=== PATIENT | female | born 1955 | race Caucasian/White ===

== ENCOUNTER 2017-07-07 10:28 | Inpatient (IN) | payer BC, MEDICARE ==
--- NOTE | 2017-07-07 11:04 | ED ---
General Adult HPI - General Chief complaint: Shortness of Breath Stated complaint: Difficulty Breathing Time Seen by Provider: 07/07/17 10:30 Source: patient, RN notes reviewed Mode of arrival: EMS Limitations: physical limitation - History of Present Illness Initial comments: This is a 62-year-old female presents emergency Department with a history of COPD and continues to smoke. Patient states the last 4 days or difficulty breathing is gotten progressively worse. Patient states it got so bad today that she had called EMS. EMS stated that her pulse ox was in the 70s on room air and 91 on BiPAP in the ambulance. Patient states she's had no fever or chills she's had no chest pain or palpitations. Patient states she has been coughing but hasn't been coughing a lot up. Patient denies any abdominal pain patient denies any nausea vomiting diarrhea. Patient denies any lightheadedness or dizziness. - Related Data Home Medications Medication Instructions Recorded Confirmed ALPRAZolam [Xanax] 2 mg PO DAILY PRN 07/07/17 07/07/17 Acyclovir [Zovirax] 800 mg PO BID 07/07/17 07/07/17 Albuterol Sulfate [Proair Hfa] 2 puff INHALATION RT-QID PRN 07/07/17 07/07/17 Atorvastatin [Lipitor] 10 mg PO HS 07/07/17 07/07/17 Breo (Unknown Dose) 1 puff INHALATION RT-DAILY 07/07/17 07/07/17 Cyclobenzaprine [Flexeril] 10 mg PO BID 07/07/17 07/07/17 HYDROcodone/APAP 10-325MG [[place] 1 tab PO BID PRN 07/07/17 07/07/17 10-325] Ibuprofen [Motrin] 800 mg PO TID PRN 07/07/17 07/07/17 Metoprolol Tartrate [Lopressor] 12.5 mg PO BID 07/07/17 07/07/17 Tiotropium [place] [Spiriva] 1 cap INHALATION RT-DAILY 07/07/17 07/07/17 Allergies Allergy/AdvReac Type Severity Reaction Status Date / Time Iodinated Contrast- Oral and Allergy Unknown Verified 07/07/17 10:50 IV Dye iodine Allergy Unknown Verified 07/07/17 10:50 Sulfa (Sulfonamide Allergy Unknown Verified 07/07/17 10:50 Antibiotics) Review of Systems ROS Statement: Those systems with pertinent positive or pertinent negative responses have been documented in the HPI. ROS Other: All systems not noted in ROS Statement are negative. Past Medical History Past Medical History: COPD, Hypertension History of Any Multi-Drug Resistant Organisms: None Reported Past Surgical History: Section Additional Past Surgical History / Comment(s): eye Past Psychological History: Anxiety Smoking Status: Current every day smoker Past Alcohol Use History: None Reported Past Drug Use History: None Reported General Exam - General Exam Comments Initial Comments: GENERAL: Patient is well-developed and well-nourished. Patient is nontoxic and well- hydrated and is in moderate distress. ENT: Neck is soft and supple. No significant lymphadenopathy is noted. Oropharynx is clear. Moist mucous membranes. Neck has full range of motion without eliciting any pain. EYES: The sclera were anicteric and conjunctiva were pink and moist. Extraocular movements were intact and pupils were equal round and reactive to light. Eyelids were unremarkable. PULMONARY: She is diffusely wheezing. CARDIOVASCULAR: There is a regular rate and rhythm without any murmurs gallops or rubs. ABDOMEN: Soft and nontender with normal bowel sounds. No palpable organomegaly was noted. There is no palpable pulsatile mass. SKIN: Skin is clear with no lesions or rashes and otherwise unremarkable. NEUROLOGIC: Patient is alert and oriented x3. Cranial nerves II through XII are grossly intact. Motor and sensory are also intact. Normal speech, volume and content. Symmetrical smile. MUSCULOSKELETAL: Normal extremities with adequate strength and full range of motion. No lower extremity swelling or edema. No calf tenderness. LYMPHATICS: No significant lymphadenopathy is noted PSYCHIATRIC: Normal psychiatric evaluation. Normal interpersonal interactions appears functionally intact in deals appropriately with others. No signs of depression. No signs of anxiety. Limitations: physical limitation Course Vital Signs 07/07/17 07/07/17 07/07/17 10:28 10:35 11:33 Temperature 97.9 F Pulse Rate 109 H 106 H Respiratory 32 H 25 H Rate Blood Pressure 160/104 O2 Sat by Pulse 91 L 95 Oximetry 07/07/17 07/07/17 12:03 12:16 Temperature Pulse Rate 110 H 106 H Respiratory Rate Blood Pressure O2 Sat by Pulse Oximetry Medical Decision Making - Medical Decision Making EKG shows sinus tachycardia at 105 bpm MT interval 136 dresses 78 QT interval 320 QTC is 433. Patient's EKG shows no ST segment elevation. Chest x-ray shows COPD. Patient received a breathing treatments steroids as well as BiPAP and is feeling much improved and is much more comfortable. I spoke with Dr. Esparza he agreed to admit the patient I wrote admitting orders and I continued the breathing treatments steroids on the floor. - Lab Data Result diagrams: 07/07/17 11:09 07/07/17 11:09 Lab Results 07/07/17 07/07/17 07/07/17 Range/Units 11:09 11: 11:09 WBC 9.5 (3.8-10.6) k/uL RBC 4.16 (3.80-5.40) m/uL Hgb 13.8 (11.4-16.0) gm/dL Hct 42.7 (34.0-46.0) % MCV 102.7 H (80.0-100.0) fL MCH 33.2 (25.0-35.0) pg MCHC 32.3 (31.0-37.0) g/dL RDW 13.4 (11.5-15.5) % Plt Count 422 (150-450) k/uL Neutrophils % 81 % Lymphocytes % 6 % Monocytes % 11 % Eosinophils % 0 % Basophils % 0 % Neutrophils # 7.7 (1.3-7.7) k/uL Lymphocytes # 0.6 L (1.0-4.8) k/uL Monocytes # 1.0 (0-1.0) k/uL Eosinophils # 0.0 (0-0.7) k/uL Basophils # 0.0 (0-0.2) k/uL Manual Slide Review Performed Macrocytosis Slight PT (9.0-12.0) sec INR (<1.2) APTT (22.0-30.0) sec Sodium 140 (137-145) mmol/L Potassium 4.4 (3.5-5.1) mmol/L Chloride 100 (98-107) mmol/L Carbon Dioxide 26 (22-30) mmol/L Anion Gap 14 mmol/L BUN 14 (7-17) mg/dL Creatinine 0.46 L (0.52-1.04) mg/dL Est GFR (MDRD) Af Amer >60 (>60 ml/min/1.73 sqM) Est GFR (MDRD) Non-Af >60 (>60 ml/min/1.73 sqM) Glucose 136 H (74-99) mg/dL Calcium 9.3 (8.4-10.2) mg/dL Magnesium 1.7 (1.6-2.3) mg/dL Total Bilirubin 0.5 (0.2-1.3) mg/dL AST 39 H (14-36) U/L ALT 35 (9-52) U/L Alkaline Phosphatase 100 (38-126) U/L Total Creatine Kinase 234 H (30-135) U/L CK-MB (CK-2) 4.1 H* (0.0-2.4) ng/mL CK-MB (CK-2) Rel Index 1.8 Troponin I 0.092 H* (0.000-0.034) ng/mL Total Protein 7.2 (6.3-8.2) g/dL Albumin 3.9 (3.5-5.0) g/dL 07/07/17 Range/Units 11:09 WBC (3.8-10.6) k/uL RBC (3.80-5.40) m/uL Hgb (11.4-16.0) gm/dL Hct (34.0-46.0) % MCV (80.0-100.0) fL MCH (25.0-35.0) pg MCHC (31.0-37.0) g/dL RDW (11.5-15.5) % Plt Count (150-450) k/uL Neutrophils % % Lymphocytes % % Monocytes % % Eosinophils % % Basophils % % Neutrophils # (1.3-7.7) k/uL Lymphocytes # (1.0-4.8) k/uL Monocytes # (0-1.0) k/uL Eosinophils # (0-0.7) k/uL Basophils # (0-0.2) k/uL Manual Slide Review Macrocytosis PT 11.1 (9.0-12.0) sec INR 1.1 (<1.2) APTT 23.7 (22.0-30.0) sec Sodium (137-145) mmol/L Potassium (3.5-5.1) mmol/L Chloride (98-107) mmol/L Carbon Dioxide (22-30) mmol/L Anion Gap mmol/L BUN (7-17) mg/dL Creatinine (0.52-1.04) mg/dL Est GFR (MDRD) Af Amer (>60 ml/min/1.73 sqM) Est GFR (MDRD) Non-Af (>60 ml/min/1.73 sqM) Glucose (74-99) mg/dL Calcium (8.4-10.2) mg/dL Magnesium (1.6-2.3) mg/dL Total Bilirubin (0.2-1.3) mg/dL AST (14-36) U/L ALT (9-52) U/L Alkaline Phosphatase (38-126) U/L Total Creatine Kinase (30-135) U/L CK-MB (CK-2) (0.0-2.4) ng/mL CK-MB (CK-2) Rel Index Troponin I (0.000-0.034) ng/mL Total Protein (6.3-8.2) g/dL Albumin (3.5-5.0) g/dL Critical Care Time Critical Care Time: Yes Total Critical Care Time: 35 Disposition Clinical Impression: COPD with acute exacerbation Disposition: ADMITTED IP TO THIS HOSP Referrals: Hany Salmeron MD [Primary Care Provider] - 1-2 days Time of Disposition: 12:45
[2017-07-07] MEDS ORDERED: IPRATROPIUM 0.5 MG/2.5 ML NEBU INHALATION STA (11:26)
[2017-07-07] MEDS ORDERED: ALBUTEROL NEBULIZED 2.5 MG/3 ML INHALATION STA (11:26)
[2017-07-07 11:54] LABS: ALT 35 U/L (9-52); AST 39 U/L (14-36); Alkaline Phosphatase 100 U/L (38-126); Anion Gap 14 mmol/L; Blood Urea Nitrogen 14 mg/dL (7-17); Calcium 9.3 mg/dL (8.4-10.2); Carbon Dioxide 26 mmol/L (22-30); Chloride 100 mmol/L (98-107); Glucose 136 mg/dL (74-99); Magnesium 1.7 mg/dL (1.6-2.3); Non-African American GFR(MDRD) >60 (>60 ml/min/1.73 sqM); Potassium 4.4 mmol/L (3.5-5.1); Sodium 140 mmol/L (137-145); Total Bilirubin 0.5 mg/dL (0.2-1.3); Total Protein 7.2 g/dL (6.3-8.2)
[2017-07-07 12:00] LABS: Basophils % (A) 0 %; CH 32.9; CHCM 32.2; Eosinophils % (A) 0 %; HCT 42.7 % (34.0-46.0); HDW 2.41; HGB 13.8 gm/dL (11.4-16.0); Immature Gran Flag Slight; Luc # (Auto) 0.17; Luc % (Auto) 2; Lymphocytes # (A) 0.6 k/uL (1.0-4.8); Lymphocytes % (A) 6 %; MCH 33.2 pg (25.0-35.0); MCHC 32.3 g/dL (31.0-37.0); MCV 102.7 fL (80.0-100.0); Macrocytosis Slight; Mean Platelet Volume 7.1; Monocytes % (A) 11 %; Neutrophils # (A) 7.7 k/uL (1.3-7.7); Neutrophils % (A) 81 %; RBC 4.16 m/uL (3.80-5.40); RDW 13.4 % (11.5-15.5); WBC 9.5 k/uL (3.8-10.6); WBC (Perox) 9.86
[2017-07-07 12:02] LABS: INR 1.1 (<1.2); Partial Thromboplastin Time 23.7 sec (22.0-30.0); Prothrombin Time 11.1 sec (9.0-12.0)
--- NOTE | 2017-07-07 12:05 | XR ---
EXAMINATION TYPE: XR chest 1V portable DATE OF EXAM: 07/07/2017 COMPARISON: NONE HISTORY: Difficulty breathing TECHNIQUE: Single frontal view of the chest is obtained. FINDINGS: There are prominent lung volumes. Patient is rotated. Patchy density present at the lung b ases. Chondroid lesion present in the proximal right humerus. Heart size is normal. IMPRESSION: Findings compatible emphysema, correlate to exclude pneumonia. Follow-up recommended as indicated. Chondroid lesion may represent hepatoma or bone infarct, as indicated.
[2017-07-07 12:24] LABS: Manual Review Performed
[2017-07-07 12:29] LABS: Creatine Kinase MB 4.1 ng/mL (0.0-2.4); Troponin I 0.092 ng/mL (0.000-0.034)
[2017-07-07] MEDS: IPRATROPIUM-ALBUTEROL 3 ML NEB INHALATION PRN (17:28)
[2017-07-07] MEDS: methylPREDNISolone SOD SUCCI 125 MG/2 ML VIAL IV SCH (17:44)
[2017-07-07 19:40] LABS: Creatine Kinase MB 4.4 ng/mL (0.0-2.4); Troponin I 0.072 ng/mL (0.000-0.034)
[2017-07-07] MEDS: CYCLOBENZAPRINE 10 MG TAB PO SCH (20:41)
[2017-07-07] MEDS: ATORVASTATIN 10 MG TAB PO SCH (20:41)
[2017-07-07] MEDS: METOPROLOL TARTRATE 12.5 MG TAB PO SCH (20:51)
--- NOTE | 2017-07-07 23:24 | P.HPIM ---
History of Present Illness H&P Date: 07/07/17 Chief Complaint: Shortness of breath Patient is a 60-year-old female with known history of COPD and hypertension and actually good ejection came to the hospital with complaints of shortness of breath which is getting worse for the past 4 days. Patient states it got so bad today that she had called EMS. EMS stated that her pulse ox was in the 70s on room air and 91 on BiPAP in the ambulance. Patient states she's had no fever or chills she's had no chest pain or palpitations. Patient states she has been coughing but hasn't been coughing a lot up. Patient denies any abdominal pain patient denies any nausea vomiting diarrhea. Patient denies any lightheadedness or dizziness. Denied any recent illnesses. Patient denied any prior pulmonary follow-up. No history of intubation. Review of Systems Constitutional: Patient denies any fever or chills . No generalized weakness or weight loss. Abdomen: Patient denied nausea vomiting and diarrhea and abdominal pain. Cardiovascular: Patient denies any chest pain or short of breath no palpitations. No leg swelling Respiratory: Cough with minimal sputum production. Positive shortness of breath Neurologic: Patient denied any numbness or tingling headache. Musculoskeletal: Patient denies any complaints of joint swelling or deformity. Skin: Negative Psychiatric: Negative Endocrine: No heat or cold intolerance. No recent weight gain. Genitourinary: No dysuria or hematuria. All other 14 point ROS negative except the above Past Medical History Past Medical History: COPD, CVA/TIA, Hypertension Additional Past Medical History / Comment(s): Pt had either a TIA in past or had L arm weakness from cervical problems, double vision with surgical correction, pt denies high cholesterol. History of Any Multi-Drug Resistant Organisms: None Reported Past Surgical History: Section Additional Past Surgical History / Comment(s): Pt states she has had 3 eye surgeries to correct double vision, colonoscopy. Past Anesthesia/Blood Transfusion Reactions: No Reported Reaction Smoking Status: Current every day smoker - Past Family History Father Family Medical History: Myocardial Infarction (TN) Additional Family Medical History / Comment(s): Father of a massive [place] at the age of 6yrs Mother Family Medical History: Cancer Additional Family Medical History / Comment(s): Mother of lung cancer at the age of 64yrs. She was a smoker. Medications and Allergies Home Medications Medication Instructions Recorded Confirmed Type ALPRAZolam [Xanax] 2 mg PO DAILY PRN 07/07/17 07/07/17 History Albuterol Sulfate [Proair Hfa] 2 puff INHALATION RT-QID PRN 07/07/17 07/07/17 History Breo (Unknown Dose) 1 puff INHALATION RT-DAILY 07/07/17 07/07/17 History HYDROcodone/APAP 10-325MG [[place] 1 tab PO BID PRN 07/07/17 07/07/17 History 10-325] Ibuprofen [Motrin] 800 mg PO TID PRN 07/07/17 07/07/17 History Metoprolol Tartrate [Lopressor] 12.5 mg PO BID 07/07/17 07/07/17 History Tiotropium [place] [Spiriva] 1 cap INHALATION RT-DAILY 07/07/17 07/07/17 History Allergies Allergy/AdvReac Type Severity Reaction Status Date / Time Iodinated Contrast- Oral and Allergy Unknown Verified 07/07/17 10:50 IV Dye iodine Allergy Unknown Verified 07/07/17 10:50 Sulfa (Sulfonamide Allergy Unknown Verified 07/07/17 10:50 Antibiotics) Physical Exam Vitals: Vital Signs Temp Pulse Pulse Resp BP BP Pulse Ox 07/07/17 15:51 96.2 F L 89 18 116/80 93 L 07/07/17 13:42 98.3 F 103 H 22 189/98 07/07/17 13:22 97.9 F 98 26 H 159/101 98 07/07/17 12:43 107 H 20 157/100 98 07/07/17 12:16 106 H 07/07/17 12:03 110 H 07/07/17 11:33 106 H 07/07/17 10:35 25 H 95 07/07/17 10:28 97.9 F 109 H 32 H 160/104 91 L Intake and Output 07/07/17 07/07/17 07/07/17 06:59 14:59 22:59 Other: # Voids 0 # Bowel Movements 0 Weight 43.273 kg Patient Weight 07/08/17 06:59 Weight 43.273 kg PHYSICAL EXAMINATION: Patient is lying in the bed comfortably, no acute distress, awake alert and oriented.. HEENT: Normocephalic. Neck is supple. Pupils reactive. Nostrils clear. Oral cavity is moist. Ears reveal no drainage. Neck reveals no JVD, carotid bruits, or thyromegaly. CHEST EXAMINATION: Trachea is central. Symmetrical expansion. Bilateral decreased air entry and diffuse wheezing. CARDIAC: Normal S1, S2 with no gallops. No murmurs ABDOMEN: Soft. Bowel sounds normal. No organomegaly. No abdominal bruits. Extremities: reveal no edema. No clubbing or cyanosis Neurologically awake, alert, oriented x3 with well-coordinated movements. No focal deficits noted Skin: No rash or skin lesions. Psychiatric: Operative. Nonsuicidal Musculoskeletal: No joint swelling or deformity. Normal range of motion. Results CBC & Chem 7: 07/07/17 11:09 07/07/17 11:09 Labs: Abnormal Lab Results - Last 24 Hours (Table) 07/07/17 07/07/17 07/07/17 Range/Units 11:09 11:09 11:09 MCV 102.7 H (80.0-100.0) fL Lymphocytes # 0.6 L (1.0-4.8) k/uL Creatinine 0.46 L (0.52-1.04) mg/dL Glucose 136 H (74-99) mg/dL AST 39 H (14-36) U/L Total Creatine Kinase 234 H (30-135) U/L CK-MB (CK-2) 4.1 H* (0.0-2.4) ng/mL Troponin I 0.092 H* (0.000-0.034) ng/mL Thrombosis Risk Factor Assmnt - DVT/VTE Prophylaxis DVT/VTE Prophylaxis: Pharmacologic Prophylaxis ordered - Choose All That Apply Any of the Below Risk Factors Present?: Yes Each Factor Represents 1 point: Abnormal pulmonary function (COPD) Other Risk Factors: Yes Each Risk Factor Represents 2 Points: Age 61-74 years Other congenital or acquired thrombophilia - If yes, enter type in comment: No Thrombosis Risk Factor Assessment Total Risk Factor Score: 3 Thrombosis Risk Factor Assessment Level: Moderate Risk Assessment and Plan Plan: #1 acute hypoxic respiratory failure secondary to COPD exacerbation #2 acute COPD examination #3 elevated troponin level. Likely due to demand mismatch. Possible Non STEMI #4 nicotine addiction #5 history of TIA/CVA #6 DVT prophylaxis Plan: Patient will be continued on BiPAP machine and O2 therapy as needed. Continue with IV steroids and duonebs. Continue telemetry monitoring and serial troponin level. Will consult pulmonary and cardiology. Patient was counseled for smoking cessation. continue the current management and further recommendations based on the clinical course. Time with Patient: Greater than 30
[2017-07-08] MEDS: HEPARIN SODIUM,PORCINE 5,000 UNIT/ML 1 ML VIAL SQ SCH ×3 (00:14→17:10)
[2017-07-08] MEDS: methylPREDNISolone SOD SUCCI 125 MG/2 ML VIAL IV SCH ×4 (00:14→17:11)
[2017-07-08 06:37] LABS: Anion Gap 9 mmol/L; Blood Urea Nitrogen 16 mg/dL (7-17); Calcium 9.8 mg/dL (8.4-10.2); Carbon Dioxide 33 mmol/L (22-30); Chloride 97 mmol/L (98-107); Glucose 165 mg/dL (74-99); Non-African American GFR(MDRD) >60 (>60 ml/min/1.73 sqM); Potassium 4.8 mmol/L (3.5-5.1); Sodium 139 mmol/L (137-145)
[2017-07-08] MEDS: METOPROLOL TARTRATE 12.5 MG TAB PO SCH ×2 (08:36→21:19)
[2017-07-08] MEDS: ASPIRIN 81 MG PO SCH (08:36)
[2017-07-08] MEDS: CYCLOBENZAPRINE 10 MG TAB PO SCH ×2 (08:36→21:19)
--- NOTE | 2017-07-08 08:36 | CONS ---
CONSULTATION Mrs. Urbina is a 62-year-old female with a known history of severe chronic obstructive lung disease, history of chronic tobacco use, hypertension, who presented with progressive dyspnea. It has been going on for the last few days, much worse yesterday. She has been having a cough, productive of dark sputum. Patient has a known history of chronic tobacco use and is limited in her physical activity because of the dyspnea on exertion. The cardiology consultation was requested because of mild elevation of the troponin. She denies any symptoms of chest pain. She has no dizziness. No palpitation. No syncope. No PND, orthopnea, or peripheral edema. She has no prior history of cardiac disease. Her risk factors are remarkable for hypertension, chronic tobacco use. She is nondiabetic. Her lipid profile is not available. MEDICATION: At home include Spiriva, Lopressor 12.5 mg twice a day, Motrin, [place], Breo, albuterol, and alprazolam. REVIEW OF SYSTEMS: RESPIRATORY SYSTEM: She has severe dyspnea on exertion and a cough. GI SYSTEM: No recent GI bleed. No peptic ulcer disease. SYSTEM: No dysuria or hematuria. NERVOUS SYSTEM: No stroke or seizure. PHYSICAL EXAMINATION: She is 62-year-old female, alert, moderately dyspneic. Blood pressure running in the 130 to 160 with a heart rate in the 60s to 80s. HEAD: Normocephalic. EYES: Sclerae nonicteric. NECK: Good upstroke, no bruit, no distension. LUNGS: With severe decrease in the air exchange bilaterally with scattered wheezes. HEART: Regular rate and rhythm, S1, S2. No S3. No rub. ABDOMEN: Soft, nontender. Positive bowel sounds. No organomegaly. EXTREMITIES: No edema. Intact distal pulses. LAB DATA: Revealed BUN and creatinine of 16 and 0.6, potassium 4.8. Troponin 0.092, 0.072 and 0.088. Her white blood cells 9.5, hemoglobin of 13.8. EKG reveals sinus mechanism at a rate of 105 with poor R-wave progression, nonspecific ST-T wave changes. Chest x-ray is consistent with emphysema. IMPRESSION: 1. Severe chronic obstructive lung disease with exacerbation of chronic obstructive pulmonary disease and probable tracheobronchitis. 2. Mild elevation of troponin reflecting a type 2 event, related to the demand-supply mismatch. 3. Chronic tobacco use. 4. History of hypertension. RECOMMENDATION: From the cardiac standpoint, I do not believe that we are dealing with a primary ischemic event. I will obtain echocardiogram to evaluate the left ventricular systolic function and right-sided pressure. Patient will benefit from pulmonary evaluation in view of her severe obstructive lung disease. I discussed with the patient the importance of smoking cessation. Thank you for this consult. Will follow with you. [facility] / IVORYN: [id number] /
[2017-07-08] MEDS: IPRATROPIUM-ALBUTEROL 3 ML NEB INHALATION PRN ×4 (08:44→20:50)
--- NOTE | 2017-07-08 11:19 | ECHOF ---
Referral Reason:sob MEASUREMENTS -------- HEIGHT: 162.6 cm WEIGHT: 40.8 kg BP: RVIDd: 3.2 cm (< 3.3) IVSd: 0.7 cm (0.6 - 1.1) LVIDd: 3.4 cm (3.9 - 5.3) LVPWd: 0.9 cm (0.6 - 1.1) IVSs: 1.0 cm LVIDs: 1.6 cm LVPWs: 1.0 cm Ao Diam: 2.5 cm (2.0 - 3.7) AV Cusp: 1.2 cm (1.5 - 2.6) LA Diam: 2.5 cm (2.7 - 3.8) MV EXCURSION: 18.742 mm (> 18.000) MV EF SLOPE: 169 mm/s (70 - 150) EPSS: 0.6 cm MV E Manan: 0.87 m/s MV DecT: 191 ms MV A Manan: 0.68 m/s MV E/A Ratio: 1.30 AV maxP.44 mmHg AV meanP.07 mmHg RAP: 20.00 mmHg RVSP: 80.28 mmHg FINDINGS -------- Resting tachycardia (HR>100bpm). This was a technically difficult study with suboptimal views. Pt has severe COPD. Images taken from subcoastals. The left ventricular size is normal. Left ventricular wall thickness is normal. Overall left ventricular systolic function is normal with, an EF between 55 - 60 %. The right ventricle is mildly enlarged. The left atrium is normal in size. RA appears enlarged. Aortic valve is trileaflet and is mildly thickened. The mitral valve leaflets are mildly thickened. Moderate mitral regurgitation is present. Moderate tricuspid regurgitation present. There is moderate pulmonary hypertension.RVSP is 55 mm Pulmonic valve appears structurally normal. The aortic root size is normal. The inferior vena cava is severely dilated. The pericardium is normal. CONCLUSIONS -------- 1. Resting tachycardia (HR>100bpm). 2. Aortic valve is trileaflet and is mildly thickened. 3. The mitral valve leaflets are mildly thickened. 4. Moderate mitral regurgitation is present. 5. Moderate tricuspid regurgitation present. 6. Pulmonic valve appears structurally normal. 7. The aortic root size is normal. 8. The inferior vena cava is severely dilated. 9. Moderate pulmonary HTN 10. This was a technically difficult study with suboptimal views. 11. Pt has severe COPD. Images taken from subcoastals. 12. The left ventricular size is normal. 13. Left ventricular wall thickness is normal. 14. Overall left ventricular systolic function is normal with, an EF between 55 - 60 %. 15. The right ventricle is mildly enlarged. 16. The left atrium is normal in size. 17. RA appears enlarged. TRANSPLANT NURSE PRACTITIONER: Aury Ortega RDCS
--- NOTE | 2017-07-08 11:32 | P.CNPUL ---
History of Present Illness Consult date: 07/08/17 Reason for consult: dyspnea, COPD History of present illness: A very pleasant 62-year-old female patient was Hospital as for worsening shortness of breath. The patient is known to have COPD and she is a chronic smoker witnessed to smoke around 1 pack of cigarettes on a daily basis. Her breathing has been progressively getting worse and she had seen Dr. Salmeron on outpatient basis with treated this patient without any improvement. Subsequently the patient came into the emergency department yesterday because of significant respiratory distress and impending respiratory failure. At that point the patient was placed on a BiPAP and currently still on a BiPAP for respiratory support at a pressure of 10/5 cm of water and she is tolerating it well. She remains actively bronchospastic and wheezy. Her chest x-ray shows hyperinflation and enlarged lung volumes without any acute pulmonary infiltration or pneumonias. No signs of any failure. No change in mental status. No pleurisy. No hemoptysis. No angina. No swelling lower extremities. This is the patient's first hospitalization for an acute COPD exacerbation. The patient has not been utilizing oxygen or any form of regular inhalers at home. She has a nebulizer at home. No aspiration. No travel history. No recurrent pneumonias. Review of Systems Constitutional: Reports chronic pain, Reports fatigue, Reports poor appetite, Reports weakness Eyes: denies blurred vision, denies bulging eye, denies decreased vision Ears: deny: decreased hearing, ear discharge, earache Ears, nose, mouth and throat: Denies headache, Denies sore throat Cardiovascular: Reports decreased exercise tolerance, Reports dyspnea on exertion, Reports shortness of breath Respiratory: Reports cough, Reports cough with sputum, Reports dyspnea, Reports wheezing Gastrointestinal: Reports change in bowel habits, Reports loss of appetite Musculoskeletal: Denies myalgias Musculoskeletal: absent: ankle pain, ankle stiffness, ankle swelling Integumentary: Denies pruritus, Denies rash Neurological: Reports weakness Psychiatric: Reports anxiety, Reports sleep disturbances Endocrine: Denies fatigue, Denies weight change Past Medical History Past Medical History: COPD, CVA/TIA, Hypertension Additional Past Medical History / Comment(s): COPD, history of TIA, chronic neck pain secondary to degenerative arthritis, cachexia History of Any Multi-Drug Resistant Organisms: None Reported Past Surgical History: Section Additional Past Surgical History / Comment(s): Pt states she has had 3 eye surgeries to correct double vision, colonoscopy. Past Anesthesia/Blood Transfusion Reactions: No Reported Reaction Smoking Status: Current every day smoker (The patient smokes one pack of cigarettes a day in the past used to smoke more than that. She carries more than [id number] smoking history.) - Past Family History Father Family Medical History: Myocardial Infarction (MS) Additional Family Medical History / Comment(s): Father of a massive MS at the age of 6yrs Mother Family Medical History: Cancer Additional Family Medical History / Comment(s): Mother of lung cancer at the age of 64yrs. She was a smoker. Medications and Allergies Home Medications Medication Instructions Recorded Confirmed Type ALPRAZolam [Xanax] 2 mg PO DAILY PRN 07/07/17 07/07/17 History Albuterol Sulfate [Proair Hfa] 2 puff INHALATION RT-QID PRN 07/07/17 07/07/17 History Breo (Unknown Dose) 1 puff INHALATION RT-DAILY 07/07/17 07/07/17 History HYDROcodone/APAP 10-325MG [[place] 1 tab PO BID PRN 07/07/17 07/07/17 History 10-325] Ibuprofen [Motrin] 800 mg PO TID PRN 07/07/17 07/07/17 History Metoprolol Tartrate [Lopressor] 12.5 mg PO BID 07/07/17 07/07/17 History Tiotropium [place] [Spiriva] 1 cap INHALATION RT-DAILY 07/07/17 07/07/17 History Allergies Allergy/AdvReac Type Severity Reaction Status Date / Time Iodinated Contrast- Oral and Allergy Unknown Verified 07/07/17 10:50 IV Dye iodine Allergy Unknown Verified 07/07/17 10:50 Sulfa (Sulfonamide Allergy Unknown Verified 07/07/17 10:50 Antibiotics) Physical Exam Vitals: Vital Signs Temp Pulse Pulse Resp BP BP BP 07/08/17 09:03 100 07/08/17 08:48 100 07/08/17 08:47 16 07/08/17 08:36 97.8 F 76 22 180/85 07/08/17 04:30 98.2 F 57 L 18 161/94 07/08/17 00:00 97.2 F L 83 18 134/76 07/07/17 20:00 97.5 F L 95 20 175/84 07/07/17 17:37 102 H 07/07/17 17:28 100 07/07/17 15:51 96.2 F L 89 18 116/80 07/07/17 13:42 98.3 F 103 H 22 189/98 07/07/17 13:22 97.9 F 98 26 H 159/101 07/07/17 12:43 107 H 20 157/100 07/07/17 12:16 106 H 07/07/17 12:03 110 H 07/07/17 11:33 106 H Pulse Ox 07/08/17 09:03 07/08/17 08:48 07/08/17 08:47 96 07/08/17 08:36 86 L 07/08/17 04:30 98 07/08/17 00:00 96 07/07/17 20:00 96 07/07/17 17:37 07/07/17 17:28 07/07/17 15:51 93 L 07/07/17 13:42 07/07/17 13:22 98 07/07/17 12:43 98 07/07/17 12:16 07/07/17 12:03 07/07/17 11:33 Intake and Output 07/07/17 07/08/17 07/08/17 22:59 06:59 14:59 Intake Total 180 60 75 Output Total 200 Balance -20 60 75 Intake: Oral 180 60 75 Output: Urine 200 Other: Voiding Method Toilet Toilet Toilet # Voids 1 Weight 41.1 kg 41.1 kg Patient Weight 07/09/17 06:59 Weight 41.1 kg The patient is in [id number] degree of respiratory distress however she is able to tolerate the full face BiPAP mask without any major difficulties and she is synchronous with the BiPAP. She is thin and frail.Head exam was generally normal. There was no scleral icterus or corneal arcus. Mucous membranes were moist.Neck was supple and without jugular venous distension, thyromegaly, or carotid bruits. Carotids were easily palpable bilaterally. There was no adenopathy. Lung sounds are markedly diminished bilaterally along with prolongation of expiratory phase of breathing and diffuse expiratory wheezes throughout the lung dorman bilaterally.Cardiac exam revealed the PMI to be normally situated and sized. The rhythm was regular and no extrasystoles were noted during several minutes of auscultation. The first and second heart sounds were normal and physiologic splitting of the second heart sound was noted. There were no murmurs, rubs, clicks, or gallops.Abdominal exam revealed normal bowel sounds. The abdomen was soft, non-tender, and without masses, organomegaly, or appreciable enlargement of the abdominal aorta.Examination of the extremities revealed easily palpable radial, femoral and pedal pulses. There was no cyanosis, clubbing or edema.Examination of the skin revealed no evidence of significant rashes, suspicious appearing nevi or other concerning lesions. Neurologically the patient is oa3 and there is no focal neurological deficit. Skin is negative for cellulitis ulcers or wounds. Results - Laboratory Findings CBC and BMP: 07/07/17 11:09 07/08/17 05:57 PT/INR, D-dimer PT 11.1 sec (9.0-12.0) 07/07/17 11:09 INR 1.1 (<1.2) 07/07/17 11:09 Abnormal lab findings: Abnormal Labs 07/07/17 07/07/17 07/07/17 11:09 11:09 11:09 MCV 102.7 H Lymphocytes # 0.6 L Chloride Carbon Dioxide Creatinine 0.46 L Glucose 136 H AST 39 H Total Creatine Kinase 234 H CK-MB (CK-2) 4.1 H* Troponin I 0.092 H* 07/07/17 07/07/17 07/08/17 18:36 23:21 05:57 MCV Lymphocytes # Chloride 97 L Carbon Dioxide 33 H Creatinine Glucose 165 H AST Total Creatine Kinase 189 H CK-MB (CK-2) 4.4 H* Troponin I 0.072 H* 0.088 H* - Diagnostic Findings Chest x-ray: image reviewed Assessment and Plan Plan: Impression 1 acute COPD exacerbation with secondary shortness of breath. The patient was in significant respiratory distress at time of admission currently is on BiPAP for respiratory support 2 acute BiPAP dependent respiratory failure secondary to COPD exacerbation 3 chronic smoker 4 chronic neck pain 5 hypertension 6 remote history of TIA Plan We'll put this patient on DuoNeb nebulized treatments around the clock. We'll start the patient on a combination of IV Solu-Medrol 60 mg every 6 hours, Pulmicort Respules 0.5 mg twice a day and Perforomist neb last treatment twice a day. Cover this patient with Levaquin as an empiric antibiotic coverage 500 mg by mouth on a daily basis. Smoking cessation counseling. Nicotine patch. Heparin subcu for DVT prophylaxis. Continue BiPAP for today and will continue to follow up this patient make further adjustments in her treatment based on her overall picture response.
[2017-07-08 11:40] LABS: Glucose,Whole Blood 130 mg/dL (75-99)
[2017-07-08] MEDS: INSULIN LISPRO (humaLOG) 300 UNIT/3 ML VIAL SQ SCH ×3 (11:42→21:16)
[2017-07-08 12:17] LABS: Hemoglobin A1C 5.5 % (4.2-6.1)
[2017-07-08 16:24] LABS: Glucose,Whole Blood 137 mg/dL (75-99)
[2017-07-08] MEDS: LEVOFLOXACIN 500 MG TAB PO SCH (17:10)
[2017-07-08] MEDS ORDERED: IPRATROPIUM-ALBUTEROL 3 ML NEB INHALATION PRN (17:32)
[2017-07-08] MEDS: LORazepam 2 MG/ML INJ IV PRN (17:44)
[2017-07-08] MEDS ORDERED: SYMBICORT 160-4.5 MCG INHALER INHALATION SCH (20:00)
[2017-07-08 20:47] LABS: Glucose,Whole Blood 117 mg/dL (75-99)
[2017-07-08] MEDS: FORMOTEROL FUMARATE 20 MCG/2 ML NEBU INHALATION SCH (20:50)
[2017-07-08] MEDS: BUDESONIDE 0.5 MG/2 ML NEBU INHALATION SCH (20:50)
[2017-07-08] MEDS: ATORVASTATIN 10 MG TAB PO SCH (21:19)
[2017-07-09] MEDS: HEPARIN SODIUM,PORCINE 5,000 UNIT/ML 1 ML VIAL SQ SCH ×4 (00:48→23:08)
[2017-07-09] MEDS: methylPREDNISolone SOD SUCCI 125 MG/2 ML VIAL IV SCH ×5 (00:48→23:08)
--- NOTE | 2017-07-09 01:19 | P.PN ---
Subjective Progress Note Date: 07/08/17 Principal diagnosis: Acute COPD exacerbation Patient is a 60-year-old female with known history of COPD and hypertension and actually good ejection came to the hospital with complaints of shortness of breath which is getting worse for the past 4 days. Patient states it got so bad today that she had called EMS. EMS stated that her pulse ox was in the 70s on room air and 91 on BiPAP in the ambulance. Patient states she's had no fever or chills she's had no chest pain or palpitations. Patient states she has been coughing but hasn't been coughing a lot up. Patient denies any abdominal pain patient denies any nausea vomiting diarrhea. Patient denies any lightheadedness or dizziness. Denied any recent illnesses. Patient denied any prior pulmonary follow-up. No history of intubation. On 07/08/2017 Patient is still having symptoms and short of breath and currently on BiPAP. Patient is still wheezing and diminished basilar bilateral air entry. No fever no chills. Patient was seen by pulmonary. No complaints of chest pain. No nausea vomiting or abdominal pain. All other review of systems negative except the above Current medications reviewed. Objective - Vital Signs Vital signs: Vital Signs Temp 96.4 F L 07/08/17 15:00 Pulse 94 07/08/17 21:15 Resp 17 07/08/17 15:00 BP 128/82 07/08/17 15:00 Pulse Ox 97 07/08/17 15:00 Intake & Output 07/08/17 07/08/17 07/09/17 06:59 18:59 06:59 Intake Total 60 195 Balance 60 195 Weight 41.1 kg 41.1 kg Intake: Oral 60 195 Other: Voiding Method Toilet Toilet # Voids 1 - Exam PHYSICAL EXAMINATION: Patient is lying in the bed comfortably, no acute distress, awake alert and oriented.. HEENT: Normocephalic. Neck is supple. Pupils reactive. Nostrils clear. Oral cavity is moist. Ears reveal no drainage. Neck reveals no JVD, carotid bruits, or thyromegaly. CHEST EXAMINATION: Trachea is central. Symmetrical expansion. Bilateral diminished air entry and wheezing diffusely. Rhonchi as well CARDIAC: Normal S1, S2 with no gallops. No murmurs ABDOMEN: Soft. Bowel sounds normal. No organomegaly. No abdominal bruits. Extremities: reveal no edema. No clubbing or cyanosis Neurologically awake, alert, oriented x3 with well-coordinated movements. No focal deficits noted Skin: No rash or skin lesions. Psychiatric: Operative. Nonsuicidal Musculoskeletal: No joint swelling or deformity. Normal range of motion. - Labs CBC & Chem 7: 07/07/17 11:09 07/08/17 05:57 Labs: Abnormal Lab Results - Last 24 Hours (Table) 07/07/17 07/08/17 07/08/17 Range/Units 23:21 05:57 11:37 Chloride 97 L (98-107) mmol/L Carbon Dioxide 33 H (22-30) mmol/L Glucose 165 H (74-99) mg/dL POC Glucose (mg/dL) 130 H (75-99) mg/dL Troponin I 0.088 H* (0.000-0.034) ng/mL 07/08/17 07/08/17 Range/Units 16:14 20:45 Chloride (98-107) mmol/L Carbon Dioxide (22-30) mmol/L Glucose (74-99) mg/dL POC Glucose (mg/dL) 137 H 117 H (75-99) mg/dL Troponin I (0.000-0.034) ng/mL Microbiology - Last 24 Hours (Table) 07/07/17 11:09 Blood Culture - Preliminary Blood No Growth after 24 hours Assessment and Plan Plan: #1 acute hypoxic respiratory failure secondary to COPD exacerbation #2 acute COPD examination #3 elevated troponin level. Likely due to demand mismatch. Possible Non STEMI #4 nicotine addiction #5 history of TIA/CVA #6 DVT prophylaxis Plan: Patient will be continued on BiPAP machine and O2 therapy as needed. Continue with IV steroids and duonebs. Pulmicort and perforamist was added. Added levofloxacin for empiric antibiotic coverage. Continue telemetry monitoring and serial troponin level. Being followed by pulmonary and cardiology. Patient was counseled for smoking cessation. continue the current management and further recommendations based on the clinical course. Time with Patient: Greater than 30
[2017-07-09 06:22] LABS: Glucose,Whole Blood 133 mg/dL (75-99)
[2017-07-09] MEDS: INSULIN LISPRO (humaLOG) 300 UNIT/3 ML VIAL SQ SCH ×4 (06:52→21:08)
[2017-07-09 07:12] LABS: CHCM 32.1; HCT 41.8 % (34.0-46.0); HGB 13.1 gm/dL (11.4-16.0); Immature Gran Flag Slight; MCH 32.4 pg (25.0-35.0); MCHC 31.2 g/dL (31.0-37.0); MCV 103.6 fL (80.0-100.0); Macrocytosis Slight; Mean Platelet Volume 7.7; RBC 4.04 m/uL (3.80-5.40); RDW 14.1 % (11.5-15.5); WBC 9.3 k/uL (3.8-10.6); WBC (Perox) 9.31
[2017-07-09 07:15] LABS: Anion Gap 11 mmol/L; Blood Urea Nitrogen 26 mg/dL (7-17); Calcium 9.3 mg/dL (8.4-10.2); Carbon Dioxide 33 mmol/L (22-30); Chloride 98 mmol/L (98-107); Glucose 114 mg/dL (74-99); Non-African American GFR(MDRD) >60 (>60 ml/min/1.73 sqM); Potassium 5.1 mmol/L (3.5-5.1); Sodium 142 mmol/L (137-145)
[2017-07-09 07:54] LABS: Add Differential Manual Differential
[2017-07-09 07:58] LABS: Band Neutrophils % 6 %; Nucleated Red Blood Cells 0 /100 WBC (0-0); Total Cells Counted 100
[2017-07-09 07:59] LABS: Manual Review Performed
[2017-07-09] MEDS: FORMOTEROL FUMARATE 20 MCG/2 ML NEBU INHALATION SCH ×2 (08:34→19:46)
[2017-07-09] MEDS: BUDESONIDE 0.5 MG/2 ML NEBU INHALATION SCH ×2 (08:34→19:46)
[2017-07-09] MEDS: IPRATROPIUM-ALBUTEROL 3 ML NEB INHALATION PRN ×4 (08:34→19:46)
[2017-07-09] MEDS: LORazepam 2 MG/ML INJ IV PRN ×2 (08:42→20:31)
[2017-07-09] MEDS: METOPROLOL TARTRATE 12.5 MG TAB PO SCH ×2 (09:35→21:08)
[2017-07-09] MEDS: CYCLOBENZAPRINE 10 MG TAB PO SCH ×2 (09:35→21:08)
[2017-07-09] MEDS: ASPIRIN 81 MG PO SCH (09:35)
[2017-07-09] MEDS: ALPRAZolam 0.5 MG TAB PO PRN (11:15)
[2017-07-09 11:43] LABS: Glucose,Whole Blood 155 mg/dL (75-99)
--- NOTE | 2017-07-09 11:48 | CDI ---
In responding to this query, please exercise your independent professional judgment. The [facility] Coding Staff and Clinical Documentation Specialists appreciate your assistance in clarifying documentation, maintaining compliance with coding guidelines, accurately documenting patients condition and capturing severity of illness. The fact that a question is asked does not imply that any particular answer is desired or expected. Communication forms are a method of clarifying documentation and are not made part of the Legal Health Record. Thank you in advance for your clarification. Last Revision, July 2015 Nadia Ellis [address] [place] [address] Documentation Clarification Form Date: 07/09/2017 11:33:00 AM From: Amanda Vargas RN, CCDS Admit Date: 07/07/2017 12:45:00 PM Patient Name: Silva Urbina Visit Number: [id number] Dr. Cielo Waters History/Risk Factors: COPD, CVA Clinical Indicators: Labs: Albumin/ Total Protein: 3.9/7.2 Current BMI: 15.7 Insufficient energy intake: SOB, Dyspnea, BIPAP dependant Respiratory Failure Weight Loss: steady weight loss over last 5 years Loss of subcutaneous fat & Loss of muscle mass: Dietary Consult: visible muscle and fat wasting, temporal scooping, loose skin and hallow orbital region surrounding eye, protruding clerical bone, deressed area between thumb and forefinger. Treatment: Dietary Consult: Completed 07/08 Supplements: Enlive TID Lab monitoring: am daily In your professional opinion, can you please clarify if these findings signify one of the following conditions? Mild Protein-Calorie Malnutrition Moderate Protein-Calorie Malnutrition Severe Protein-Calorie Malnutrition Other condition, please specify Unable to determine Please document in your progress notes and discharge summary in order to capture severity of illness and risk of mortality. Include clinical findings that support your diagnosis. FYI: Press F11 to launch patient chart. MTDD
--- NOTE | 2017-07-09 12:30 | P.PN ---
Subjective Progress Note Date: 07/09/17 A very pleasant 62-year-old female patient was Hospital as for worsening shortness of breath. The patient is known to have COPD and she is a chronic smoker witnessed to smoke around 1 pack of cigarettes on a daily basis. Her breathing has been progressively getting worse and she had seen Dr. Salmeron on outpatient basis with treated this patient without any improvement. Subsequently the patient came into the emergency department yesterday because of significant respiratory distress and impending respiratory failure. At that point the patient was placed on a BiPAP and currently still on a BiPAP for respiratory support at a pressure of 10/5 cm of water and she is tolerating it well. She remains actively bronchospastic and wheezy. Her chest x-ray shows hyperinflation and enlarged lung volumes without any acute pulmonary infiltration or pneumonias. No signs of any failure. No change in mental status. No pleurisy. No hemoptysis. No angina. No swelling lower extremities. This is the patient's first hospitalization for an acute COPD exacerbation. The patient has not been utilizing oxygen or any form of regular inhalers at home. She has a nebulizer at home. No aspiration. No travel history. No recurrent pneumonias. On 07/09/2017 the patient is feeling less short of breath compared to yesterday. The patient was taken off the BiPAP this morning. She is able to speak of. This is. Last bronchus spastic and wheezy compared to yesterday. No angina. No nausea or vomiting. No abdominal pain. No swelling lower extremities. She has some degree of anxiety for which she is on Xanax. She seems to be, that not to smoke anymore. I still have this patient a combination of DuoNeb nebulized treatments around the clock, Pulmicort Respules , Perforomist ablation missed twice a day, empiric antibiotic coverage with Levaquin and IV Solu-Medrol. Objective - Vital Signs Vital signs: Vital Signs Temp 97.4 F L 07/09/17 11:15 Pulse 103 H 07/09/17 11:15 Resp 22 07/09/17 11:15 BP 167/98 07/09/17 11:15 Pulse Ox 97 07/09/17 11:15 Intake & Output 07/08/17 07/09/17 07/09/17 18:59 06:59 18:59 Intake Total 195 120 Balance 195 120 Weight 41.1 kg 41.5 kg Intake: Oral 195 120 Other: Voiding Method Toilet Toilet Toilet - Exam The patient appeared well nourished and normally developed. Vital signs as documented. Head exam is unremarkable. No scleral icterus or corneal arcus noted. Neck is without jugular venous distension, thyromegaly, or carotid bruits. Carotid upstrokes are brisk bilaterally. Lungs are diminished breath sounds bilaterally along with prolongation of expiratory phase of breathing and scattered expiratory wheezes heard throughout the lung dorman. Overall lung sounds are improved compared to yesterday. There is improved air entry bilaterally.. Cardiac exam reveals the PMI to be normally sized and situated. Rhythm is regular. First and second heart sounds normal. No murmurs, rubs or gallops. Abdominal exam reveals normal bowel sounds, no masses, no organomegaly and no aortic enlargement. Extremities are nonedematous and both femoral and pedal pulses are normal.Examination of the skin revealed no evidence of significant rashes, suspicious appearing nevi or other concerning lesions. Neurologically the patient is awake and alert and following commands and answering questions appropriately. Psychiatry shows some increased level of anxiety. - Labs CBC & Chem 7: 07/09/17 05:39 07/09/17 05:39 Labs: Abnormal Lab Results - Last 24 Hours (Table) 07/08/17 07/08/17 07/09/17 Range/Units 16:14 20:45 05:39 MCV 103.6 H (80.0-100.0) fL Neutrophils # (Manual) 8.30 H (1.3-7.7) k/uL Lymphocytes # (Manual) 0.65 L (1.0-4.8) k/uL Carbon Dioxide (22-30) mmol/L BUN (7-17) mg/dL Glucose (74-99) mg/dL POC Glucose (mg/dL) 137 H 117 H (75-99) mg/dL 07/09/17 07/09/17 07/09/17 Range/Units 05:39 06:20 11:42 MCV (80.0-100.0) fL Neutrophils # (Manual) (1.3-7.7) k/uL Lymphocytes # (Manual) (1.0-4.8) k/uL Carbon Dioxide 33 H (22-30) mmol/L BUN 26 H (7-17) mg/dL Glucose 114 H (74-99) mg/dL POC Glucose (mg/dL) 133 H 155 H (75-99) mg/dL Microbiology - Last 24 Hours (Table) 07/07/17 11:09 Blood Culture - Preliminary Blood No Growth after 24 hours Assessment and Plan Plan: Impression 1 acute COPD exacerbation with secondary shortness of breath. The patient was in significant respiratory distress at time of admission currently is on BiPAP for respiratory support 2 acute BiPAP dependent respiratory failure secondary to COPD exacerbation 3 chronic smoker 4 chronic neck pain 5 hypertension 6 remote history of TIA Plan The patient is improving. She is less short of breath. Use the BiPAP on and off during the day. Continue the high-dose on a Medrol. Continue the rest of the bronchodilators. Smoking cessation counseling was done. Anticipate further improvement over the next 24 hours.
--- NOTE | 2017-07-09 16:39 | P.PN ---
Subjective Progress Note Date: 07/09/17 Principal diagnosis: Shortness of breath This is a 62-year-old female with known history of severe COPD, chronic nicotine dependence, hypertension, who presented to the hospital with progressive dyspnea. Currently receiving treatment for exacerbation of COPD. She did have abnormal troponins not suggestive of acute coronary syndrome. A cardiogram with Doppler study reveals an ejection fraction of 55-60%. Moderate pulmonary hypertension. Objective - Vital Signs Vital signs: Vital Signs Temp 97.6 F 07/09/17 15:23 Pulse 105 H 07/09/17 16:05 Resp 22 07/09/17 15:23 BP 159/88 07/09/17 15:23 Pulse Ox 96 07/09/17 15:23 Intake & Output 07/08/17 07/09/17 07/09/17 18:59 06:59 18:59 Intake Total 195 120 260 Balance 195 120 260 Weight 41.1 kg 41.5 kg Intake: Oral 195 120 260 Other: Voiding Method Toilet Toilet Toilet - Exam PHYSICAL EXAMINATION: HEENT: Head is atraumatic, normocephalic. Pupils equal, round. Neck is supple. There is no elevated jugular venous pressure. HEART EXAMINATION: Heart S1, S2 normal. No murmur or gallop heard. CHEST EXAMINATION: Decreased air exchange bilaterally with scattered wheezes throughout. ABDOMEN: Soft, nontender. Bowel sounds are heard. No organomegaly noted. EXTREMITIES: 2+ peripheral pulses with no evidence of peripheral edema and no calf tenderness noted. NEUROLOGIC [patient is awake, alert and oriented -3.] . - Labs CBC & Chem 7: 07/09/17 05:39 07/09/17 05:39 Labs: Abnormal Lab Results - Last 24 Hours (Table) 07/08/17 07/09/17 07/09/17 Range/Units 20:45 05:39 05:39 MCV 103.6 H (80.0-100.0) fL Neutrophils # (Manual) 8.30 H (1.3-7.7) k/uL Lymphocytes # (Manual) 0.65 L (1.0-4.8) k/uL Carbon Dioxide 33 H (22-30) mmol/L BUN 26 H (7-17) mg/dL Glucose 114 H (74-99) mg/dL POC Glucose (mg/dL) 117 H (75-99) mg/dL 07/09/17 07/09/17 Range/Units 06:20 11:42 MCV (80.0-100.0) fL Neutrophils # (Manual) (1.3-7.7) k/uL Lymphocytes # (Manual) (1.0-4.8) k/uL Carbon Dioxide (22-30) mmol/L BUN (7-17) mg/dL Glucose (74-99) mg/dL POC Glucose (mg/dL) 133 H 155 H (75-99) mg/dL Microbiology - Last 24 Hours (Table) 07/07/17 11:09 Blood Culture - Preliminary Blood No Growth after 48 hours Assessment and Plan (1) Elevated troponin Status: Acute (2) Nicotine dependence Status: Acute (3) COPD with acute exacerbation Status: Acute Plan: Cardiology's perspective, we'll follow this patient with you now on an as- needed basis only, please don't hesitate to call with any questions. DNP note has been reviewed, I agree with a documented findings and plan of care. Patient was seen and examined.
[2017-07-09 16:42] LABS: Glucose,Whole Blood 164 mg/dL (75-99)
[2017-07-09] MEDS: LEVOFLOXACIN 500 MG TAB PO SCH (17:40)
[2017-07-09 17:47] LABS: Potassium 4.3 mmol/L (3.5-5.1)
[2017-07-09 20:40] LABS: Glucose,Whole Blood 177 mg/dL (75-99)
[2017-07-09] MEDS: ATORVASTATIN 10 MG TAB PO SCH (21:08)
--- NOTE | 2017-07-10 00:22 | P.PN ---
Subjective Progress Note Date: 07/09/17 Principal diagnosis: Acute COPD exacerbation Patient is a 60-year-old female with known history of COPD and hypertension and actually good ejection came to the hospital with complaints of shortness of breath which is getting worse for the past 4 days. Patient states it got so bad today that she had called EMS. EMS stated that her pulse ox was in the 70s on room air and 91 on BiPAP in the ambulance. Patient states she's had no fever or chills she's had no chest pain or palpitations. Patient states she has been coughing but hasn't been coughing a lot up. Patient denies any abdominal pain patient denies any nausea vomiting diarrhea. Patient denies any lightheadedness or dizziness. Denied any recent illnesses. Patient denied any prior pulmonary follow-up. No history of intubation. On 07/08/2017 Patient is still having symptoms and short of breath and currently on BiPAP. Patient is still wheezing and diminished basilar bilateral air entry. No fever no chills. Patient was seen by pulmonary. No complaints of chest pain. No nausea vomiting or abdominal pain. All other review of systems negative except the above 07/09/2017 Patient did improve symptomatically. Currently saturating well another cannula. BiPAP daily at bedtime as needed. Clinically improving. Now, as her chest pain no worsening short of breath. No nausea vomiting or abdominal pain. All other review of systems negative except the above. Current medications reviewed. Objective - Vital Signs Vital signs: Vital Signs Temp 97.6 F 07/09/17 20:00 Pulse 110 H 07/09/17 20:10 Resp 22 07/09/17 20:00 BP 147/96 07/09/17 20:00 Pulse Ox 98 07/09/17 20:00 Intake & Output 07/09/17 07/09/17 07/10/17 06:59 18:59 06:59 Intake Total 120 260 Output Total 800 Balance 120 260 -800 Weight 41.5 kg Intake: Oral 120 260 Output: Urine 800 Other: Voiding Method Toilet Toilet Bedside Commode - Exam PHYSICAL EXAMINATION: Patient is lying in the bed comfortably, no acute distress, awake alert and oriented.. HEENT: Normocephalic. Neck is supple. Pupils reactive. Nostrils clear. Oral cavity is moist. Ears reveal no drainage. Neck reveals no JVD, carotid bruits, or thyromegaly. CHEST EXAMINATION: Trachea is central. Symmetrical expansion. Bilateral air entry improved. Expiratory wheezing positive CARDIAC: Normal S1, S2 with no gallops. No murmurs ABDOMEN: Soft. Bowel sounds normal. No organomegaly. No abdominal bruits. Extremities: reveal no edema. No clubbing or cyanosis Neurologically awake, alert, oriented x3 with well-coordinated movements. No focal deficits noted Skin: No rash or skin lesions. Psychiatric: Operative. Nonsuicidal Musculoskeletal: No joint swelling or deformity. Normal range of motion. - Labs CBC & Chem 7: 07/09/17 05:39 07/09/17 17:13 Labs: Abnormal Lab Results - Last 24 Hours (Table) 07/09/17 07/09/17 07/09/17 Range/Units 05:39 05:39 06:20 MCV 103.6 H (80.0-100.0) fL Neutrophils # (Manual) 8.30 H (1.3-7.7) k/uL Lymphocytes # (Manual) 0.65 L (1.0-4.8) k/uL Carbon Dioxide 33 H (22-30) mmol/L BUN 26 H (7-17) mg/dL Glucose 114 H (74-99) mg/dL POC Glucose (mg/dL) 133 H (75-99) mg/dL 07/09/17 07/09/17 07/09/17 Range/Units 11:42 16:40 20:39 MCV (80.0-100.0) fL Neutrophils # (Manual) (1.3-7.7) k/uL Lymphocytes # (Manual) (1.0-4.8) k/uL Carbon Dioxide (22-30) mmol/L BUN (7-17) mg/dL Glucose (74-99) mg/dL POC Glucose (mg/dL) 155 H 164 H 177 H (75-99) mg/dL Microbiology - Last 24 Hours (Table) 07/07/17 11:09 Blood Culture - Preliminary Blood No Growth after 48 hours Assessment and Plan Plan: #1 acute hypoxic respiratory failure secondary to COPD exacerbation #2 acute COPD exacerbation #3 elevated troponin level. Likely due to demand mismatch. Possible Non STEMI #4 nicotine addiction #5 history of TIA/CVA #6 DVT prophylaxis Plan: Patient will be continued on BiPAP machine daily at bedtime and O2 therapy as needed. Continue with IV steroids and duonebs. Pulmicort and perforamist was added. Added levofloxacin for empiric antibiotic coverage. Continue telemetry monitoring and serial troponin level. Being followed by pulmonary and cardiology. Patient was counseled for smoking cessation. continue the current management and further recommendations based on the clinical course.
[2017-07-10 06:06] LABS: Glucose,Whole Blood 145 mg/dL (75-99)
[2017-07-10] MEDS: INSULIN LISPRO (humaLOG) 300 UNIT/3 ML VIAL SQ SCH ×4 (06:39→21:58)
[2017-07-10] MEDS: methylPREDNISolone SOD SUCCI 125 MG/2 ML VIAL IV SCH ×2 (06:39→12:29)
[2017-07-10] MEDS: CYCLOBENZAPRINE 10 MG TAB PO SCH ×2 (07:45→20:21)
[2017-07-10] MEDS: LORazepam 2 MG/ML INJ IV PRN ×5 (07:46→22:36)
[2017-07-10] MEDS: METOPROLOL TARTRATE 12.5 MG TAB PO SCH ×2 (07:46→20:21)
[2017-07-10] MEDS: HEPARIN SODIUM,PORCINE 5,000 UNIT/ML 1 ML VIAL SQ SCH ×2 (07:46→16:18)
[2017-07-10] MEDS: ASPIRIN 81 MG PO SCH (07:46)
[2017-07-10] MEDS: FORMOTEROL FUMARATE 20 MCG/2 ML NEBU INHALATION SCH ×2 (08:37→18:52)
[2017-07-10] MEDS: IPRATROPIUM-ALBUTEROL 3 ML NEB INHALATION PRN ×4 (08:37→18:52)
[2017-07-10] MEDS: BUDESONIDE 0.5 MG/2 ML NEBU INHALATION SCH ×2 (08:38→18:52)
--- NOTE | 2017-07-10 10:54 | P.PN ---
Subjective Progress Note Date: 07/10/17 A very pleasant 62-year-old female patient was Hospital as for worsening shortness of breath. The patient is known to have COPD and she is a chronic smoker witnessed to smoke around 1 pack of cigarettes on a daily basis. Her breathing has been progressively getting worse and she had seen Dr. Salmeron on outpatient basis with treated this patient without any improvement. Subsequently the patient came into the emergency department yesterday because of significant respiratory distress and impending respiratory failure. At that point the patient was placed on a BiPAP and currently still on a BiPAP for respiratory support at a pressure of 10/5 cm of water and she is tolerating it well. She remains actively bronchospastic and wheezy. Her chest x-ray shows hyperinflation and enlarged lung volumes without any acute pulmonary infiltration or pneumonias. No signs of any failure. No change in mental status. No pleurisy. No hemoptysis. No angina. No swelling lower extremities. This is the patient's first hospitalization for an acute COPD exacerbation. The patient has not been utilizing oxygen or any form of regular inhalers at home. She has a nebulizer at home. No aspiration. No travel history. No recurrent pneumonias. On 07/09/2017 the patient is feeling less short of breath compared to yesterday. The patient was taken off the BiPAP this morning. She is able to speak full sentences and she is less bronchospastic and wheezy compared to yesterday. No angina. No nausea or vomiting. No abdominal pain. No swelling lower extremities. She has some degree of anxiety for which she is on Xanax. She seems to be, that not to smoke anymore. I still have this patient a combination of DuoNeb nebulized treatments around the clock, Pulmicort Respules , Perforomist twice a day, empiric antibiotic coverage with Levaquin and IV Solu -Medrol. On 07/10/2017 the patient is slowly improving. She is still off the BiPAP. No cough or sputum production. Still bronchospastic and wheezy although less compared to yesterday. She is supplementing her diet with ensure. She is tolerating her diet. No nausea or vomiting. No chest pain. No other new complaints and she is a bit weak yet she is in good spirits and she wants to improve and recover from her acute COPD exacerbation. Objective - Vital Signs Vital signs: Vital Signs Temp 97.6 F 07/10/17 00:00 Pulse 100 07/10/17 08:54 Resp 20 07/10/17 08:00 BP 155/93 07/10/17 08:00 Pulse Ox 98 07/10/17 08:40 Intake & Output 07/09/17 07/10/17 07/10/17 18:59 06:59 18:59 Intake Total 260 240 Output Total 800 300 Balance 260 -560 -300 Weight 41.5 kg Intake: Oral 260 240 Output: Urine 800 300 Other: Voiding Method Toilet Bedside Commode Bedside Commode - Exam The patient appeared well nourished and normally developed. Vital signs as documented. Head exam is unremarkable. No scleral icterus or corneal arcus noted. Neck is without jugular venous distension, thyromegaly, or carotid bruits. Carotid upstrokes are brisk bilaterally. Lungs are diminished breath sounds bilaterally along with prolongation of expiratory phase of breathing and scattered expiratory wheezes heard throughout the lung dorm[place]. Overall lung sounds are improved compared to yesterday. There is improved air entry bilaterally.. Cardiac exam reveals the PMI to be normally sized and situated. Rhythm is regular. First and second heart sounds normal. No murmurs, rubs or gallops. Abdominal exam reveals normal bowel sounds, no masses, no organomegaly and no aortic enlargement. Extremities are nonedematous and both femoral and pedal pulses are normal.Examination of the skin revealed no evidence of significant rashes, suspicious appearing nevi or other concerning lesions. Neurologically the patient is awake and alert and following commands and answering questions appropriately. Psychiatry shows some increased level of anxiety. - Labs CBC & Chem 7: 07/09/17 05:39 07/09/17 17:13 Labs: Abnormal Lab Results - Last 24 Hours (Table) 07/09/17 07/09/17 07/09/17 Range/Units 11:42 16:40 20:39 POC Glucose (mg/dL) 155 H 164 H 177 H (75-99) mg/dL 07/10/17 Range/Units 06:05 POC Glucose (mg/dL) 145 H (75-99) mg/dL Microbiology - Last 24 Hours (Table) 07/07/17 11:09 Blood Culture - Preliminary Blood No Growth after 48 hours Assessment and Plan Plan: Impression 1 acute COPD exacerbation with secondary shortness of breath. The patient was in significant respiratory distress at time of admission currently is on BiPAP for respiratory support 2 acute BiPAP dependent respiratory failure secondary to COPD exacerbation 3 chronic smoker 4 chronic neck pain 5 hypertension 6 remote history of TIA Plan Continue same treatment. Arrange home O2. Arrange home nebulizer. We'll may start tapering steroids as of tomorrow. Dietary supplements. We'll follow.
[2017-07-10 12:03] LABS: Glucose,Whole Blood 186 mg/dL (75-99)
--- NOTE | 2017-07-10 13:50 | P.PN ---
Subjective Patient is a 60-year-old female with known history of COPD and hypertension and actually good ejection came to the hospital with complaints of shortness of breath which is getting worse for the past 4 days. Patient states it got so bad today that she had called EMS. EMS stated that her pulse ox was in the 70s on room air and 91 on BiPAP in the ambulance. Patient states she's had no fever or chills she's had no chest pain or palpitations. Patient states she has been coughing but hasn't been coughing a lot up. Patient denies any abdominal pain patient denies any nausea vomiting diarrhea. Patient denies any lightheadedness or dizziness. Denied any recent illnesses. Patient denied any prior pulmonary follow-up. No history of intubation. On 07/08/2017 Patient is still having symptoms and short of breath and currently on BiPAP. Patient is still wheezing and diminished basilar bilateral air entry. No fever no chills. Patient was seen by pulmonary. No complaints of chest pain. No nausea vomiting or abdominal pain. All other review of systems negative except the above 07/09/2017 Patient did improve symptomatically. Currently saturating well another cannula. BiPAP daily at bedtime as needed. Clinically improving. Now, as her chest pain no worsening short of breath. No nausea vomiting or abdominal pain. All other review of systems negative except the above. 07/10/2017 when I evaluated the patient patient is in respiratory distress without oxygen. Patient may end up needing onset at home. Constitutional: Denied any fatigue denied any fever. Cardio vascular: denied any chest pain, palpitations Gastrointestinal denied any nausea vomiting Pulmonary: patient discharged of breath without oxygen Neurologic denied any new focal deficits Objective - Vital Signs Vital signs: Vital Signs Temp 97.9 F 07/10/17 11:28 Pulse 100 07/10/17 11:56 Resp 20 07/10/17 11:28 BP 148/90 07/10/17 11:28 Pulse Ox 96 07/10/17 11:28 Intake & Output 07/09/17 07/10/17 07/10/17 18:59 06:59 18:59 Intake Total 260 240 720 Output Total 800 300 Balance 260 -560 420 Weight 41.5 kg Intake: Oral 260 240 720 Output: Urine 800 300 Other: Voiding Method Toilet Bedside Commode Bedside Commode - Exam PHYSICAL EXAMINATION: Patient is lying in the bed comfortably, no acute distress, awake alert and oriented.. HEENT: Normocephalic. Neck is supple. Pupils reactive. Nostrils clear. Oral cavity is moist. Ears reveal no drainage. Neck reveals no JVD, carotid bruits, or thyromegaly. CHEST EXAMINATION: Trachea is central. Symmetrical expansion. Bilateral air entry improved. Expiratory wheezing present CARDIAC: Normal S1, S2 with no gallops. No murmurs ABDOMEN: Soft. Bowel sounds normal. No organomegaly. No abdominal bruits. Extremities: reveal no edema. No clubbing or cyanosis Neurologically awake, alert, oriented x3 with well-coordinated movements. No focal deficits noted Skin: No rash or skin lesions. Psychiatric: Operative. Nonsuicidal Musculoskeletal: No joint swelling or deformity. Normal range of motion. - Labs CBC & Chem 7: 07/09/17 05:39 07/09/17 17:13 Labs: Abnormal Lab Results - Last 24 Hours (Table) 07/09/17 07/09/17 07/10/17 Range/Units 16:40 20:39 06:05 POC Glucose (mg/dL) 164 H 177 H 145 H (75-99) mg/dL 07/10/17 Range/Units 11:47 POC Glucose (mg/dL) 186 H (75-99) mg/dL Microbiology - Last 24 Hours (Table) 07/07/17 11:09 Blood Culture - Preliminary Blood No Growth after 72 hours Assessment and Plan Plan: #1 acute hypercapnic respiratory failure secondary to COPD exacerbation #2 acute COPD exacerbation #3 elevated troponin level. Likely due to demand mismatch. Possible Non STEMI #4 nicotine addiction #5 history of TIA/CVA #6 DVT prophylaxis Plan: Patient will be continued on BiPAP machine daily at bedtime and O2 therapy as needed. Continue with IV steroids and duonebs. Pulmicort and perforamist was added. Added levofloxacin for empiric antibiotic coverage. Continue telemetry monitoring and serial troponin level. Being followed by pulmonary and cardiology. Patient was counseled for smoking cessation. continue the current management and further recommendations based on the clinical course.
[2017-07-10] MEDS: LEVOFLOXACIN 500 MG TAB PO SCH (16:18)
[2017-07-10 16:54] LABS: Glucose,Whole Blood 127 mg/dL (75-99)
[2017-07-10] MEDS: methylPREDNISolone SOD SUCCI 40 MG/ML 1 ML VIAL IV SCH (18:43)
[2017-07-10] MEDS: ALPRAZolam 0.5 MG TAB PO PRN (20:21)
[2017-07-10] MEDS: ATORVASTATIN 10 MG TAB PO SCH (20:21)
[2017-07-10 21:33] LABS: Glucose,Whole Blood 183 mg/dL (75-99)
[2017-07-11] MEDS: HEPARIN SODIUM,PORCINE 5,000 UNIT/ML 1 ML VIAL SQ SCH ×4 (00:22→23:28)
[2017-07-11] MEDS: methylPREDNISolone SOD SUCCI 40 MG/ML 1 ML VIAL IV SCH ×2 (00:22→08:51)
[2017-07-11] MEDS ORDERED: RX INFO: IV CONTRAST WAS GIVEN 1 EACH MISC MISCELLANE PRN (01:03)
[2017-07-11 05:56] LABS: Glucose,Whole Blood 149 mg/dL (75-99)
[2017-07-11] MEDS ORDERED: diphenhydrAMINE 50 MG/ML 1 ML VIAL IVP ONE (06:00)
[2017-07-11] MEDS ORDERED: FAMOTIDINE 20 MG/2 ML VIAL IV ONE (06:00)
[2017-07-11] MEDS ORDERED: methylPREDNISolone SOD SUCCI 125 MG/2 ML VIAL IV ONE (06:00)
[2017-07-11] MEDS: INSULIN LISPRO (humaLOG) 300 UNIT/3 ML VIAL SQ SCH ×3 (06:09→17:36)
[2017-07-11 08:28] LABS: CH 33.1; CHCM 31.9; HCT 41.9 % (34.0-46.0); HDW 2.29; MCH 32.3 pg (25.0-35.0); MCV 104.3 fL (80.0-100.0); Macrocytosis Slight; Mean Platelet Volume 7.2; RBC 4.02 m/uL (3.80-5.40); WBC 11.8 k/uL (3.8-10.6)
[2017-07-11 08:38] LABS: Anion Gap 10 mmol/L; Blood Urea Nitrogen 28 mg/dL (7-17); Calcium 9.5 mg/dL (8.4-10.2); Carbon Dioxide 31 mmol/L (22-30); Chloride 101 mmol/L (98-107); Glucose 176 mg/dL (74-99); Non-African American GFR(MDRD) >60 (>60 ml/min/1.73 sqM); Potassium 3.9 mmol/L (3.5-5.1); Sodium 142 mmol/L (137-145)
[2017-07-11] MEDS: ASPIRIN 81 MG PO SCH (08:51)
[2017-07-11] MEDS: METOPROLOL TARTRATE 12.5 MG TAB PO SCH ×2 (08:51→23:28)
[2017-07-11] MEDS: CYCLOBENZAPRINE 10 MG TAB PO SCH ×2 (08:52→23:28)
--- NOTE | 2017-07-11 09:05 | CT ---
EXAMINATION TYPE: CT angio head neck DATE OF EXAM: 07/11/2017 HISTORY: Fall, shortness of breath COMPARISON: NONE CT DLP: 234.5 mGycm. Automated Exposure Control for Dose Reduction was Utilized. TECHNIQUE: CTA scan of the neck is performed with IV Contrast, patient injected with 65 mL of Omnipa que 350, axial images are obtained, coronal and sagittal reformatted images are reviewed. Three-D rec onstructed images are created on an independent workstation and reviewed. FINDINGS: Central structures are midline. There is no evidence of hydrocephalus. No acute focal lesio n, mass effect or midline shift is seen. I do not see evidence of intracranial blood. There is an air-fluid level in the right maxillary sinus. The remainder the paranasal sinuses and mas toids are clear. There are diffuse emphysematous changes throughout the lungs. There are bullous changes in the upper lobes. Major salivary glands are normal. The parapharyngeal, oropharyngeal and laryngeal soft tissues are normal. There is normal enhancement of the thyroid. There is no significant adenopathy. Vertebral body height and alignment are maintained. Atlantoaxial relationships are normal. There is d isc space loss and mild hypertrophic spondylosis at C6-7. No definite discal protrusion is seen. There is a normal origin of the great vessels. There is no significant stenosis involving the left in ternal carotid artery. There is no significant stenosis involving the right carotid artery. The verte bral arteries are codominant. The posterior communicating artery is noted on the right. Is not clearl y visualized on the left. There is normal arborization of the middle cerebral artery. Both anterior cerebral arteries are paten t. No sizable aneurysm is seen. IMPRESSION: 1. No significant stenosis of the internal carotid arteries. 2. Normal CTA of the [place]. 3. Extensive emphysematous change involving the lungs. 4. Mild degenerative change involving the cervical spine. 5. Evidence of acute right maxillary sinus mucosal disease.
[2017-07-11] MEDS: FORMOTEROL FUMARATE 20 MCG/2 ML NEBU INHALATION SCH ×2 (09:51→19:23)
[2017-07-11] MEDS: BUDESONIDE 0.5 MG/2 ML NEBU INHALATION SCH ×2 (09:51→19:23)
[2017-07-11] MEDS: IPRATROPIUM-ALBUTEROL 3 ML NEB INHALATION PRN ×3 (10:24→19:23)
[2017-07-11] MEDS: HYDROcodone/APAP 5-325MG 1 EACH TAB PO PRN ×2 (10:31→15:19)
[2017-07-11] MEDS ORDERED: QUEtiapine 25 MG TAB PO PRN (11:27)
[2017-07-11 11:42] LABS: Glucose,Whole Blood 150 mg/dL (75-99)
--- NOTE | 2017-07-11 12:11 | XR ---
EXAMINATION TYPE: XR chest 1V portable DATE OF EXAM: 07/11/2017 HISTORY: shortness of breath. REFERENCE: Previous study dated 07/07/2017. FINDINGS: The lungs are markedly overinflated but clear. Pleural space are clear. The heart is not en larged. IMPRESSION: COPD.
[2017-07-11] MEDS: SODIUM CHLORIDE 0.9% 1,000 ML IV SCH (12:12)
[2017-07-11 12:16] LABS: ABG HCO3 33 mmol/L (21-25); ABG PCO2 40 mmHg (35-45); ABG PH 7.53 (7.35-7.45); ABG PO2 67 mmHg (83-108); ABG TCO2 34 mmol/L (19-24)
[2017-07-11 12:46] LABS: Glucose,Whole Blood 159 mg/dL (75-99)
[2017-07-11] MEDS: HALOPERIDOL LACTATE 5 MG/ML 1 ML VIAL IVP PRN ×3 (13:46→17:39)
--- NOTE | 2017-07-11 14:49 | P.PN ---
Subjective Patient is a 60-year-old female with known history of COPD and hypertension and actually good ejection came to the hospital with complaints of shortness of breath which is getting worse for the past 4 days. Patient states it got so bad today that she had called EMS. EMS stated that her pulse ox was in the 70s on room air and 91 on BiPAP in the ambulance. Patient states she's had no fever or chills she's had no chest pain or palpitations. Patient states she has been coughing but hasn't been coughing a lot up. Patient denies any abdominal pain patient denies any nausea vomiting diarrhea. Patient denies any lightheadedness or dizziness. Denied any recent illnesses. Patient denied any prior pulmonary follow-up. No history of intubation. On 07/08/2017 Patient is still having symptoms and short of breath and currently on BiPAP. Patient is still wheezing and diminished basilar bilateral air entry. No fever no chills. Patient was seen by pulmonary. No complaints of chest pain. No nausea vomiting or abdominal pain. All other review of systems negative except the above 07/09/2017 Patient did improve symptomatically. Currently saturating well another cannula. BiPAP daily at bedtime as needed. Clinically improving. Now, as her chest pain no worsening short of breath. No nausea vomiting or abdominal pain. All other review of systems negative except the above. 07/10/2017 when I evaluated the patient patient is in respiratory distress without oxygen. Patient may end up needing onset at home. 07/11 2017 Patient is more confused yesterday did have a fall patient is still retaining CO2 rest for discharge did not improve patient is being transferred to ICU for BiPAP unable to often review of systems although patient is arousable but they wake able to protect the airway and is answering questions still short of breath Objective - Vital Signs Vital signs: Vital Signs Temp 97.9 F 07/11/17 11:42 Pulse 95 07/11/17 11:42 Resp 20 07/11/17 12:00 BP 168/119 07/11/17 11:42 Pulse Ox 95 07/11/17 11:42 Intake & Output 07/10/17 07/11/17 07/11/17 18:59 06:59 18:59 Intake Total 960 Output Total 450 350 400 Balance 510 -350 -400 Weight 41.3 kg Intake: Oral 960 Output: Urine 450 350 400 Other: Voiding Method Bedside Commode Bedside Commode Bedside Commode # Bowel Movements 0 - Exam PHYSICAL EXAMINATION: Patient is drowsy HEENT: Normocephalic. Neck is supple. Pupils reactive. Nostrils clear. Oral cavity is moist. Ears reveal no drainage. Neck reveals no JVD, carotid bruits, or thyromegaly. CHEST EXAMINATION: Trachea is central. Symmetrical expansion. Bilateral air entry improved. Expiratory wheezing present CARDIAC: Normal S1, S2 with no gallops. No murmurs ABDOMEN: Soft. Bowel sounds normal. No organomegaly. No abdominal bruits. Extremities: reveal no edema. No clubbing or cyanosis Neurologically awake, alert, oriented x3 with well-coordinated movements. No focal deficits noted Skin: No rash or skin lesions. Psychiatric: Operative. Nonsuicidal Musculoskeletal: No joint swelling or deformity. Normal range of motion. - Labs CBC & Chem 7: 07/11/17 07:54 07/11/17 07:54 Labs: Abnormal Lab Results - Last 24 Hours (Table) 07/10/17 07/10/17 07/11/17 Range/Units 16:49 21:32 05:54 WBC (3.8-10.6) k/uL MCV (80.0-100.0) fL ABG pH (7.35-7.45) ABG pO2 (83-108) mmHg ABG HCO3 (21-25) mmol/L ABG Total CO2 (19-24) mmol/L Carbon Dioxide (22-30) mmol/L BUN (7-17) mg/dL Glucose (74-99) mg/dL POC Glucose (mg/dL) 127 H 183 H 149 H (75-99) mg/dL 07/11/17 07/11/17 07/11/17 Range/Units 07:54 07:54 11:33 WBC 11.8 H (3.8-10.6) k/uL MCV 104.3 H (80.0-100.0) fL ABG pH (7.35-7.45) ABG pO2 (83-108) mmHg ABG HCO3 (21-25) mmol/L ABG Total CO2 (19-24) mmol/L Carbon Dioxide 31 H (22-30) mmol/L BUN 28 H (7-17) mg/dL Glucose 176 H (74-99) mg/dL POC Glucose (mg/dL) 150 H (75-99) mg/dL 07/11/17 07/11/17 Range/Units 12:00 12:44 WBC (3.8-10.6) k/uL MCV (80.0-100.0) fL ABG pH 7.53 H (7.35-7.45) ABG pO2 67 L (83-108) mmHg ABG HCO3 33 H (21-25) mmol/L ABG Total CO2 34 H (19-24) mmol/L Carbon Dioxide (22-30) mmol/L BUN (7-17) mg/dL Glucose (74-99) mg/dL POC Glucose (mg/dL) 159 H (75-99) mg/dL Microbiology - Last 24 Hours (Table) 07/07/17 11:09 Blood Culture - Preliminary Blood No Growth after 96 hours Assessment and Plan Plan: #1 acute hypercapnic respiratory failure secondary to COPD exacerbation, COPD 2 retention leading to metabolic and toxic encephalopathy because of which patient is being transferred to ICU for BiPAP therapy #2 acute COPD exacerbation #3 elevated troponin level. Likely due to demand mismatch. Possible Non STEMI #4 nicotine addiction #5 history of TIA/CVA #6 DVT prophylaxis Plan: Patient will be transferred to ICU for BiPAP therapy continue systemic strides inhalational treatments. Patient was started on IV normal saline patient is hypotensive tachycardic secondary to severe hypoxemia. CAT scan of the chest was reviewed
--- NOTE | 2017-07-11 15:42 | P.PN ---
Subjective Progress Note Date: 07/11/17 A very pleasant 62-year-old female patient was Hospital as for worsening shortness of breath. The patient is known to have COPD and she is a chronic smoker witnessed to smoke around 1 pack of cigarettes on a daily basis. Her breathing has been progressively getting worse and she had seen Dr. Salmeron on outpatient basis with treated this patient without any improvement. Subsequently the patient came into the emergency department yesterday because of significant respiratory distress and impending respiratory failure. At that point the patient was placed on a BiPAP and currently still on a BiPAP for respiratory support at a pressure of 10/5 cm of water and she is tolerating it well. She remains actively bronchospastic and wheezy. Her chest x-ray shows hyperinflation and enlarged lung volumes without any acute pulmonary infiltration or pneumonias. No signs of any failure. No change in mental status. No pleurisy. No hemoptysis. No angina. No swelling lower extremities. This is the patient's first hospitalization for an acute COPD exacerbation. The patient has not been utilizing oxygen or any form of regular inhalers at home. She has a nebulizer at home. No aspiration. No travel history. No recurrent pneumonias. On 07/09/2017 the patient is feeling less short of breath compared to yesterday. The patient was taken off the BiPAP this morning. She is able to speak full sentences and she is less bronchospastic and wheezy compared to yesterday. No angina. No nausea or vomiting. No abdominal pain. No swelling lower extremities. She has some degree of anxiety for which she is on Xanax. She seems to be, that not to smoke anymore. I still have this patient a combination of DuoNeb nebulized treatments around the clock, Pulmicort Respules , Perforomist twice a day, empiric antibiotic coverage with Levaquin and IV Solu -Medrol. On 07/10/2017 the patient is slowly improving. She is still off the BiPAP. No cough or sputum production. Still bronchospastic and wheezy although less compared to yesterday. She is supplementing her diet with ensure. She is tolerating her diet. No nausea or vomiting. No chest pain. No other new complaints and she is a bit weak yet she is in good spirits and she wants to improve and recover from her acute COPD exacerbation. On 07/11/2017, the patient is significantly worse. After my evaluation yesterday this morning the patient started getting progressively more weak and lethargic and on and off was having episodes of confusion. This morning her condition is even worse. She is very lethargic still. She short of breath. Tachypneic even at rest. Having difficulty breathing and using some accessory muscles of breathing. Suspected CO2 narcosis. Her blood gases obtained that showed an acute alkalosis with a pH of 7.53 and a pCO2 of 40 and pO2 of 67 and this was done and FiO2 of 36%. She had a congested cough that she was unable to become much sputum. Still bronchospastic and wheezy. Very weak. Arousable yet her sensorium is quite cloudy at this point. She is moving all 4 extremities. No focal neurological deficits. She is afebrile. She is slightly tachycardic. A repeat stat chest x-ray was obtained and the patient was moved to the intensive care unit for further monitoring and BiPAP treatment. The patient had a CAT scan of the head that showed no acute abnormalities. She is quite weak and cachectic. She has a very limited reserve. Atelectatic discussion with the family and explained to them the ongoing issues with COPD exacerbation and impending respiratory failure. Objective - Vital Signs Vital signs: Vital Signs Temp 98.2 F 07/11/17 13:00 Pulse 103 H 07/11/17 15:24 Resp 26 H 07/11/17 14:00 BP 132/89 07/11/17 14:00 Pulse Ox 100 07/11/17 14:00 Intake & Output 07/10/17 07/11/17 07/11/17 18:59 06:59 18:59 Intake Total 960 Output Total 450 350 400 Balance 510 -350 -400 Weight 41.3 kg Intake: Oral 960 Output: Urine 450 350 400 Other: Voiding Method Bedside Commode Bedside Commode Bedside Commode # Bowel Movements 0 - Exam The patient appeared cachectic and weak and very lethargic with diminished level of consciousness yet arousable with stimulation. She is more short of breath than usual and she is using some excessive muscle breathing. She is quite cachectic with a BMI of 15.6. Vital signs as documented. Head exam is unremarkable. No scleral icterus or corneal arcus noted. Neck is without jugular venous distension, thyromegaly, or carotid bruits. Carotid upstrokes are brisk bilaterally. Lungs are diminished breath sounds bilaterally along with prolongation of expiratory phase of breathing and scattered expiratory wheezes heard throughout the lung dorman. Overall lung sounds are improved compared to yesterday. There is improved air entry bilaterally.. Cardiac exam reveals the PMI to be normally sized and situated. Rhythm is regular. First and second heart sounds normal. No murmurs, rubs or gallops. Abdominal exam reveals normal bowel sounds, no masses, no organomegaly and no aortic enlargement. Extremities are nonedematous and both femoral and pedal pulses are normal.Examination of the skin revealed no evidence of significant rashes, suspicious appearing nevi or other concerning lesions. Neurologically the patient is awake and she would occasionally initiate a spontaneous conversation. If left unstimulated she would go back to sleep. Neurologic exam is nonfocal. No cranial nerve deficits.. Psychiatry shows increased level of anxiety. - Labs CBC & Chem 7: 07/11/17 07:54 07/11/17 07:54 Labs: Abnormal Lab Results - Last 24 Hours (Table) 07/10/17 07/10/17 07/11/17 Range/Units 16:49 21:32 05:54 WBC (3.8-10.6) k/uL MCV (80.0-100.0) fL ABG pH (7.35-7.45) ABG pO2 (83-108) mmHg ABG HCO3 (21-25) mmol/L ABG Total CO2 (19-24) mmol/L Carbon Dioxide (22-30) mmol/L BUN (7-17) mg/dL Glucose (74-99) mg/dL POC Glucose (mg/dL) 127 H 183 H 149 H (75-99) mg/dL 07/11/17 07/11/17 07/11/17 Range/Units 07:54 07:54 11:33 WBC 11.8 H (3.8-10.6) k/uL MCV 104.3 H (80.0-100.0) fL ABG pH (7.35-7.45) ABG pO2 (83-108) mmHg ABG HCO3 (21-25) mmol/L ABG Total CO2 (19-24) mmol/L Carbon Dioxide 31 H (22-30) mmol/L BUN 28 H (7-17) mg/dL Glucose 176 H (74-99) mg/dL POC Glucose (mg/dL) 150 H (75-99) mg/dL 07/11/17 07/11/17 Range/Units 12:00 12:44 WBC (3.8-10.6) k/uL MCV (80.0-100.0) fL ABG pH 7.53 H (7.35-7.45) ABG pO2 67 L (83-108) mmHg ABG HCO3 33 H (21-25) mmol/L ABG Total CO2 34 H (19-24) mmol/L Carbon Dioxide (22-30) mmol/L BUN (7-17) mg/dL Glucose (74-99) mg/dL POC Glucose (mg/dL) 159 H (75-99) mg/dL Microbiology - Last 24 Hours (Table) 07/07/17 11:09 Blood Culture - Preliminary Blood No Growth after 96 hours Assessment and Plan Plan: Impression 1 acute COPD exacerbation with secondary shortness of breath. After initial improvement. The patient showed worsening in shortness of breath, worsening tachypnea, and she is showing impending signs of respiratory failure. The blood gases was done on emergent basis and there is no signs of any CO2 narcosis. The patient will benefit from BiPAP therapy. She is very lethargic. Weak cough. Unable to bring up much sputum. Suspect an underlying mucous plugging. A repeat chest x-ray will be also obtained. Patient is very cachectic with a BMI 15.6. She has very poor reserve. Unfortunately her condition decompensated and she'll be moved to the intensive care unit for further monitoring. 2 acute BiPAP dependent respiratory failure secondary to COPD exacerbation 3 chronic smoker 4 chronic neck pain 5 hypertension 6 remote history of TIA 7 cachexia with a BMI of 15.6 Plan Monitor the patient to the intensive care unit. Monitor mental status. Provide this patient with Haldol for some anxiety and agitation and delirium. Avoid benzodiazepine. Continue bronchodilators. Continue with the oral steroids. Patient is currently on 60 mg of prednisone. Blood gases was noted. BiPAP will be initiated back at a pressure of 12/5 cm of water with an FiO2 will be titrated to maintain a saturation above 90%. Keep her nothing by mouth for now. Repeat chest x-ray. Continue the supportive care. Increase chance of this patient failing and requiring intubation mechanical ventilation this will be closely monitored in the ICU. Poor baseline performance and functional status. Prognosis remains poor.
[2017-07-11] MEDS ORDERED: NALOXONE 0.4 MG/ML 1 ML VIAL IV PRN (16:27)
[2017-07-11] MEDS: LEVOFLOXACIN 500 MG TAB PO SCH (17:08)
[2017-07-11 17:24] LABS: Glucose,Whole Blood 134 mg/dL (75-99)
[2017-07-11] MEDS: NICOTINE 21MG/24HR PATCH TRANSDERM SCH (18:08)
[2017-07-11] MEDS: LORazepam 2 MG/ML INJ IV PRN (19:10)
[2017-07-11 22:41] LABS: Glucose,Whole Blood 113 mg/dL (75-99)
[2017-07-11] MEDS: ATORVASTATIN 10 MG TAB PO SCH (23:28)
[2017-07-11] MEDS: ALPRAZolam 0.5 MG TAB PO PRN (23:32)
[2017-07-12] MEDS: SODIUM CHLORIDE 0.9% 1,000 ML IV SCH ×4 (00:50→19:30)
[2017-07-12] MEDS: INSULIN LISPRO (humaLOG) 300 UNIT/3 ML VIAL SQ SCH ×5 (01:47→21:07)
[2017-07-12] MEDS: HALOPERIDOL LACTATE 5 MG/ML 1 ML VIAL IVP PRN (03:45)
[2017-07-12] MEDS: LORazepam 2 MG/ML INJ IV PRN (04:14)
[2017-07-12 04:46] LABS: Basophils % (A) 0 %; Eosinophils % (A) 0 %; HCT 36.9 % (34.0-46.0); HDW 2.34; HGB 11.8 gm/dL (11.4-16.0); Luc # (Auto) 0.22; Luc % (Auto) 2; Lymphocytes # (A) 0.9 k/uL (1.0-4.8); Lymphocytes % (A) 8 %; MCHC 31.8 g/dL (31.0-37.0); MCV 100.4 fL (80.0-100.0); Mean Platelet Volume 6.8; Monocytes # (A) 0.7 k/uL (0-1.0); Monocytes % (A) 7 %; Neutrophils # (A) 8.9 k/uL (1.3-7.7); Neutrophils % (A) 83 %; RBC 3.68 m/uL (3.80-5.40); WBC 10.8 k/uL (3.8-10.6); WBC (Perox) 10.76
[2017-07-12 04:55] LABS: Anion Gap 7 mmol/L; Blood Urea Nitrogen 21 mg/dL (7-17); Calcium 9.1 mg/dL (8.4-10.2); Carbon Dioxide 30 mmol/L (22-30); Chloride 103 mmol/L (98-107); Glucose 101 mg/dL (74-99); Magnesium 1.7 mg/dL (1.6-2.3); Non-African American GFR(MDRD) >60 (>60 ml/min/1.73 sqM); Phosphorus 3.3 mg/dL (2.5-4.5); Sodium 140 mmol/L (137-145)
[2017-07-12] MEDS: IPRATROPIUM-ALBUTEROL 3 ML NEB INHALATION PRN ×2 (07:10→11:13)
[2017-07-12] MEDS: BUDESONIDE 0.5 MG/2 ML NEBU INHALATION SCH ×2 (07:10→19:01)
[2017-07-12] MEDS: FORMOTEROL FUMARATE 20 MCG/2 ML NEBU INHALATION SCH (07:10)
[2017-07-12] MEDS ORDERED: Magnesium Replacement Protocol 1 EACH MISC MISCELLANE PRN (07:18)
[2017-07-12 07:26] LABS: Glucose,Whole Blood 100 mg/dL (75-99)
--- NOTE | 2017-07-12 07:36 | XR ---
EXAMINATION TYPE: XR chest 1V DATE OF EXAM: 07/12/2017 COMPARISON: 07/11/2017 HISTORY: 62-year-old female COPD, follow-up TECHNIQUE: Single frontal view of the chest is obtained. FINDINGS: Heart is normal size. Aorta and pulmonary vasculature are within normal limits. Hyperinflation with f lattening of the hemidiaphragms. No consolidation or pleural effusion seen. There are flocculent calc ifications within the proximal right humerus. IMPRESSION: Stable COPD. No acute process seen. Note probable chondroid lesion in the proximal right humerus. Thi s probably represents an enchondroma. In the future, if the patient ever develops focal pain here, th e area should be further evaluated.
[2017-07-12] MEDS: MAGNESIUM SULFATE-D5W PMX 1 GM in DEXTROSE/WATER 1 100ML.BAG IVPB SCH ×2 (08:07→09:50)
[2017-07-12] MEDS: HEPARIN SODIUM,PORCINE 5,000 UNIT/ML 1 ML VIAL SQ SCH ×2 (08:07→16:17)
[2017-07-12] MEDS ORDERED: QUEtiapine 25 MG TAB PO SCH (09:00)
[2017-07-12] MEDS ORDERED: predniSONE 20 MG TAB PO SCH (09:00)
[2017-07-12] MEDS: ASPIRIN 81 MG PO SCH (09:50)
[2017-07-12] MEDS: ALPRAZolam 0.5 MG TAB PO PRN (09:51)
[2017-07-12] MEDS: NICOTINE 21MG/24HR PATCH TRANSDERM SCH (09:53)
[2017-07-12] MEDS: predniSONE 20 MG TAB PO SCH (09:53)
[2017-07-12] MEDS: METOPROLOL TARTRATE 12.5 MG TAB PO SCH (09:54)
[2017-07-12] MEDS: CYCLOBENZAPRINE 10 MG TAB PO SCH ×2 (09:54→21:06)
[2017-07-12 10:12] VITALS: BMI 15.0
[2017-07-12] MEDS: PANTOPRAZOLE 40 MG/10 ML VIAL IV SCH (10:20)
[2017-07-12] MEDS: CEFUROXIME 250 MG TAB PO SCH ×2 (10:20→21:06)
[2017-07-12 12:21] LABS: Glucose,Whole Blood 176 mg/dL (75-99)
--- NOTE | 2017-07-12 13:10 | P.PN ---
Subjective Progress Note Date: 07/12/17 Principal diagnosis: Acute hypoxic respiratory failure secondary to COPD exacerbation A very pleasant 62-year-old female patient was Hospital as for worsening shortness of breath. The patient is known to have COPD and she is a chronic smoker witnessed to smoke around 1 pack of cigarettes on a daily basis. Her breathing has been progressively getting worse and she had seen Dr. Salmeron on outpatient basis with treated this patient without any improvement. Subsequently the patient came into the emergency department yesterday because of significant respiratory distress and impending respiratory failure. At that point the patient was placed on a BiPAP and currently still on a BiPAP for respiratory support at a pressure of 10/5 cm of water and she is tolerating it well. She remains actively bronchospastic and wheezy. Her chest x-ray shows hyperinflation and enlarged lung volumes without any acute pulmonary infiltration or pneumonias. No signs of any failure. No change in mental status. No pleurisy. No hemoptysis. No angina. No swelling lower extremities. This is the patient's first hospitalization for an acute COPD exacerbation. The patient has not been utilizing oxygen or any form of regular inhalers at home. She has a nebulizer at home. No aspiration. No travel history. No recurrent pneumonias. On 07/09/2017 the patient is feeling less short of breath compared to yesterday. The patient was taken off the BiPAP this morning. She is able to speak full sentences and she is less bronchospastic and wheezy compared to yesterday. No angina. No nausea or vomiting. No abdominal pain. No swelling lower extremities. She has some degree of anxiety for which she is on Xanax. She seems to be, that not to smoke anymore. I still have this patient a combination of DuoNeb nebulized treatments around the clock, Pulmicort Respules , Perforomist twice a day, empiric antibiotic coverage with Levaquin and IV Solu -Medrol. On 07/10/2017 the patient is slowly improving. She is still off the BiPAP. No cough or sputum production. Still bronchospastic and wheezy although less compared to yesterday. She is supplementing her diet with ensure. She is tolerating her diet. No nausea or vomiting. No chest pain. No other new complaints and she is a bit weak yet she is in good spirits and she wants to improve and recover from her acute COPD exacerbation. On 07/11/2017, the patient is significantly worse. After my evaluation yesterday this morning the patient started getting progressively more weak and lethargic and on and off was having episodes of confusion. This morning her condition is even worse. She is very lethargic still. She short of breath. Tachypneic even at rest. Having difficulty breathing and using some accessory muscles of breathing. Suspected CO2 narcosis. Her blood gases obtained that showed an acute alkalosis with a pH of 7.53 and a pCO2 of 40 and pO2 of 67 and this was done and FiO2 of 36%. She had a congested cough that she was unable to become much sputum. Still bronchospastic and wheezy. Very weak. Arousable yet her sensorium is quite cloudy at this point. She is moving all 4 extremities. No focal neurological deficits. She is afebrile. She is slightly tachycardic. A repeat stat chest x-ray was obtained and the patient was moved to the intensive care unit for further monitoring and BiPAP treatment. The patient had a CAT scan of the head that showed no acute abnormalities. She is quite weak and cachectic. She has a very limited reserve. Atelectatic discussion with the family and explained to them the ongoing issues with COPD exacerbation and impending respiratory failure. Reevaluated on 07/12/2017, patient seems to be alert oriented, but slightly anxious. She remains on nasal cannula, but she is tachycardic, and hypertensive. Urine output is marginal, her IV fluid was increased, ABG from admission was reviewed. Patient remains on multiple medications for anxiety, today I added Seroquel. This will be 25 mg twice a day. I discontinued her Haldol, kept her on Xanax, chest x-ray was reviewed and it showed mostly evidence of COPD. No evidence of infiltrate. Family is at bedside, and I discussed her condition with her and her son, and I plan to keep her in the ICU because of her anxiety and intermittent episodes of confusion. Objective - Vital Signs Vital signs: Vital Signs Temp 98.8 F 07/12/17 12:00 Pulse 111 H 07/12/17 12:00 Resp 64 H 07/12/17 12:00 BP 168/109 07/12/17 12:00 Pulse Ox 94 L 07/12/17 12:00 Intake & Output 07/11/17 07/12/17 07/12/17 18:59 06:59 18:59 Intake Total 375 1150 800 Output Total 955 357 285 Balance -580 793 515 Weight 39.6 kg 39.6 kg Intake: IV 375 900 600 Sodium Chloride 0.9% 1, 375 900 600 000 ml @ 125 mls/hr IV . Q8H MORGAN Rx#:[id number] Intake, IV Titration 200 Amount Magnesium Sulfate-D5w Pmx 200 1 gm In Dextrose/Water 1 100ml.bag @ 100 mls/hr IVPB Q1H MORGAN Rx#: [id number] Oral 250 Output: Urine 955 357 285 Other: Voiding Method Indwelling Catheter Indwelling Catheter Indwelling Catheter # Bowel Movements 0 0 - Exam Physical Exam: Revealed a cachectic and frail looking female, in no form of respiratory distress. BMI is 15.6. HEENT: PERRLA, EOMI, head is atraumatic and normocephalic. [Neck is supple.] [ No neck masses.] [No thyromegaly.] [No JVD.] Chest: [Diminished breath sound bilaterally, no crackles, no rhonchi, no wheezes.] Cardiac Exam: [Normal S1 and S2, no S3 gallop, no murmur.] Abdomen: [Soft, nontender, no megaly, no rebound, no guarding, normal bowel sounds.] Extremities: [No clubbing, no edema, no cyanosis.] Neurological Exam: [No focal neurologic deficit.] Psychiatric: Increased level of anxiety, looks anxious, but appropriate mental status examination. Skin: No rashes. No ulceration. Lymphatics: No lymphadenopathy was appreciated. - Labs CBC & Chem 7: 07/12/17 04:07 07/12/17 04:07 Labs: Abnormal Lab Results - Last 24 Hours (Table) 07/11/17 07/11/17 07/12/17 Range/Units 17:23 22:39 04:07 WBC 10.8 H (3.8-10.6) k/uL RBC 3.68 L (3.80-5.40) m/uL MCV 100.4 H (80.0-100.0) fL Neutrophils # 8.9 H (1.3-7.7) k/uL Lymphocytes # 0.9 L (1.0-4.8) k/uL BUN (7-17) mg/dL Glucose (74-99) mg/dL POC Glucose (mg/dL) 134 H 113 H (75-99) mg/dL 07/12/17 07/12/17 07/12/17 Range/Units 04:07 07:24 12:19 WBC (3.8-10.6) k/uL RBC (3.80-5.40) m/uL MCV (80.0-100.0) fL Neutrophils # (1.3-7.7) k/uL Lymphocytes # (1.0-4.8) k/uL BUN 21 H (7-17) mg/dL Glucose 101 H (74-99) mg/dL POC Glucose (mg/dL) 100 H 176 H (75-99) mg/dL Microbiology - Last 24 Hours (Table) 07/07/17 11:09 Blood Culture - Preliminary Blood No Growth after 96 hours Assessment and Plan Plan: 1 acute exacerbation of COPD and acute hypoxic respiratory failure 2 acute BiPAP dependent respiratory failure secondary to COPD exacerbation 3 chronic smoker 4 hypertension, Lopressor dose will be increased to 25 twice a day, and Norvasc 5 mg daily was added. 5 remote history of TIA 6 cachexia with a BMI of 15.6 7 chronic anxiety, requiring multiple meds, Seroquel was added. Recommendation: Discussed her condition with family at bedside, patient will remain in the ICU, required significant amount of medications to calm her down last night, and I'm afraid the same thing will happen and she could not be managed on the floor. Time with Patient: Less than 30
[2017-07-12] MEDS: amLODIPine 5 MG TAB PO SCH (13:53)
--- NOTE | 2017-07-12 14:23 | CDI ---
In responding to this query, please exercise your independent professional judgment. The [facility] Coding Staff and Clinical Documentation Specialists appreciate your assistance in clarifying documentation, maintaining compliance with coding guidelines, accurately documenting patients condition and capturing severity of illness. The fact that a question is asked does not imply that any particular answer is desired or expected. Communication forms are a method of clarifying documentation and are not made part of the Legal Health Record. Thank you in advance for your clarification. Last Revision, July 2015 Nadia Ellis [address] [place] [address] Documentation Clarification Form 2nd Request Date: 07/09/2017 11:33:00 AM From: Amanda Vargas RN, CCDS Admit Date: 07/07/2017 12:45:00 PM Patient Name: Silva Urbina Visit Number: [id number] Dr. Martinez History/Risk Factors: COPD, CVA Clinical Indicators: Labs: Albumin/ Total Protein: 3.9/7.2 Current BMI: 15.7 Insufficient energy intake: SOB, Dyspnea, BIPAP dependant Respiratory Failure Weight Loss: steady weight loss over last 5 years Loss of subcutaneous fat & Loss of muscle mass: Dietary Consult: visible muscle and fat wasting, temporal scooping, loose skin and hallow orbital region surrounding eye, protruding clavicle bone, deressed area between thumb and forefinger. 07/12 Pulmonary Progress Note: Cachexia w BMI 15.6 Treatment: Dietary Consult: Completed 07/08 Supplements: Enlive TID Lab monitoring: am daily In your professional opinion, can you please clarify if these findings signify one of the following conditions? Mild Protein-Calorie Malnutrition Moderate Protein-Calorie Malnutrition Severe Protein-Calorie Malnutrition Other condition, please specify Unable to determine Please document in your progress notes and discharge summary in order to capture severity of illness and risk of mortality. Include clinical findings that support your diagnosis. FYI: Press F11 to launch patient chart. MTDD
[2017-07-12] MEDS ORDERED: METOPROLOL TARTRATE 12.5 MG TAB PO STA (14:53)
--- NOTE | 2017-07-12 15:00 | P.PN ---
Subjective Patient is a 60-year-old female with known history of COPD and hypertension and actually good ejection came to the hospital with complaints of shortness of breath which is getting worse for the past 4 days. Patient states it got so bad today that she had called EMS. EMS stated that her pulse ox was in the 70s on room air and 91 on BiPAP in the ambulance. Patient states she's had no fever or chills she's had no chest pain or palpitations. Patient states she has been coughing but hasn't been coughing a lot up. Patient denies any abdominal pain patient denies any nausea vomiting diarrhea. Patient denies any lightheadedness or dizziness. Denied any recent illnesses. Patient denied any prior pulmonary follow-up. No history of intubation. On 07/08/2017 Patient is still having symptoms and short of breath and currently on BiPAP. Patient is still wheezing and diminished basilar bilateral air entry. No fever no chills. Patient was seen by pulmonary. No complaints of chest pain. No nausea vomiting or abdominal pain. All other review of systems negative except the above 07/09/2017 Patient did improve symptomatically. Currently saturating well another cannula. BiPAP daily at bedtime as needed. Clinically improving. Now, as her chest pain no worsening short of breath. No nausea vomiting or abdominal pain. All other review of systems negative except the above. 07/10/2017 when I evaluated the patient patient is in respiratory distress without oxygen. Patient may end up needing onset at home. 07/11 2017 Patient is more confused yesterday did have a fall patient is still retaining CO2 rest for discharge did not improve patient is being transferred to ICU for BiPAP unable to often review of systems although patient is arousable but they wake able to protect the airway and is answering questions still short of breath 07/12/2017 Patient is quite delirious apparently although patient is appropriate when I talked to the patient, patient a delirium is multifactorial including CO2 narcosis, Gautam denies opinions, barbiturates opiates, systemic steroids. Patient systemic steroids were switched to oral steroids., Xanax we are cutting it down from 2 mg 2.5 mg, discontinue [place] and patient is on seroquil agitation along with as needed Haldol. Constitutional: Denied any fatigue denied any fever. Cardio vascular: denied any chest pain, palpitations Gastrointestinal denied any nausea vomiting Pulmonary: Denied any shortness of breath cough Neurologic denied any new focal deficits Objective - Vital Signs Vital signs: Vital Signs Temp 98.8 F 07/12/17 12:00 Pulse 102 H 07/12/17 14:00 Resp 34 H 07/12/17 14:00 BP 152/93 07/12/17 14:00 Pulse Ox 96 07/12/17 14:00 Intake & Output 07/11/17 07/12/17 07/12/17 18:59 06:59 18:59 Intake Total 375 1150 1050 Output Total 955 357 585 Balance -580 793 465 Weight 39.6 kg 39.6 kg Intake: IV 375 900 850 Sodium Chloride 0.9% 1, 375 900 850 000 ml @ 125 mls/hr IV . Q8H MORGAN Rx#:[id number] Intake, IV Titration 200 Amount Magnesium Sulfate-D5w Pmx 200 1 gm In Dextrose/Water 1 100ml.bag @ 100 mls/hr IVPB Q1H MORGAN Rx#: [id number] Oral 250 Output: Urine 955 357 585 Other: Voiding Method Indwelling Catheter Indwelling Catheter Indwelling Catheter # Bowel Movements 0 0 - Exam PHYSICAL EXAMINATION: Patient is drowsy HEENT: Normocephalic. Neck is supple. Pupils reactive. Nostrils clear. Oral cavity is moist. Ears reveal no drainage. Neck reveals no JVD, carotid bruits, or thyromegaly. CHEST EXAMINATION: Trachea is central. Symmetrical expansion. Bilateral air entry improved. no significant expiratory wheezing was appreciated CARDIAC: Normal S1, S2 with no gallops. No murmurs ABDOMEN: Soft. Bowel sounds normal. No organomegaly. No abdominal bruits. Extremities: reveal no edema. No clubbing or cyanosis Neurologically awake, alert, oriented x3 with well-coordinated movements. No focal deficits noted Skin: No rash or skin lesions. Psychiatric: Operative. Nonsuicidal Musculoskeletal: No joint swelling or deformity. Normal range of motion. - Labs CBC & Chem 7: 07/12/17 04:07 07/12/17 04:07 Labs: Abnormal Lab Results - Last 24 Hours (Table) 07/11/17 07/11/17 07/12/17 Range/Units 17:23 22:39 04:07 WBC 10.8 H (3.8-10.6) k/uL RBC 3.68 L (3.80-5.40) m/uL MCV 100.4 H (80.0-100.0) fL Neutrophils # 8.9 H (1.3-7.7) k/uL Lymphocytes # 0.9 L (1.0-4.8) k/uL BUN (7-17) mg/dL Glucose (74-99) mg/dL POC Glucose (mg/dL) 134 H 113 H (75-99) mg/dL 07/12/17 07/12/17 07/12/17 Range/Units 04:07 07:24 12:19 WBC (3.8-10.6) k/uL RBC (3.80-5.40) m/uL MCV (80.0-100.0) fL Neutrophils # (1.3-7.7) k/uL Lymphocytes # (1.0-4.8) k/uL BUN 21 H (7-17) mg/dL Glucose 101 H (74-99) mg/dL POC Glucose (mg/dL) 100 H 176 H (75-99) mg/dL Microbiology - Last 24 Hours (Table) 07/07/17 11:09 Blood Culture - Preliminary Blood No Growth after 120 hours Assessment and Plan Plan: #1 acute hypercapnic respiratory failure secondary to COPD exacerbation, COPD 2 retention leading to metabolic and toxic encephalopathy because of which patient is being transferred to ICU for BiPAP therapy #2 acute COPD exacerbation #3 elevated troponin level. Likely due to demand mismatch. Possible Non STEMI #4 nicotine addiction #5 history of TIA/CVA #6 DVT prophylaxis #7 acute delirium: Multifactorial as mentioned in the interval history Plan: as mentioned above, continue with systemic strides and inhalational treatments
[2017-07-12 18:09] LABS: Glucose,Whole Blood 125 mg/dL (75-99)
[2017-07-12 20:51] LABS: Glucose,Whole Blood 137 mg/dL (75-99)
[2017-07-12] MEDS: ATORVASTATIN 10 MG TAB PO SCH (21:06)
[2017-07-12] MEDS: METOPROLOL TARTRATE 25 MG TAB PO SCH (21:07)
[2017-07-12] MEDS: QUEtiapine 50 MG TAB PO SCH (21:08)
[2017-07-13] MEDS: HEPARIN SODIUM,PORCINE 5,000 UNIT/ML 1 ML VIAL SQ SCH ×4 (01:31→23:10)
[2017-07-13] MEDS: SODIUM CHLORIDE 0.9% 1,000 ML IV SCH ×2 (04:00→23:11)
[2017-07-13 04:37] LABS: Basophils % (A) 0 %; CH 33.3; CHCM 32.7; Eosinophils # (A) 0.1 k/uL (0-0.7); Eosinophils % (A) 1 %; HCT 40.9 % (34.0-46.0); HDW 2.35; HGB 13.2 gm/dL (11.4-16.0); Luc % (Auto) 2; Lymphocytes # (A) 1.6 k/uL (1.0-4.8); Lymphocytes % (A) 16 %; MCH 33.1 pg (25.0-35.0); MCHC 32.4 g/dL (31.0-37.0); MCV 102.2 fL (80.0-100.0); Macrocytosis Slight; Mean Platelet Volume 7.2; Monocytes # (A) 0.7 k/uL (0-1.0); Monocytes % (A) 7 %; Neutrophils # (A) 7.5 k/uL (1.3-7.7); Neutrophils % (A) 75 %; WBC (Perox) 10.98
[2017-07-13 04:51] LABS: Anion Gap 8 mmol/L; Blood Urea Nitrogen 13 mg/dL (7-17); Calcium 8.5 mg/dL (8.4-10.2); Carbon Dioxide 26 mmol/L (22-30); Chloride 104 mmol/L (98-107); Glucose 92 mg/dL (74-99); Magnesium 1.7 mg/dL (1.6-2.3); Non-African American GFR(MDRD) >60 (>60 ml/min/1.73 sqM); Phosphorus 2.2 mg/dL (2.5-4.5); Potassium 3.3 mmol/L (3.5-5.1); Sodium 138 mmol/L (137-145)
[2017-07-13] MEDS ORDERED: Phosphorus Replacement Protoco 1 EACH MISC MISCELLANE PRN (04:58)
[2017-07-13] MEDS ORDERED: Potassium Replacement Protocol 1 EACH MISC MISCELLANE PRN (04:58)
[2017-07-13] MEDS: MAGNESIUM SULFATE-D5W PMX 1 GM in DEXTROSE/WATER 1 100ML.BAG IVPB SCH ×2 (05:41→07:01)
[2017-07-13] MEDS: POTASSIUM CHLORIDE ORAL LIQUID 40 MEQ/30 ML CUP NG-TUBE SCH ×2 (05:41→07:11)
[2017-07-13] MEDS ORDERED: SODIUM PHOSPH/0.9 NACL 10 MMOL in SALINE 100 100ML.BAG IVPB ONE (06:00)
[2017-07-13] MEDS ORDERED: SODIUM PHOSPHATE 10 MMOL in SODIUM CHLORIDE 0.9% 250 ML IVPB ONE (06:00)
--- NOTE | 2017-07-13 07:13 | XR ---
EXAMINATION TYPE: XR chest 1V DATE OF EXAM: 07/13/2017 COMPARISON: 07/12/2017 HISTORY: COPD exacerbation TECHNIQUE: Single frontal view of the chest is obtained. FINDINGS: There is pulmonary hyperinflation and flattening of the diaphragms with biapical lucency r elating to the known underlying COPD. Mediastinum is shifted to the left due to patient rotation. No evidence of focal consolidation, pleural effusion or pneumothorax. Blunting of the costophrenic angle s relates to degree of inspiration. Chronic rib deformities are seen of the lateral margins of the ri ght inferior ribs. Chondroid matrix right proximal humeral lesion is unchanged and may represent babs gn chondroma or prior bone infarct. IMPRESSION: 1. Unchanged sequela of COPD. No new focal consolidation. 2. Redemonstration of a chondroid matrix right humeral lesion that may represent an enchondroma or max ne infarct.
[2017-07-13 07:38] LABS: Glucose,Whole Blood 103 mg/dL (75-99)
[2017-07-13] MEDS: INSULIN LISPRO (humaLOG) 300 UNIT/3 ML VIAL SQ SCH ×4 (09:00→21:30)
[2017-07-13] MEDS: NICOTINE 21MG/24HR PATCH TRANSDERM SCH (09:01)
[2017-07-13] MEDS: CEFUROXIME 250 MG TAB PO SCH ×2 (09:02→21:30)
[2017-07-13] MEDS: PANTOPRAZOLE 40 MG/10 ML VIAL IV SCH (09:02)
[2017-07-13] MEDS: predniSONE 20 MG TAB PO SCH (09:03)
[2017-07-13] MEDS: CYCLOBENZAPRINE 10 MG TAB PO SCH ×2 (09:04→21:29)
[2017-07-13] MEDS: amLODIPine 5 MG TAB PO SCH (09:04)
[2017-07-13] MEDS: ASPIRIN 81 MG PO SCH (09:04)
[2017-07-13] MEDS: METOPROLOL TARTRATE 25 MG TAB PO SCH ×2 (09:05→21:29)
[2017-07-13] MEDS: ALPRAZolam 0.5 MG TAB PO PRN (09:09)
[2017-07-13] MEDS: BUDESONIDE 0.5 MG/2 ML NEBU INHALATION SCH ×2 (09:13→20:18)
[2017-07-13 12:55] LABS: Glucose,Whole Blood 134 mg/dL (75-99)
--- NOTE | 2017-07-13 12:56 | P.PN ---
Subjective Progress Note Date: 07/13/17 Principal diagnosis: Acute hypoxic respiratory failure secondary to COPD exacerbation A very pleasant 62-year-old female patient was Hospital as for worsening shortness of breath. The patient is known to have COPD and she is a chronic smoker witnessed to smoke around 1 pack of cigarettes on a daily basis. Her breathing has been progressively getting worse and she had seen Dr. Salmeron on outpatient basis with treated this patient without any improvement. Subsequently the patient came into the emergency department yesterday because of significant respiratory distress and impending respiratory failure. At that point the patient was placed on a BiPAP and currently still on a BiPAP for respiratory support at a pressure of 10/5 cm of water and she is tolerating it well. She remains actively bronchospastic and wheezy. Her chest x-ray shows hyperinflation and enlarged lung volumes without any acute pulmonary infiltration or pneumonias. No signs of any failure. No change in mental status. No pleurisy. No hemoptysis. No angina. No swelling lower extremities. This is the patient's first hospitalization for an acute COPD exacerbation. The patient has not been utilizing oxygen or any form of regular inhalers at home. She has a nebulizer at home. No aspiration. No travel history. No recurrent pneumonias. On 07/09/2017 the patient is feeling less short of breath compared to yesterday. The patient was taken off the BiPAP this morning. She is able to speak full sentences and she is less bronchospastic and wheezy compared to yesterday. No angina. No nausea or vomiting. No abdominal pain. No swelling lower extremities. She has some degree of anxiety for which she is on Xanax. She seems to be, that not to smoke anymore. I still have this patient a combination of DuoNeb nebulized treatments around the clock, Pulmicort Respules , Perforomist twice a day, empiric antibiotic coverage with Levaquin and IV Solu -Medrol. On 07/10/2017 the patient is slowly improving. She is still off the BiPAP. No cough or sputum production. Still bronchospastic and wheezy although less compared to yesterday. She is supplementing her diet with ensure. She is tolerating her diet. No nausea or vomiting. No chest pain. No other new complaints and she is a bit weak yet she is in good spirits and she wants to improve and recover from her acute COPD exacerbation. On 07/11/2017, the patient is significantly worse. After my evaluation yesterday this morning the patient started getting progressively more weak and lethargic and on and off was having episodes of confusion. This morning her condition is even worse. She is very lethargic still. She short of breath. Tachypneic even at rest. Having difficulty breathing and using some accessory muscles of breathing. Suspected CO2 narcosis. Her blood gases obtained that showed an acute alkalosis with a pH of 7.53 and a pCO2 of 40 and pO2 of 67 and this was done and FiO2 of 36%. She had a congested cough that she was unable to become much sputum. Still bronchospastic and wheezy. Very weak. Arousable yet her sensorium is quite cloudy at this point. She is moving all 4 extremities. No focal neurological deficits. She is afebrile. She is slightly tachycardic. A repeat stat chest x-ray was obtained and the patient was moved to the intensive care unit for further monitoring and BiPAP treatment. The patient had a CAT scan of the head that showed no acute abnormalities. She is quite weak and cachectic. She has a very limited reserve. Atelectatic discussion with the family and explained to them the ongoing issues with COPD exacerbation and impending respiratory failure. Reevaluated on 07/12/2017, patient seems to be alert oriented, but slightly anxious. She remains on nasal cannula, but she is tachycardic, and hypertensive. Urine output is marginal, her IV fluid was increased, ABG from admission was reviewed. Patient remains on multiple medications for anxiety, today I added Seroquel. This will be 25 mg twice a day. I discontinued her Haldol, kept her on Xanax, chest x-ray was reviewed and it showed mostly evidence of COPD. No evidence of infiltrate. Family is at bedside, and I discussed her condition with her and her son, and I plan to keep her in the ICU because of her anxiety and intermittent episodes of confusion. Reevaluated today on 07/13/2017, patient seems to be doing much better, breathing a lot easier, she was in the ICU during my evaluation, and she was very appropriate, not anxious, heart rate is controlled, and blood pressure is also well controlled. All her meds were reviewed, patient is on Xanax, she is also on Seroquel. That seems to be helping her anxiety and agitation quite significantly. Labs were reviewed, potassium is a bit low at 3.3 being corrected, chest x-ray was also reviewed showing mostly COPD. Objective - Vital Signs Vital signs: Vital Signs Temp 98.4 F 07/13/17 08:00 Pulse 91 07/13/17 10:00 Resp 22 07/13/17 10:00 BP 146/98 07/13/17 10:00 Pulse Ox 100 07/13/17 10:00 Intake & Output 07/12/17 07/13/17 07/13/17 18:59 06:59 18:59 Intake Total 1550 1525 400 Output Total 1210 1500 500 Balance 340 25 -100 Weight 39.6 kg 38.7 kg Intake: IV 1350 1375 250 Sodium Chloride 0.9% 1, 1350 1375 250 000 ml @ 125 mls/hr IV . Q8H [facility] Rx#:[id number] Intake, IV Titration 200 150 150 Amount Magnesium Sulfate-D5w Pmx 200 1 gm In Dextrose/Water 1 100ml.bag @ 100 mls/hr IVPB Q1H [facility] Rx#: [id number] Magnesium Sulfate-D5w Pmx 100 100 1 gm In Dextrose/Water 1 100ml.bag @ 100 mls/hr IVPB Q1H [facility] Rx#: [id number] Sodium Phosph/0.9 NaCl 10 50 50 mmol In Saline 100 100ml .bag @ 100 mls/hr IVPB ONCE ONE Rx#:[id number] Output: Urine 1210 1500 500 Other: Voiding Method Indwelling Catheter Bedpan Bedpan # Voids 1 # Bowel Movements 0 - Exam Physical Exam: Revealed a cachectic and frail looking female, in no form of respiratory distress. BMI is 15.6. HEENT: PERRLA, EOMI, head is atraumatic and normocephalic. [Neck is supple.] [ No neck masses.] [No thyromegaly.] [No JVD.] Chest: [Diminished breath sound bilaterally, no crackles, no rhonchi, no wheezes.] Cardiac Exam: [Normal S1 and S2, no S3 gallop, no murmur.] Abdomen: [Soft, nontender, no megaly, no rebound, no guarding, normal bowel sounds.] Extremities: [No clubbing, no edema, no cyanosis.] Neurological Exam: [No focal neurologic deficit.] Psychiatric: Increased level of anxiety, looks anxious, but appropriate mental status examination. Skin: No rashes. No ulceration. Lymphatics: No lymphadenopathy was appreciated. - Labs CBC & Chem 7: 07/13/17 04:24 07/13/17 04:24 Labs: Abnormal Lab Results - Last 24 Hours (Table) 07/12/17 07/12/17 07/13/17 Range/Units 18:06 20:49 04:24 MCV 102.2 H (80.0-100.0) fL Potassium (3.5-5.1) mmol/L Creatinine (0.52-1.04) mg/dL POC Glucose (mg/dL) 125 H 137 H (75-99) mg/dL Phosphorus (2.5-4.5) mg/dL 07/13/17 07/13/17 Range/Units 04:24 07:16 MCV (80.0-100.0) fL Potassium 3.3 L (3.5-5.1) mmol/L Creatinine 0.50 L (0.52-1.04) mg/dL POC Glucose (mg/dL) 103 H (75-99) mg/dL Phosphorus 2.2 L (2.5-4.5) mg/dL Microbiology - Last 24 Hours (Table) 07/07/17 11:09 Blood Culture - Preliminary Blood No Growth after 120 hours Assessment and Plan Plan: 1 acute exacerbation of COPD and acute hypoxic respiratory failure 2 acute BiPAP dependent respiratory failure secondary to COPD exacerbation 3 chronic smoker 4 hypertension, Lopressor dose will be increased to 25 twice a day, and Norvasc 5 mg daily was added. 5 remote history of TIA 6 cachexia with a BMI of 15.6 7 chronic anxiety, requiring multiple meds, Seroquel was added. Recommendation: Patient made a significant improvement over the last 24 hours, hence I plan to continue the same medications including Xanax and Seroquel, I plan to continue bronchodilators including steroids, we will arrange for the patient be transferred out of the ICU to a regular medical floor today. We'll continue to follow, possible discharge planning in the next 24 hours. Time with Patient: Less than 30
[2017-07-13] MEDS: IPRATROPIUM-ALBUTEROL 3 ML NEB INHALATION PRN ×2 (16:15→20:18)
[2017-07-13 16:50] LABS: Glucose,Whole Blood 144 mg/dL (75-99)
[2017-07-13 20:52] LABS: Glucose,Whole Blood 126 mg/dL (75-99)
[2017-07-13] MEDS: ATORVASTATIN 10 MG TAB PO SCH (21:30)
[2017-07-13] MEDS: QUEtiapine 50 MG TAB PO SCH (21:31)
--- NOTE | 2017-07-13 23:47 | P.PN ---
Subjective Progress Note Date: 07/13/17 Principal diagnosis: Acute COPD exacerbation Patient is a 60-year-old female with known history of COPD and hypertension and actually good ejection came to the hospital with complaints of shortness of breath which is getting worse for the past 4 days. Patient states it got so bad today that she had called EMS. EMS stated that her pulse ox was in the 70s on room air and 91 on BiPAP in the ambulance. Patient states she's had no fever or chills she's had no chest pain or palpitations. Patient states she has been coughing but hasn't been coughing a lot up. Patient denies any abdominal pain patient denies any nausea vomiting diarrhea. Patient denies any lightheadedness or dizziness. Denied any recent illnesses. Patient denied any prior pulmonary follow-up. No history of intubation. On 07/08/2017 Patient is still having symptoms and short of breath and currently on BiPAP. Patient is still wheezing and diminished basilar bilateral air entry. No fever no chills. Patient was seen by pulmonary. No complaints of chest pain. No nausea vomiting or abdominal pain. All other review of systems negative except the above 07/09/2017 Patient did improve symptomatically. Currently saturating well another cannula. BiPAP daily at bedtime as needed. Clinically improving. Now, as her chest pain no worsening short of breath. No nausea vomiting or abdominal pain. All other review of systems negative except the above. 07/10/2017 when I evaluated the patient patient is in respiratory distress without oxygen. Patient may end up needing onset at home. 07/11 2017 Patient is more confused yesterday did have a fall patient is still retaining CO2 rest for discharge did not improve patient is being transferred to ICU for BiPAP unable to often review of systems although patient is arousable but they wake able to protect the airway and is answering questions still short of breath 07/12/2017 Patient is quite delirious apparently although patient is appropriate when I talked to the patient, patient a delirium is multifactorial including CO2 narcosis, Gautam denies opinions, barbiturates opiates, systemic steroids. Patient systemic steroids were switched to oral steroids., Xanax we are cutting it down from 2 mg 2.5 mg, discontinue [place] and patient is on seroquil agitation along with as needed Haldol. 07/13/2017 Patient is more awake and oriented today. Delirium improved. Patient is saturating well another cannula. No chest pain. No worsening short of breath. Patient is being transferred to medical floor today Constitutional: Denied any fatigue denied any fever. Cardio vascular: denied any chest pain, palpitations Gastrointestinal denied any nausea vomiting Pulmonary: Denied any shortness of breath cough Neurologic denied any new focal deficits Current medications reviewed. Objective - Vital Signs Vital signs: Vital Signs Temp 98.1 F 07/13/17 14:19 Pulse 104 H 07/13/17 20:29 Resp 20 07/13/17 15:20 BP 148/89 07/13/17 14:19 Pulse Ox 95 07/13/17 14:19 Intake & Output 07/13/17 07/13/17 07/14/17 06:59 18:59 06:59 Intake Total 1525 1275 Output Total 1500 500 Balance 25 775 Weight 38.7 kg Intake: IV 1375 250 Sodium Chloride 0.9% 1, 1375 250 000 ml @ 125 mls/hr IV . Q8H [facility] Rx#:[id number] Intake, IV Titration 150 1025 Amount Magnesium Sulfate-D5w Pmx 100 100 1 gm In Dextrose/Water 1 100ml.bag @ 100 mls/hr IVPB Q1H [facility] Rx#: [id number] Sodium Phosph/0.9 NaCl 10 50 50 mmol In Saline 100 100ml .bag @ 100 mls/hr IVPB ONCE ONE Rx#:[id number] Sodium Phosphate 10 mmol 875 In Sodium Chloride 0.9% 250 ml @ 125 mls/hr IVPB ONCE ONE Rx#:[id number] Output: Urine 1500 500 Other: Voiding Method Bedpan Toilet # Voids 1 - Exam PHYSICAL EXAMINATION: Patient is lying in the bed comfortably, no acute distress, awake alert and oriented.. HEENT: Normocephalic. Neck is supple. Pupils reactive. Nostrils clear. Oral cavity is moist. Ears reveal no drainage. Neck reveals no JVD, carotid bruits, or thyromegaly. CHEST EXAMINATION: Trachea is central. Symmetrical expansion. Bilateral air entry diminished and very slow. No wheezing noted CARDIAC: Normal S1, S2 with no gallops. No murmurs ABDOMEN: Soft. Bowel sounds normal. No organomegaly. No abdominal bruits. Extremities: reveal no edema. No clubbing or cyanosis Neurologically awake, alert, oriented x3 with well-coordinated movements. No focal deficits noted Skin: No rash or skin lesions. Psychiatric: Operative. Nonsuicidal Musculoskeletal: No joint swelling or deformity. Normal range of motion. - Labs CBC & Chem 7: 07/13/17 04:24 07/13/17 04:24 Labs: Abnormal Lab Results - Last 24 Hours (Table) 07/13/17 07/13/17 07/13/17 Range/Units 04:24 04:24 07:16 MCV 102.2 H (80.0-100.0) fL Potassium 3.3 L (3.5-5.1) mmol/L Creatinine 0.50 L (0.52-1.04) mg/dL POC Glucose (mg/dL) 103 H (75-99) mg/dL Phosphorus 2.2 L (2.5-4.5) mg/dL 07/13/17 07/13/17 07/13/17 Range/Units 12:53 16:48 20:49 MCV (80.0-100.0) fL Potassium (3.5-5.1) mmol/L Creatinine (0.52-1.04) mg/dL POC Glucose (mg/dL) 134 H 144 H 126 H (75-99) mg/dL Phosphorus (2.5-4.5) mg/dL Microbiology - Last 24 Hours (Table) 07/07/17 11:09 Blood Culture - Final Blood No Growth after 144 hours Assessment and Plan Plan: #1 acute hypoxic respiratory failure secondary to COPD exacerbation #2 acute COPD exacerbation #3 elevated troponin level. Likely due to demand mismatch. Possible Non STEMI #4 nicotine addiction #5 history of TIA/CVA #6 DVT prophylaxis #7 acute delirium which is multifactorial due to acute medical condition. Much improved #8 anxiety Plan: Patient will be continued O2 therapy as needed. Patient is not requiring BiPAP. Continue with po steroids and duonebs. Pulmicort and perforamist was added. Continue with cefuroxime. Continue telemetry monitoring and serial troponin level. Being followed by pulmonary and cardiology. Patient was counseled for smoking cessation. Patient is being transferred to medical floor today. continue the current management and further recommendations based on the clinical course. Time with Patient: Greater than 30
[2017-07-14 07:09] LABS: Glucose,Whole Blood 89 mg/dL (75-99)
--- NOTE | 2017-07-14 07:44 | XR ---
EXAMINATION TYPE: XR chest 1V DATE OF EXAM: 07/14/2017 COMPARISON: 07/13/2017 HISTORY: COPD exacerbation TECHNIQUE: Single frontal view of the chest is obtained. FINDINGS: No new focal consolidation is seen. Again there is pulmonary hyperinflation and flattening of the diaphragms with biapical lucency relating to the known underlying COPD. Mediastinum is shifte d to the left due to patient rotation. No pneumothorax or pleural effusion. Blunting of the costophre keesha angles relates to degree of inspiration. Chronic rib deformities are seen of the lateral margins of the right inferior ribs. Chondroid matrix right proximal humeral lesion is unchanged and may repre sent benign chondroma or prior bone infarct. IMPRESSION: 1. No new focal consolidation. 2. Radiographic sequela of COPD. 3. Redemonstration of a chondroid matrix right humeral lesion that again may represent an enchondroma or bone infarct.
[2017-07-14] MEDS: INSULIN LISPRO (humaLOG) 300 UNIT/3 ML VIAL SQ SCH ×4 (07:50→22:09)
[2017-07-14] MEDS: PANTOPRAZOLE 40 MG TABLET PO SCH (07:51)
[2017-07-14] MEDS: HEPARIN SODIUM,PORCINE 5,000 UNIT/ML 1 ML VIAL SQ SCH ×3 (07:51→22:09)
[2017-07-14] MEDS: NICOTINE 21MG/24HR PATCH TRANSDERM SCH (07:51)
[2017-07-14] MEDS: CEFUROXIME 250 MG TAB PO SCH ×2 (07:52→22:08)
[2017-07-14] MEDS: ASPIRIN 81 MG PO SCH (07:52)
[2017-07-14] MEDS: amLODIPine 5 MG TAB PO SCH (07:52)
[2017-07-14] MEDS: METOPROLOL TARTRATE 25 MG TAB PO SCH ×2 (07:53→22:08)
[2017-07-14] MEDS: CYCLOBENZAPRINE 10 MG TAB PO SCH ×2 (07:53→22:08)
[2017-07-14] MEDS: predniSONE 20 MG TAB PO SCH (07:53)
[2017-07-14 07:55] LABS: Basophils % (A) 0 %; CH 32.3; CHCM 31.5; Eosinophils # (A) 0.1 k/uL (0-0.7); Eosinophils % (A) 1 %; HCT 41.1 % (34.0-46.0); HGB 12.8 gm/dL (11.4-16.0); Luc # (Auto) 0.17; Luc % (Auto) 2; Lymphocytes # (A) 1.6 k/uL (1.0-4.8); Lymphocytes % (A) 20 %; MCHC 31.1 g/dL (31.0-37.0); MCV 103.1 fL (80.0-100.0); Macrocytosis Slight; Mean Platelet Volume 6.5; Monocytes # (A) 0.4 k/uL (0-1.0); Monocytes % (A) 5 %; Neutrophils # (A) 5.6 k/uL (1.3-7.7); Neutrophils % (A) 71 %; RBC 3.98 m/uL (3.80-5.40); RDW 13.1 % (11.5-15.5); WBC 7.9 k/uL (3.8-10.6); WBC (Perox) 8.19
[2017-07-14] MEDS: IPRATROPIUM-ALBUTEROL 3 ML NEB INHALATION PRN ×4 (07:57→20:19)
[2017-07-14] MEDS: BUDESONIDE 0.5 MG/2 ML NEBU INHALATION SCH ×2 (07:57→20:19)
[2017-07-14 08:08] LABS: Anion Gap 5 mmol/L; Blood Urea Nitrogen 9 mg/dL (7-17); Calcium 8.3 mg/dL (8.4-10.2); Carbon Dioxide 29 mmol/L (22-30); Chloride 105 mmol/L (98-107); Glucose 74 mg/dL (74-99); Magnesium 1.7 mg/dL (1.6-2.3); Non-African American GFR(MDRD) >60 (>60 ml/min/1.73 sqM); Phosphorus 2.6 mg/dL (2.5-4.5); Potassium 3.4 mmol/L (3.5-5.1); Sodium 139 mmol/L (137-145)
[2017-07-14] MEDS: ALPRAZolam 0.5 MG TAB PO PRN ×2 (08:33→22:12)
[2017-07-14 12:00] LABS: Glucose,Whole Blood 143 mg/dL (75-99)
[2017-07-14] MEDS: MAGNESIUM SULFATE-D5W PMX 1 GM in DEXTROSE/WATER 1 100ML.BAG IVPB SCH ×2 (12:42→15:22)
[2017-07-14] MEDS ORDERED: POTASSIUM CHLORIDE ER 20 MEQ TAB.ER PO SCH (13:00)
--- NOTE | 2017-07-14 13:38 | P.PN ---
Subjective Progress Note Date: 07/14/17 Principal diagnosis: Acute hypoxic respiratory failure due to COPD exacerbation A very pleasant 62-year-old female patient was Hospital as for worsening shortness of breath. The patient is known to have COPD and she is a chronic smoker witnessed to smoke around 1 pack of cigarettes on a daily basis. Her breathing has been progressively getting worse and she had seen Dr. Salmeron on outpatient basis with treated this patient without any improvement. Subsequently the patient came into the emergency department yesterday because of significant respiratory distress and impending respiratory failure. At that point the patient was placed on a BiPAP and currently still on a BiPAP for respiratory support at a pressure of 10/5 cm of water and she is tolerating it well. She remains actively bronchospastic and wheezy. Her chest x-ray shows hyperinflation and enlarged lung volumes without any acute pulmonary infiltration or pneumonias. No signs of any failure. No change in mental status. No pleurisy. No hemoptysis. No angina. No swelling lower extremities. This is the patient's first hospitalization for an acute COPD exacerbation. The patient has not been utilizing oxygen or any form of regular inhalers at home. She has a nebulizer at home. No aspiration. No travel history. No recurrent pneumonias. On 07/09/2017 the patient is feeling less short of breath compared to yesterday. The patient was taken off the BiPAP this morning. She is able to speak full sentences and she is less bronchospastic and wheezy compared to yesterday. No angina. No nausea or vomiting. No abdominal pain. No swelling lower extremities. She has some degree of anxiety for which she is on Xanax. She seems to be, that not to smoke anymore. I still have this patient a combination of DuoNeb nebulized treatments around the clock, Pulmicort Respules , Perforomist twice a day, empiric antibiotic coverage with Levaquin and IV Solu -Medrol. On 07/10/2017 the patient is slowly improving. She is still off the BiPAP. No cough or sputum production. Still bronchospastic and wheezy although less compared to yesterday. She is supplementing her diet with ensure. She is tolerating her diet. No nausea or vomiting. No chest pain. No other new complaints and she is a bit weak yet she is in good spirits and she wants to improve and recover from her acute COPD exacerbation. On 07/11/2017, the patient is significantly worse. After my evaluation yesterday this morning the patient started getting progressively more weak and lethargic and on and off was having episodes of confusion. This morning her condition is even worse. She is very lethargic still. She short of breath. Tachypneic even at rest. Having difficulty breathing and using some accessory muscles of breathing. Suspected CO2 narcosis. Her blood gases obtained that showed an acute alkalosis with a pH of 7.53 and a pCO2 of 40 and pO2 of 67 and this was done and FiO2 of 36%. She had a congested cough that she was unable to become much sputum. Still bronchospastic and wheezy. Very weak. Arousable yet her sensorium is quite cloudy at this point. She is moving all 4 extremities. No focal neurological deficits. She is afebrile. She is slightly tachycardic. A repeat stat chest x-ray was obtained and the patient was moved to the intensive care unit for further monitoring and BiPAP treatment. The patient had a CAT scan of the head that showed no acute abnormalities. She is quite weak and cachectic. She has a very limited reserve. Atelectatic discussion with the family and explained to them the ongoing issues with COPD exacerbation and impending respiratory failure. Reevaluated on 07/12/2017, patient seems to be alert oriented, but slightly anxious. She remains on nasal cannula, but she is tachycardic, and hypertensive. Urine output is marginal, her IV fluid was increased, ABG from admission was reviewed. Patient remains on multiple medications for anxiety, today I added Seroquel. This will be 25 mg twice a day. I discontinued her Haldol, kept her on Xanax, chest x-ray was reviewed and it showed mostly evidence of COPD. No evidence of infiltrate. Family is at bedside, and I discussed her condition with her and her son, and I plan to keep her in the ICU because of her anxiety and intermittent episodes of confusion. Reevaluated today on 07/13/2017, patient seems to be doing much better, breathing a lot easier, she was in the ICU during my evaluation, and she was very appropriate, not anxious, heart rate is controlled, and blood pressure is also well controlled. All her meds were reviewed, patient is on Xanax, she is also on Seroquel. That seems to be helping her anxiety and agitation quite significantly. Labs were reviewed, potassium is a bit low at 3.3 being corrected, chest x-ray was also reviewed showing mostly COPD. On 07/14/2017 patient continues to make significant improvement in her pulmonary status. Chest x-ray from 07/14/2017 has been reviewed and showed no evidence of new focal consolidation. Patient continues on Ceftin for empiric antibiotic coverage. She is on 3 L O2 with O2 saturation from 95-96%. No febrile episodes overnight. WBC is at 7.9 today, with potassium of 3.4 and magnesium of 1.7. Lungs sounds are diminished bilaterally with a few end expiratory wheezing over left upper lobe. Patient has been ambulating about the room on portable oxygen, tolerating activity well. She did not require BiPAP last night. She was again counseled about smoking cessation, and she states she is committed to this goal after this acute exacerbation of COPD and hospitalization. Objective - Vital Signs Vital signs: Vital Signs Temp 98.3 F 07/14/17 07:00 Pulse 100 07/14/17 11:49 Resp 16 07/14/17 08:00 BP 167/89 07/14/17 07:00 Pulse Ox 95 07/14/17 07:00 Intake & Output 07/13/17 07/14/17 07/14/17 18:59 06:59 18:59 Intake Total 1275 375 Output Total 500 Balance 775 375 Intake: IV 250 375 Sodium Chloride 0.9% 1, 250 375 000 ml @ 125 mls/hr IV . Q8H [facility] Rx#:[id number] Intake, IV Titration 1025 Amount Magnesium Sulfate-D5w Pmx 100 1 gm In Dextrose/Water 1 100ml.bag @ 100 mls/hr IVPB Q1H [facility] Rx#: [id number] Sodium Phosph/0.9 NaCl 10 50 mmol In Saline 100 100ml .bag @ 100 mls/hr IVPB ONCE ONE Rx#:[id number] Sodium Phosphate 10 mmol 875 In Sodium Chloride 0.9% 250 ml @ 125 mls/hr IVPB ONCE ONE Rx#:[id number] Output: Urine 500 Other: Voiding Method Toilet Toilet Toilet # Voids 1 1 - Exam Physical Exam: Revealed a cachectic and frail looking female, in no form of respiratory distress. BMI is 15.6. HEENT: PERRLA, EOMI, head is atraumatic and normocephalic. [Neck is supple.] [ No neck masses.] [No thyromegaly.] [No JVD.] Chest: [Diminished breath sound bilaterally, no crackles, no rhonchi. Few end expiratory wheezes.] Cardiac Exam: [Normal S1 and S2, no S3 gallop, no murmur.] Abdomen: [Soft, nontender, no megaly, no rebound, no guarding, normal bowel sounds.] Extremities: [No clubbing, no edema, no cyanosis.] Neurological Exam: [No focal neurologic deficit.] Psychiatric: Increased level of anxiety, looks anxious, but appropriate mental status examination. Skin: No rashes. No ulceration. Lymphatics: No lymphadenopathy was appreciated. - Labs CBC & Chem 7: 07/14/17 07:24 07/14/17 07:24 Labs: Abnormal Lab Results - Last 24 Hours (Table) 07/13/17 07/13/17 07/14/17 Range/Units 16:48 20:49 07:24 MCV 103.1 H (80.0-100.0) fL Potassium (3.5-5.1) mmol/L POC Glucose (mg/dL) 144 H 126 H (75-99) mg/dL Calcium (8.4-10.2) mg/dL 07/14/17 07/14/17 Range/Units 07:24 11:39 MCV (80.0-100.0) fL Potassium 3.4 L (3.5-5.1) mmol/L POC Glucose (mg/dL) 143 H (75-99) mg/dL Calcium 8.3 L (8.4-10.2) mg/dL Microbiology - Last 24 Hours (Table) 07/07/17 11:09 Blood Culture - Final Blood No Growth after 144 hours Assessment and Plan Plan: Assessment: 1 acute exacerbation of COPD and acute hypoxic respiratory failure, continues to improve 2 acute BiPAP dependent respiratory failure secondary to COPD exacerbation 3 chronic smoker 4 hypertension, Lopressor dose will be increased to 25 twice a day, and Norvasc 5 mg daily was added. 5 remote history of TIA 6 cachexia with a BMI of 15.6 7 chronic anxiety, requiring multiple meds, Seroquel was added. Recommendation: Patient continues to make significant improvement in her pulmonary status, continue the same medications including Xanax and Seroquel, I plan to continue bronchodilators including steroids. Microbiology results have been reviewed, blood cultures are negative so far. Continue with empiric Ceftin. We'll continue to follow, possible discharge today. Follow-up with Dr. De La Paz in the office in one week. I performed a history & physical examination of the patient and discussed their management with my nurse practitioner, Missy Gaines. I reviewed the nurse practitioner's note and agree with the documented findings and plan of care. Lung sounds are diminished bilaterally with few end expiratory wheezing, but no rhonchi no rales. Continues to make significant improvement. Stable for discharge from pulmonary standpoint. Follow-up in the office in one week. I attest the documentation by nurse practitioner
[2017-07-14] MEDS: HYDROcodone/APAP 5-325MG 1 EACH TAB PO PRN (16:33)
[2017-07-14 17:12] LABS: Glucose,Whole Blood 157 mg/dL (75-99)
[2017-07-14 20:21] LABS: Glucose,Whole Blood 102 mg/dL (75-99)
[2017-07-14] MEDS: ATORVASTATIN 10 MG TAB PO SCH (22:08)
[2017-07-14] MEDS: QUEtiapine 50 MG TAB PO SCH (22:08)
[2017-07-14] MEDS: SODIUM CHLORIDE 0.9% 1,000 ML IV SCH (22:47)
--- NOTE | 2017-07-15 00:28 | P.PN ---
Subjective Progress Note Date: 07/14/17 Principal diagnosis: Acute COPD exacerbation Patient is a 60-year-old female with known history of COPD and hypertension and actually good ejection came to the hospital with complaints of shortness of breath which is getting worse for the past 4 days. Patient states it got so bad today that she had called EMS. EMS stated that her pulse ox was in the 70s on room air and 91 on BiPAP in the ambulance. Patient states she's had no fever or chills she's had no chest pain or palpitations. Patient states she has been coughing but hasn't been coughing a lot up. Patient denies any abdominal pain patient denies any nausea vomiting diarrhea. Patient denies any lightheadedness or dizziness. Denied any recent illnesses. Patient denied any prior pulmonary follow-up. No history of intubation. On 07/08/2017 Patient is still having symptoms and short of breath and currently on BiPAP. Patient is still wheezing and diminished basilar bilateral air entry. No fever no chills. Patient was seen by pulmonary. No complaints of chest pain. No nausea vomiting or abdominal pain. All other review of systems negative except the above 07/09/2017 Patient did improve symptomatically. Currently saturating well another cannula. BiPAP daily at bedtime as needed. Clinically improving. Now, as her chest pain no worsening short of breath. No nausea vomiting or abdominal pain. All other review of systems negative except the above. 07/10/2017 when I evaluated the patient patient is in respiratory distress without oxygen. Patient may end up needing onset at home. 07/11 2017 Patient is more confused yesterday did have a fall patient is still retaining CO2 rest for discharge did not improve patient is being transferred to ICU for BiPAP unable to often review of systems although patient is arousable but they wake able to protect the airway and is answering questions still short of breath 07/12/2017 Patient is quite delirious apparently although patient is appropriate when I talked to the patient, patient a delirium is multifactorial including CO2 narcosis, Gautam denies opinions, barbiturates opiates, systemic steroids. Patient systemic steroids were switched to oral steroids., Xanax we are cutting it down from 2 mg 2.5 mg, discontinue [place] and patient is on seroquil agitation along with as needed Haldol. 07/13/2017 Patient is more awake and oriented today. Delirium improved. Patient is saturating well another cannula. No chest pain. No worsening short of breath. Patient is being transferred to medical floor today 07/14/2017 Patient is more awake and oriented today. With the status is much improved. No fever no chills. No cough or sputum production. No acute overnight issues. Delirium resolved. Constitutional: Denied any fatigue denied any fever. Cardio vascular: denied any chest pain, palpitations Gastrointestinal denied any nausea vomiting Pulmonary: Denied any shortness of breath cough Neurologic denied any new focal deficits Current medications reviewed. Objective - Vital Signs Vital signs: Vital Signs Temp 98.3 F 07/14/17 21:41 Pulse 100 07/14/17 21:41 Resp 20 07/14/17 21:41 BP 130/87 07/14/17 21:41 Pulse Ox 94 L 07/14/17 21:41 Intake & Output 07/14/17 07/14/17 07/15/17 06:59 18:59 06:59 Intake Total 375 Balance 375 Weight 38.7 kg Intake: IV 375 Sodium Chloride 0.9% 1, 375 000 ml @ 125 mls/hr IV . Q8H [facility] Rx#:[id number] Other: Voiding Method Toilet Toilet # Voids 1 3 # Bowel Movements 0 - Exam PHYSICAL EXAMINATION: Patient is lying in the bed comfortably, no acute distress, awake alert and oriented.. HEENT: Normocephalic. Neck is supple. Pupils reactive. Nostrils clear. Oral cavity is moist. Ears reveal no drainage. Neck reveals no JVD, carotid bruits, or thyromegaly. CHEST EXAMINATION: Trachea is central. Symmetrical expansion. Bilateral air entry improved but prolonged. No wheezing noted CARDIAC: Normal S1, S2 with no gallops. No murmurs ABDOMEN: Soft. Bowel sounds normal. No organomegaly. No abdominal bruits. Extremities: reveal no edema. No clubbing or cyanosis Neurologically awake, alert, oriented x3 with well-coordinated movements. No focal deficits noted Skin: No rash or skin lesions. Psychiatric: Operative. Nonsuicidal Musculoskeletal: No joint swelling or deformity. Normal range of motion. - Labs CBC & Chem 7: 07/14/17 07:24 07/14/17 07:24 Labs: Abnormal Lab Results - Last 24 Hours (Table) 07/14/17 07/14/17 07/14/17 Range/Units 07:24 07:24 11:39 MCV 103.1 H (80.0-100.0) fL Potassium 3.4 L (3.5-5.1) mmol/L POC Glucose (mg/dL) 143 H (75-99) mg/dL Calcium 8.3 L (8.4-10.2) mg/dL 07/14/17 07/14/17 Range/Units 17:08 20:20 MCV (80.0-100.0) fL Potassium (3.5-5.1) mmol/L POC Glucose (mg/dL) 157 H 102 H (75-99) mg/dL Calcium (8.4-10.2) mg/dL Assessment and Plan Plan: #1 acute hypoxic respiratory failure secondary to COPD exacerbation #2 acute COPD exacerbation #3 elevated troponin level. Likely due to demand mismatch. Possible Non STEMI #4 nicotine addiction #5 history of TIA/CVA #6 DVT prophylaxis #7 acute delirium which is multifactorial due to acute medical condition. Much improved #8 anxiety Plan: Patient will be continued O2 therapy as needed. Patient is not requiring BiPAP. Continue with po steroids and duonebs. Pulmicort and perforamist was added. Continue with cefuroxime. Continue telemetry monitoring and serial troponin level. Being followed by pulmonary and cardiology. Patient was counseled for smoking cessation. Patient is being transferred to medical floor today. continue the current management and further recommendations based on the clinical course.
[2017-07-15] MEDS: HYDROcodone/APAP 5-325MG 1 EACH TAB PO PRN (06:25)
[2017-07-15 06:46] LABS: Basophils % (A) 0 %; CH 32.3; CHCM 32.4; Eosinophils # (A) 0.1 k/uL (0-0.7); Eosinophils % (A) 1 %; HCT 40.1 % (34.0-46.0); HDW 2.43; HGB 12.9 gm/dL (11.4-16.0); Luc # (Auto) 0.18; Luc % (Auto) 2; Lymphocytes # (A) 2.2 k/uL (1.0-4.8); Lymphocytes % (A) 18 %; MCH 32.3 pg (25.0-35.0); MCHC 32.3 g/dL (31.0-37.0); MCV 100.1 fL (80.0-100.0); Monocytes # (A) 0.8 k/uL (0-1.0); Monocytes % (A) 7 %; Neutrophils # (A) 8.6 k/uL (1.3-7.7); Neutrophils % (A) 73 %; RBC 4.01 m/uL (3.80-5.40); RDW 13.1 % (11.5-15.5); WBC 11.9 k/uL (3.8-10.6); WBC (Perox) 12.17
[2017-07-15] MEDS: IPRATROPIUM-ALBUTEROL 3 ML NEB INHALATION PRN ×3 (07:14→15:59)
[2017-07-15] MEDS: BUDESONIDE 0.5 MG/2 ML NEBU INHALATION SCH (07:14)
[2017-07-15 07:18] LABS: Anion Gap 6 mmol/L; Blood Urea Nitrogen 8 mg/dL (7-17); Calcium 8.6 mg/dL (8.4-10.2); Carbon Dioxide 31 mmol/L (22-30); Chloride 102 mmol/L (98-107); Glucose 81 mg/dL (74-99); Magnesium 1.9 mg/dL (1.6-2.3); Non-African American GFR(MDRD) >60 (>60 ml/min/1.73 sqM); Phosphorus 3.4 mg/dL (2.5-4.5); Potassium 3.6 mmol/L (3.5-5.1); Sodium 139 mmol/L (137-145)
--- NOTE | 2017-07-15 07:36 | XR ---
EXAMINATION TYPE: XR chest 1V DATE OF EXAM: 07/15/2017 COMPARISON: 07/14/2017 INDICATION: COPD exacerbation TECHNIQUE: Single frontal view of the chest is obtained. FINDINGS: The heart size is normal. The pulmonary vasculature is normal. The lungs are clear. There is hyperinflation compatible COPD. Some minimal pleural effusions may be present. Medullary inf arct is in the right shoulder humerus. IMPRESSION: 1. Small bilateral pleural effusions. 2. COPD
[2017-07-15 07:51] LABS: Glucose,Whole Blood 95 mg/dL (75-99)
[2017-07-15] MEDS: INSULIN LISPRO (humaLOG) 300 UNIT/3 ML VIAL SQ SCH ×3 (07:51→17:33)
[2017-07-15] MEDS: predniSONE 20 MG TAB PO SCH (07:53)
[2017-07-15] MEDS: amLODIPine 5 MG TAB PO SCH (07:53)
[2017-07-15] MEDS: METOPROLOL TARTRATE 25 MG TAB PO SCH (07:53)
[2017-07-15] MEDS: PANTOPRAZOLE 40 MG TABLET PO SCH (07:53)
[2017-07-15] MEDS: ASPIRIN 81 MG PO SCH (07:53)
[2017-07-15] MEDS: NICOTINE 21MG/24HR PATCH TRANSDERM SCH (07:54)
[2017-07-15] MEDS: CYCLOBENZAPRINE 10 MG TAB PO SCH (07:54)
[2017-07-15] MEDS: HEPARIN SODIUM,PORCINE 5,000 UNIT/ML 1 ML VIAL SQ SCH ×2 (07:54→17:32)
[2017-07-15] MEDS: CEFUROXIME 250 MG TAB PO SCH (07:54)
[2017-07-15] MEDS: ALPRAZolam 0.5 MG TAB PO PRN (10:14)
[2017-07-15 11:30] LABS: Glucose,Whole Blood 130 mg/dL (75-99)
--- NOTE | 2017-07-15 13:19 | P.PN ---
Subjective Progress Note Date: 07/15/17 Principal diagnosis: Acute hypoxic respiratory failure due to COPD exacerbation A very pleasant 62-year-old female patient was Hospital as for worsening shortness of breath. The patient is known to have COPD and she is a chronic smoker witnessed to smoke around 1 pack of cigarettes on a daily basis. Her breathing has been progressively getting worse and she had seen Dr. Salmeron on outpatient basis with treated this patient without any improvement. Subsequently the patient came into the emergency department yesterday because of significant respiratory distress and impending respiratory failure. At that point the patient was placed on a BiPAP and currently still on a BiPAP for respiratory support at a pressure of 10/5 cm of water and she is tolerating it well. She remains actively bronchospastic and wheezy. Her chest x-ray shows hyperinflation and enlarged lung volumes without any acute pulmonary infiltration or pneumonias. No signs of any failure. No change in mental status. No pleurisy. No hemoptysis. No angina. No swelling lower extremities. This is the patient's first hospitalization for an acute COPD exacerbation. The patient has not been utilizing oxygen or any form of regular inhalers at home. She has a nebulizer at home. No aspiration. No travel history. No recurrent pneumonias. On 07/09/2017 the patient is feeling less short of breath compared to yesterday. The patient was taken off the BiPAP this morning. She is able to speak full sentences and she is less bronchospastic and wheezy compared to yesterday. No angina. No nausea or vomiting. No abdominal pain. No swelling lower extremities. She has some degree of anxiety for which she is on Xanax. She seems to be, that not to smoke anymore. I still have this patient a combination of DuoNeb nebulized treatments around the clock, Pulmicort Respules , Perforomist twice a day, empiric antibiotic coverage with Levaquin and IV Solu -Medrol. On 07/10/2017 the patient is slowly improving. She is still off the BiPAP. No cough or sputum production. Still bronchospastic and wheezy although less compared to yesterday. She is supplementing her diet with ensure. She is tolerating her diet. No nausea or vomiting. No chest pain. No other new complaints and she is a bit weak yet she is in good spirits and she wants to improve and recover from her acute COPD exacerbation. On 07/11/2017, the patient is significantly worse. After my evaluation yesterday this morning the patient started getting progressively more weak and lethargic and on and off was having episodes of confusion. This morning her condition is even worse. She is very lethargic still. She short of breath. Tachypneic even at rest. Having difficulty breathing and using some accessory muscles of breathing. Suspected CO2 narcosis. Her blood gases obtained that showed an acute alkalosis with a pH of 7.53 and a pCO2 of 40 and pO2 of 67 and this was done and FiO2 of 36%. She had a congested cough that she was unable to become much sputum. Still bronchospastic and wheezy. Very weak. Arousable yet her sensorium is quite cloudy at this point. She is moving all 4 extremities. No focal neurological deficits. She is afebrile. She is slightly tachycardic. A repeat stat chest x-ray was obtained and the patient was moved to the intensive care unit for further monitoring and BiPAP treatment. The patient had a CAT scan of the head that showed no acute abnormalities. She is quite weak and cachectic. She has a very limited reserve. Atelectatic discussion with the family and explained to them the ongoing issues with COPD exacerbation and impending respiratory failure. Reevaluated on 07/12/2017, patient seems to be alert oriented, but slightly anxious. She remains on nasal cannula, but she is tachycardic, and hypertensive. Urine output is marginal, her IV fluid was increased, ABG from admission was reviewed. Patient remains on multiple medications for anxiety, today I added Seroquel. This will be 25 mg twice a day. I discontinued her Haldol, kept her on Xanax, chest x-ray was reviewed and it showed mostly evidence of COPD. No evidence of infiltrate. Family is at bedside, and I discussed her condition with her and her son, and I plan to keep her in the ICU because of her anxiety and intermittent episodes of confusion. Reevaluated today on 07/13/2017, patient seems to be doing much better, breathing a lot easier, she was in the ICU during my evaluation, and she was very appropriate, not anxious, heart rate is controlled, and blood pressure is also well controlled. All her meds were reviewed, patient is on Xanax, she is also on Seroquel. That seems to be helping her anxiety and agitation quite significantly. Labs were reviewed, potassium is a bit low at 3.3 being corrected, chest x-ray was also reviewed showing mostly COPD. On 07/14/2017 patient continues to make significant improvement in her pulmonary status. Chest x-ray from 07/14/2017 has been reviewed and showed no evidence of new focal consolidation. Patient continues on Ceftin for empiric antibiotic coverage. She is on 3 L O2 with O2 saturation from 95-96%. No febrile episodes overnight. WBC is at 7.9 today, with potassium of 3.4 and magnesium of 1.7. Lungs sounds are diminished bilaterally with a few end expiratory wheezing over left upper lobe. Patient has been ambulating about the room on portable oxygen, tolerating activity well. She did not require BiPAP last night. She was again counseled about smoking cessation, and she states she is committed to this goal after this acute exacerbation of COPD and hospitalization. On 07/15/2017 patient tends to improve. Patient had a repeat chest x-ray today on 07/15/2017 that showed small bilateral pleural effusions and hyperinflation compatible with COPD. No significant sputum production, lung sounds slightly diminished on the right and clear on the left. No wheezing, no rhonchi noted. She has been afebrile, continues on Ceftin, blood cultures are negative. She is stable for discharge from pulmonary standpoint. Stated the plan for her is to go to subacute rehab today Objective - Vital Signs Vital signs: Vital Signs Temp 98.7 F 07/15/17 07:00 Pulse 84 07/15/17 11:29 Resp 16 07/15/17 08:00 BP 120/83 07/15/17 07:00 Pulse Ox 94 L 07/15/17 07:00 Intake & Output 07/14/17 07/15/17 07/15/17 18:59 06:59 18:59 Intake Total 240 Balance 240 Weight 38.7 kg 38.7 kg Intake: IV 240 ns@20 240 Other: Voiding Method Toilet Toilet Toilet # Voids 3 3 # Bowel Movements 0 0 - Exam Physical Exam: Revealed a cachectic and frail looking female, in no form of respiratory distress. BMI is 15.6. HEENT: PERRLA, EOMI, head is atraumatic and normocephalic. [Neck is supple.] [ No neck masses.] [No thyromegaly.] [No JVD.] Chest: [Diminished breath sounds, right greater than the left. no crackles, no rhonchi. Cardiac Exam: [Normal S1 and S2, no S3 gallop, no murmur.] Abdomen: [Soft, nontender, no megaly, no rebound, no guarding, normal bowel sounds.] Extremities: [No clubbing, no edema, no cyanosis.] Neurological Exam: [No focal neurologic deficit.] Psychiatric: Increased level of anxiety, looks anxious, but appropriate mental status examination. Skin: No rashes. No ulceration. Lymphatics: No lymphadenopathy was appreciated. - Labs CBC & Chem 7: 07/15/17 06:27 07/15/17 06:27 Labs: Abnormal Lab Results - Last 24 Hours (Table) 07/14/17 07/14/17 07/15/17 Range/Units 17:08 20:20 06:27 WBC 11.9 H (3.8-10.6) k/uL MCV 100.1 H (80.0-100.0) fL Neutrophils # 8.6 H (1.3-7.7) k/uL Carbon Dioxide (22-30) mmol/L POC Glucose (mg/dL) 157 H 102 H (75-99) mg/dL 07/15/17 07/15/17 Range/Units 06:27 11:26 WBC (3.8-10.6) k/uL MCV (80.0-100.0) fL Neutrophils # (1.3-7.7) k/uL Carbon Dioxide 31 H (22-30) mmol/L POC Glucose (mg/dL) 130 H (75-99) mg/dL Assessment and Plan Plan: Assessment: 1 acute exacerbation of COPD and acute hypoxic respiratory failure, continues to improve 2 acute BiPAP dependent respiratory failure secondary to COPD exacerbation 3 chronic smoker 4 hypertension, Lopressor dose will be increased to 25 twice a day, and Norvasc 5 mg daily was added. 5 remote history of TIA 6 cachexia with a BMI of 15.6 7 chronic anxiety, requiring multiple meds, Seroquel was added. Recommendation: Patient continues to make improvement in her pulmonary status, continue the same medications including Xanax and Seroquel, I plan to continue bronchodilators including steroids. Microbiology results have been reviewed, blood cultures are negative so far. Continue with empiric Ceftin. We'll continue to follow, stable for discharge today. Follow-up with Dr. De La Paz in the office in one week. I performed a history & physical examination of the patient and discussed their management with my nurse practitioner, Missy Gaines. I reviewed the nurse practitioner's note and agree with the documented findings and plan of care. Lung sounds are diminished bilaterally with few end expiratory wheezing, but no rhonchi no rales. Continues to make significant improvement. Stable for discharge from pulmonary standpoint. Follow-up in the office in one week. I attest the documentation by nurse practitioner
--- NOTE | 2017-07-15 16:04 | P.DS ---
Providers Date of admission: 07/07/17 12:45 Expected date of discharge: 07/15/17 Attending physician: Sandra Weiss Consults: 07/07/17 23:04 Consult Physician Routine Consulting Provider: Ron Ley Consult Reason/Comments: elevated troponin Do you want consulting provider notified?: Yes 07/07/17 23:05 Consult Physician Routine Consulting Provider: Bibi Perez Consult Reason/Comments: COPD Do you want consulting provider notified?: Yes Primary care physician: Jaron Leach Hospital Course: discharge diagnosis #1 acute hypoxic respiratory failure secondary to COPD exacerbation #2 acute COPD exacerbation #3 elevated troponin level. Likely due to demand mismatch. Possible Non STEMI #4 nicotine addiction #5 history of TIA/CVA #6 DVT prophylaxis #7 acute delirium which is multifactorial due to acute medical condition. Much improved #8 anxiety Hospital course Patient is a 60-year-old female with known history of COPD and hypertension and actually good ejection came to the hospital with complaints of shortness of breath which is getting worse for the past 4 days. Patient states it got so bad today that she had called EMS. EMS stated that her pulse ox was in the 70s on room air and 91 on BiPAP in the ambulance. Patient states she's had no fever or chills she's had no chest pain or palpitations. Patient states she has been coughing but hasn't been coughing a lot up. Patient denies any abdominal pain patient denies any nausea vomiting diarrhea. Patient denies any lightheadedness or dizziness. Denied any recent illnesses. Patient denied any prior pulmonary follow-up. No history of intubation. On 07/08/2017 Patient is still having symptoms and short of breath and currently on BiPAP. Patient is still wheezing and diminished basilar bilateral air entry. No fever no chills. Patient was seen by pulmonary. No complaints of chest pain. No nausea vomiting or abdominal pain. All other review of systems negative except the above 07/09/2017 Patient did improve symptomatically. Currently saturating well another cannula. BiPAP daily at bedtime as needed. Clinically improving. Now, as her chest pain no worsening short of breath. No nausea vomiting or abdominal pain. All other review of systems negative except the above. 07/10/2017 when I evaluated the patient patient is in respiratory distress without oxygen. Patient may end up needing onset at home. 07/11 2017 Patient is more confused yesterday did have a fall patient is still retaining CO2 rest for discharge did not improve patient is being transferred to ICU for BiPAP unable to often review of systems although patient is arousable but they wake able to protect the airway and is answering questions still short of breath 07/12/2017 Patient is quite delirious apparently although patient is appropriate when I talked to the patient, patient a delirium is multifactorial including CO2 narcosis, Gautam denies opinions, barbiturates opiates, systemic steroids. Patient systemic steroids were switched to oral steroids., Xanax we are cutting it down from 2 mg 2.5 mg, discontinue [place] and patient is on seroquil agitation along with as needed Haldol. 07/13/2017 Patient is more awake and oriented today. Delirium improved. Patient is saturating well another cannula. No chest pain. No worsening short of breath. Patient is being transferred to medical floor today 07/14/2017 Patient is more awake and oriented today. With the status is much improved. No fever no chills. No cough or sputum production. No acute overnight issues. Delirium resolved. 07/15/2017 Patient was seen and examined. Breathing status much improved. Delirium resolved. No acute overnight issues . patient is stable to be transferred to rehab. Xanax is being tapered down. Currently at 0.5 mg 3 times a day when necessary. Delirium improved. patient was continued on IV steroids and DuoNeb's. Pulmicort 10 Perforomist was added. Patient did improve slowly. Patient was also on BiPAP while in the ICU. Patient had slightly elevated troponin on admission. 2-D echo was done and showed normal ejection fraction. Cardiology recommended medical management. Continued on O2 therapy. And antibiotics in the form of levofloxacin changed to cefuroxime. Patient was seen by pulmonary and cardiology patient did improve clinically and is stable to be discharged home with tapering steroid dose and antibiotics. Patient is being transferred to extended care facility. Patient was counseled extensively for smoking cessation. Constitutional: Denied any fatigue denied any fever. Cardio vascular: denied any chest pain, palpitations Gastrointestinal denied any nausea vomiting Pulmonary: Denied any shortness of breath cough Neurologic denied any new focal deficits discharge physical examination was done Total time taken greater than 35 minutes including 18 minutes for counseling and coordination of care. Patient Condition at Discharge: Stable Plan - Discharge Summary New Discharge Prescriptions: New ALPRAZolam [Xanax] 0.5 mg PO TID PRN #20 tab PRN Reason: Anxiety amLODIPine [Norvasc] 5 mg PO DAILY #30 tab Aspirin 81 mg PO DAILY #30 chew Atorvastatin [Lipitor] 10 mg PO HS #30 tab Cefuroxime [Ceftin] 500 mg PO BID #10 tab HYDROcodone/APAP 5-325MG [Aurora 5-325] 1 each PO Q6HR PRN #20 tab PRN Reason: Pain Ipratropium-Albuterol Nebulize [Duoneb 0.5 mg-3 mg/3 ml Soln] 3 ml INHALATION RT-Q4H PRN ampul.neb PRN Reason: Shortness Of Breath Or Wheezing Pantoprazole [Protonix] 40 mg PO AC-BRKFST #14 tablet. predniSONE See Taper PO DAILY #30 tab QUEtiapine [SEROquel] 50 mg PO HS #30 tab Continue Tiotropium [place] [Spiriva] 1 cap INHALATION RT-DAILY Albuterol Sulfate [Proair Hfa] 2 puff INHALATION RT-QID PRN PRN Reason: Shortness Of Breath Metoprolol Tartrate [Lopressor] 12.5 mg PO BID HYDROcodone/APAP 10-325MG [Aurora 10-325] 1 tab PO BID PRN PRN Reason: Pain Fluticasone/Vilanterol [Breo Ellipta 200-25 Mcg INH] 1 puff INHALATION RT- DAILY Discontinued Ibuprofen [Motrin] 800 mg PO TID PRN PRN Reason: Pain ALPRAZolam [Xanax] 2 mg PO DAILY PRN PRN Reason: Anxiety Discharge Medication List Albuterol Sulfate [Proair Hfa] 2 puff INHALATION RT-QID PRN 07/07/17 [History] HYDROcodone/APAP 10-325MG [Aurora 10-325] 1 tab PO BID PRN 07/07/17 [History] Metoprolol Tartrate [Lopressor] 12.5 mg PO BID 07/07/17 [History] Tiotropium [place] [Spiriva] 1 cap INHALATION RT-DAILY 07/07/17 [History] Fluticasone/Vilanterol [Breo Ellipta 200-25 Mcg INH] 1 puff INHALATION RT-DAILY 07/08/17 [History] ALPRAZolam [Xanax] 0.5 mg PO TID PRN #20 tab 07/15/17 [Rx] Aspirin 81 mg PO DAILY #30 chew 07/15/17 [Rx] Atorvastatin [Lipitor] 10 mg PO HS #30 tab 07/15/17 [Rx] Cefuroxime [Ceftin] 500 mg PO BID #10 tab 07/15/17 [Rx] HYDROcodone/APAP 5-325MG [Aurora 5-325] 1 each PO Q6HR PRN #20 tab 07/15/17 [Rx] Ipratropium-Albuterol Nebulize [Duoneb 0.5 mg-3 mg/3 ml Soln] 3 ml INHALATION RT -Q4H PRN ampul.neb 07/15/17 [Rx] Pantoprazole [Protonix] 40 mg PO AC-BRKFST #14 tablet.dr 07/15/17 [Rx] QUEtiapine [SEROquel] 50 mg PO HS #30 tab 07/15/17 [Rx] amLODIPine [Norvasc] 5 mg PO DAILY #30 tab 07/15/17 [Rx] predniSONE See Taper PO DAILY #30 tab 07/15/17 [Rx] Follow up Appointment(s)/Referral(s): Jazmyn De La Paz MD [STAFF PHYSICIAN] - 1 Week Hany Salmeron MD [Primary Care Provider] - 1-2 days Activity/Diet/Wound Care/Special Instructions: [facility] Care:[phone] Discharge Disposition: TRANSFER TO SNF/ECF
[2017-07-15 16:08] VITALS: BP 113/77; RESP 18; TEMP 98.2
[2017-07-15 16:10] VITALS: PULSE 90
== END 2017-07-15 18:04 | DRG 190 ==
LOC: EC 10:28 → 6SEL 12:45 → 6ICU 07-11 12:39 → 5MS5E 07-13 12:12
PROVIDERS: ADMIT Hospitalist; ATTEND Hospitalist
DX: J44.1 Chronic obstructive pulmonary disease with (acute) exacerbation (principal); J96.01 Acute respiratory failure with hypoxia; I21.4 Non-ST elevation (NSTEMI) myocardial infarction; G92 Toxic encephalopathy; E87.3 Alkalosis; E44.1 Mild protein-calorie malnutrition; I27.20 Pulmonary hypertension, unspecified; F05 Delirium due to known physiological condition; Z68.1 Body mass index [BMI] 19.9 or less, adult; I10 Essential (primary) hypertension; G89.29 Other chronic pain; F41.9 Anxiety disorder, unspecified; M54.2 Cervicalgia; M19.91 Primary osteoarthritis, unspecified site; F17.210 Nicotine dependence, cigarettes, uncomplicated; Z79.899 Other long term (current) drug therapy; Z86.73 Personal history of transient ischemic attack (TIA), and cerebral infarction without residual deficits; Z88.2 Allergy status to sulfonamides; Z91.041 Radiographic dye allergy status
CPT/HCPCS: 36415; 36600; 70496; 70498; 71010; 80048; 80053; 82550; 82553; 82805; 83036; 83735; 84100; 84132; 84484; 85025; 85027; 85610; 85730; 87040; 93005; 93306; 94640; 94644; 94660; 94760; 99291

== ENCOUNTER 2020-11-04 14:19 | Observation (INO) | payer MEDICARE ==
--- NOTE | 2020-11-04 15:06 | XR ---
EXAMINATION TYPE: XR wrist complete RT, XR hand complete RT DATE OF EXAM: 11/04/2020 CLINICAL HISTORY: pain TECHNIQUE: Frontal, lateral and oblique images of the right wrist are obtained. COMPARISON: None. FINDINGS: There is an impacted distal radial fracture with dorsal angulation seen and displacement of approxima tely 3 mm. There is also ulnar styloid fracture component seen. There is a remote fracture involving the fifth metacarpal. No additional fractures are seen. IMPRESSION: Distal radial and ulnar fractures as discussed above.
--- NOTE | 2020-11-04 15:51 | ED ---
Fall HPI - General Chief Complaint: Fall Stated Complaint: RT hand injury, Fall Time Seen by Provider: 11/04/20 14:39 Source: patient Mode of arrival: ambulatory - History of Present Illness Initial Comments: REFUSED ANY PAIN MEDICATIONS 65-year-old female presenting for follow-up last night. Patient states she fell off a chair last night extending her right wrist. Patient applied a wrist and hand pain. Patient denies any loss of sensation: Spell of the extremity she denies a shoulder elbow pain she denies any injury to her head neck or other areas of the body. Patient denies anticoagulation use. Patient states her hand was quite swollen and there is some bruising. Patient denies any limitation to range of motion of the digits. Patient states she does have increased pain with supination and pronation radiolucent system negative patient appears nontoxic in good spirits on arrival - Related Data Home Medications Medication Instructions Recorded Confirmed ALPRAZolam [Xanax] 1 mg PO TID 11/04/20 11/04/20 Ibuprofen [Motrin] 800 mg PO TID 11/04/20 11/04/20 Megestrol [Megace] 40 mg PO BID 11/04/20 11/04/20 Metoprolol Tartrate [Lopressor] 12.5 mg PO BID 11/04/20 11/04/20 Allergies Allergy/AdvReac Type Severity Reaction Status Date / Time Iodinated Contrast Media Allergy Unknown Verified 11/04/20 15:19 [Iodinated Contrast- Oral and IV Dye] iodine Allergy Unknown Verified 11/04/20 15:19 Sulfa (Sulfonamide Allergy Unknown Verified 11/04/20 15:19 Antibiotics) Review of Systems ROS Statement: Those systems with pertinent positive or pertinent negative responses have been documented in the HPI. ROS Other: All systems not noted in ROS Statement are negative. Past Medical History Past Medical History: COPD, CVA/TIA, Hypertension Additional Past Medical History / Comment(s): COPD, history of TIA, chronic neck pain secondary to degenerative arthritis, cachexia History of Any Multi-Drug Resistant Organisms: None Reported Past Surgical History: Section Additional Past Surgical History / Comment(s): Pt states she has had 3 eye surgeries to correct double vision, colonoscopy. Past Anesthesia/Blood Transfusion Reactions: No Reported Reaction Past Psychological History: Anxiety Smoking Status: Former smoker Past Alcohol Use History: None Reported Past Drug Use History: None Reported - Past Family History Father Family Medical History: Myocardial Infarction (IA) Additional Family Medical History / Comment(s): Father of a massive IA at the age of 6yrs Mother Family Medical History: Cancer Additional Family Medical History / Comment(s): Mother of lung cancer at the age of 64yrs. She was a smoker. General Exam - General Exam Comments Initial Comments: General: The patient is awake and alert, in no distress Eye: +3 mm pupils are equal, round and reactive to light, extra-ocular movements are intact. No nystagmus. There is normal conjunctiva bilaterally. No signs of icterus. Ears, nose, mouth and throat: There are moist mucous membranes and no oral lesions. Neck: The neck is supple, there is no tenderness or JVD. Cardiovascular: There is a regular rate and rhythm. No murmur, rub or gallop is appreciated. Respiratory: Lungs are clear to auscultation, respirations are non-labored, breath sounds are equal. No wheezes, stridor, rales, or rhonchi. Gastrointestinal: Soft, non-distended, non-tender abdomen without masses or organomegaly noted. There is no rebound or guarding present. Musculoskeletal: upon inspection of the wrist there is significant soft tissue swelling of the wrist as well as the hand there is ecchymosis at in addition to swelling. However, with a very soft and compressible. There do not appear to be rapidly expanding. Patient is no pain out of proportion with full sensation. Patient is able to make the okay fingers crossed thumbs-up and oppose the small digit and thumb no wrist drop is appreciated. Strength of digits is intact. Radial pulses equal bilaterally 2+. Neurological: A&O x 3. CN II-XII intact grossly, There are no obvious motor or sensory deficits. Coordination appears grossly intact. Speech is normal. Skin: Skin is warm and dry and no rashes or lesions are noted. Psychiatric: Cooperative, appropriate mood & affect, normal judgment. Limitations: no limitations Course Vital Signs 11/04/20 14:26 Temperature 98.4 F Pulse Rate 87 Respiratory 18 Rate Blood Pressure 145/88 O2 Sat by Pulse 96 Oximetry Medical Decision Making - Medical Decision Making 65yo presenting for fall. Dr. Magana evaluated pt in the ER. would like to admit for surgical repair tomorrow. pt iced/placed in sugar tong splint as discussed with consulting provider. patient agreeable to admission. Disposition Clinical Impression: Distal radius fracture, right, Distal end of ulna fracture, closed, Wrist pain, Fall Disposition: ADMITTED IP TO THIS [facility] Condition: Stable Instructions (If sedation given, give patient instructions): Wrist Fracture in Adults (ED) Is patient prescribed a controlled substance at d/c from ED?: No Referrals: Jazmyn De La Paz MD [Primary Care Provider] - 1-2 days Everardo Magana DO [Doctor of Osteopathic Medicine] - 1-2 days Time of Disposition: 16:32 Decision to Admit Reason: Admit from EC Decision Date: 11/04/20 Decision Time: 16:33
[2020-11-04] MEDS ORDERED: BENZOCAINE/MENTHOL LOZENG 1 EACH LOZENGE MUCOUS MEM PRN (16:44)
[2020-11-04] MEDS ORDERED: ALPRAZolam 0.25 MG TAB PO PRN (16:44)
[2020-11-04] MEDS ORDERED: traMADol 50 MG TAB PO PRN (16:44)
[2020-11-04] MEDS ORDERED: ONDANSETRON 4 MG/2 ML VIAL IVP PRN (16:44)
[2020-11-04] MEDS ORDERED: ACETAMINOPHEN TAB 325 MG TAB PO PRN (16:44)
[2020-11-04] MEDS ORDERED: NALOXONE 0.4 MG/ML 1 ML VIAL IV PRN (16:44)
--- NOTE | 2020-11-04 17:03 | P.HPOR ---
History of Present Illness H&P Date: 11/04/20 Chief Complaint: RUE pain 65-year-old female presents emergency department with right upper extremity and wrist pain. Patient states that yesterday she was on a chair when she tripped and fell onto her right wrist with immediate pain and discomfort in her wrist. She had immediate swelling as well as bruising as well. She notices deformity within her wrist. She has pain with motion of her wrist. She denies any numbness or tingling. She states that she can move all her fingers with good strength however just continue to be painful and when it was extremely bruised today when she got up she decided to come to the emergency department. 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 She states no numbness or tingling. No fevers chills shortness of breath or chest pain at this time. She had no blunt head trauma or loss of consciousness with the fall. Review of Systems 14 points review of systems completed and as stated in HPI, all other systems reviewed are negative. Past Medical History Past Medical History: COPD, CVA/TIA, Hypertension Additional Past Medical History / Comment(s): COPD, history of TIA, chronic neck pain secondary to degenerative arthritis, cachexia History of Any Multi-Drug Resistant Organisms: None Reported Past Surgical History: Section Additional Past Surgical History / Comment(s): Pt states she has had 3 eye surgeries to correct double vision, colonoscopy. Past Anesthesia/Blood Transfusion Reactions: No Reported Reaction Past Psychological History: Anxiety Smoking Status: Former smoker Past Alcohol Use History: None Reported Past Drug Use History: None Reported - Past Family History Father Family Medical History: Myocardial Infarction ([place]) Additional Family Medical History / Comment(s): Father of a massive [place] at the age of 6yrs Mother Family Medical History: Cancer Additional Family Medical History / Comment(s): Mother of lung cancer at the age of 64yrs. She was a smoker. Medications and Allergies Home Medications Medication Instructions Recorded Confirmed Type ALPRAZolam [Xanax] 1 mg PO TID 11/04/20 11/04/20 History Ibuprofen [Motrin] 800 mg PO TID 11/04/20 11/04/20 History Megestrol [Megace] 40 mg PO BID 11/04/20 11/04/20 History Metoprolol Tartrate [Lopressor] 12.5 mg PO BID 11/04/20 11/04/20 History Allergies Allergy/AdvReac Type Severity Reaction Status Date / Time Iodinated Contrast Media Allergy Unknown Verified 11/04/20 15:19 [Iodinated Contrast- Oral and IV Dye] iodine Allergy Unknown Verified 11/04/20 15:19 Sulfa (Sulfonamide Allergy Unknown Verified 11/04/20 15:19 Antibiotics) Physical Examination Osteopathic Statement: *. No significant issues noted on an osteopathic structural exam other than those noted in the History and Physical/Consult. Patient is alert and oriented 3 appears well-nourished well-hydrated is in no acute distress. They does not appear septic. On exam the patient has no tenderness to palpation of her thoracic or lumbar spine. There is no edema or ballottement sign. They have good strength in her lower extremities with 5 out of 5 dorsiflexion plantar flexion EHL and FHL bilaterally. Upper extremities show 5/5 strength in all major muscle groups. Her right upper extremity shows exquisite bruising over the dorsal aspect of the right distal radius. She has a deformity which is noted dorsally angulated. She has some swelling over the volar aspect of the wrist over it is not quite as bad as the dorsal. She has ecchymosis and edema in this area. She is able to move all fingers without any issues she is intact radial ulnar and median nerves bilaterally. She is intact sensation as well as motor. She has palpable pulses as well. There is FROM that is painless of the b/l UE and LE in all major joints. They are intact to light touch sensation in L2 to S1 nerve distribution. Patient has palpable dorsalis pedis was posterior tibial pulses. Compartments are soft and compressible. Patient shows a negative Homans, Kelly's, negative Babinski's negative clonus bilaterally. negative straight leg raise bilaterally. No tensioning signs.Cranial nerves II through XII are grossly intact. Overall alignment is well-maintained in the sagittal coronal planes. Results AP lateral and oblique views of the right wrist as well as hand are obtained and reviewed. His demonstrate a right distal radius fracture which is dorsally angulated with the dorsal comminution fragment. This is angulated approximately 20. There is a lunate facet fracture there is an intra-articular component to this fracture as well. Interarticular step-off is minimal however dorsal displacement is noted. There is a right ulnar styloid fracture as well which is small. Right hand shows no other fractures or dislocations. Right forearm films are pending Assessment and Plan Assessment: 65-year-old female status post fall from standing right distal radius fracture displaced comminuted and dorsally angulated closed, initial encounter in the emergency department Plan: I discussed options with the patient as far surgical and nonsurgical options. Due to the interarticular component as well as displacement of the fracture would recommend surgical fixation of this fracture. This will allow her to gain motion back quicker. She agreed to this. We will admit her to the hospital with plans for ORIF of the right distal radius tomorrow 11/05/2020. Will ask medicine to see and evaluate the patient and cleared her for surgery due to her history of COPD. Chest x-ray basic labs and forearm x-rays are currently pending. Orthopedic Surgery Risk Review Silva Urbina is a 55-year-old female presenting for evaluation of sudden onset admitted wrist pain, inability to bear weight after a fall from standing. It was my pleasure to have seen and examined Silva Urbina. In our visit today we have had a chance to go over subjective complaints, physical examination findings and treatments including the natural course history without intervention and various interventional options. her imaging demonstrates right distal radius fracture comminuted intra-articular displaced closed. On physical exam, Silva Urbina demonstrates pain with motion of right wrist along with pain and swelling and ecchymosis around the right wrist dorsal aspect as well as the volar aspect, which is NV intact at this time. I have explained to the patient that this fracture needs stabilization. Based on the patients imaging, physical exam, and the rapid progression and disabling nature of her symptoms, at this time I recommend surgery in the form or a: ORIF right distal radius I discussed the risk and benefits of this procedure at length with Silva Urbina and her who is in the room with her at the time. Questions were invited and answered, and the patient wishes to proceed as outlined below. Currently, I am recommendin. Open reduction and internal fixation of right distal radius fracture with plate and screws 2. Review of surgical risks and benefits as well as an educational packet on the proposed surgical procedure. Risks: All surgical procedures come with inherent risks, including those related to positioning, anesthesia, intraoperative findings, and postoperative complications. It is important to understand that surgery does not come with any guarantee of a successful outcome as complications and adverse events are always possible. The patient was given a handout discussing the surgical procedure and risks associated with the intervention, both of which were discussed with the patient. These risks include but are not limited to the following: - Experiencing same, different or even worse symptoms compared to before surgery. - Requiring further surgery or other forms of treatment presently or at some time in the future . - On an extreme but fortunately relatively rare basis severe complication such as blindness, stroke, heart attack, temporary and/or permanent nerve inj ury, paralysis, coma, or may occur, sometimes without known explanation. - Surgical complications may include but are not limited to risk of infection, fluid accumulation in the surgical dissection site, including a seroma or hematoma, that requires additional surgery, wound drainage, bleeding, new numbness or weakness, vision changes/loss, spinal fluid leakage, non-healing and/or infected incision, headaches, difficulty or inability to swallow, hoarseness, hemopneumothorax, pneumothorax, injury to nerves, spinal cord, blood vessels, lymphatics or other vital organs (i.e., bowel injury, injury to the great vessels); heterotopic bone formation; complications related to the hardware such as screws, rods, including misplaced hardware, device failure, hardware fracture/breakage, or hardware loosening; retained surgical instrumentations or devices and the need for further surgery. - Medical risks of the planned surgery include but are not limited to generalized Infections to the whole body or local areas outside of the surgical site (sepsis), heart attack, bleeding, anaphylaxis, meningitis, seizure, epilepsy, hearing loss, burn mckeon, laceration of the head or other areas of the body, bruising, hypersensitivity of the skin, bladder over distension; allergic reaction; shoulder injury related to positioning; fat, blood and air clots to other areas of the body like heart, lungs, brain; failure of internal organs such as lungs, kidneys, liver and excessive bleeding. If blood transfusions are necessary, note that transfusions may cause intolerance reactions such as anaphylaxis or other complex reactions. Despite best efforts, the results of surgery might not heal in terms of bone, soft tissues such as skin, fascia, ligaments, and joints. [facility] is an educational center that serves as a training facility for physician assistants, nurses, orthopedic residents and fellows. Residents are physicians who are completing their surgical intensive training following medical school. They assist in the operating room with direct supervision of the attending surgeons. [place] are surgeons who have completed their training and eligible for board certification. They have opted for an elective year of more specialized training in their field. They assist in the operating room under the supervision of the attending surgeons. Physician assistants are medically trained surgical providers who function in the outpatient, inpatient, and operating room setting under the direct supervision of the attending surgeon. [facility] has multiple operating rooms with single and overlapping rooms running daily. They currently function under the required guidelines as produced by the [facility] Finance Committee with regards to the overlapping rooms and will continue to comply with changes to this policy as they occur. The requirements include and are complied with as follows: (1) the critical portions of the overlapping rooms will not occur at the same time, (2) the attending physician will be physically present during the critical portions of the procedure and immediately available during the entire case, and (3) a back-up attending is designated should the primary attending not be immediately available. The patient has had a chance to review all the listed information, has been given print outs detailing this information, and has had all his/her questions answered to their satisfaction. It was my pleasure to have seen and examined Silva Urbina. In our visit today we have had a chance to go over my understanding of our patient's current condition, the natural course history without intervention and various interventional options. Questions were invited and answered, and the patient wishes to proceed as outlined above. I have seen and examined the patient for 25 minutes and we have spent more than 50% of the time in repeat and detailed counseling about the patient's condition, its natural course history with out and as much as can be predicted with surgery and re-review of various surgical treatment options. In conclusion, Silva Urbina and her requested we proceed with the above suggested surgery and are willing to accept risks and limitations of the suggested surgery as nature of the disease process and our best attempts at treatment for the condition. Thank you again for allowing us to be part of your patient's care. Please don't hesitate to contact me if you have any further questions. Signed and authenticated by: Everardo Magana DO [facility] [address] [address] Time with Patient: Greater than 30
--- NOTE | 2020-11-04 17:33 | XR ---
EXAMINATION TYPE: XR chest 1V DATE OF EXAM: 11/04/2020 COMPARISON: 08/09/2017 HISTORY: COPD. Preoperative evaluation. TECHNIQUE: Single frontal view of the chest is obtained. FINDINGS: There is no focal air space opacity, pleural effusion, or pneumothorax seen. There is back ground of COPD. The cardiac silhouette size is within normal limits. The osseous structures are wit hout acute abnormality. Stable sclerotic geographic lesion within the right proximal humerus without aggressive features, dating back to 2017 and may represent bone island in the absence of known malign poonam. IMPRESSION: No acute process.
--- NOTE | 2020-11-04 17:37 | XR ---
RESULT: HISTORY: fracture TECHNIQUE: 2 views of the right forearm were obtained. COMPARISON: Earlier same day. FINDINGS: There is interval splinting of the distal radius diametaphysis and ulnar styloid process fractures. F racture alignment is near anatomic. IMPRESSION: Distal radius and ulnar styloid process fractures status post splinting.
[2020-11-04] MEDS: IBUPROFEN 800 MG TAB PO SCH (22:39)
[2020-11-04] MEDS: METOPROLOL TARTRATE 12.5 MG TAB PO SCH (22:41)
[2020-11-04] MEDS: SODIUM CHLORIDE 0.9% 1,000 ML IV SCH (22:41)
[2020-11-04 23:07] LABS: Basophils % (A) 0 %; Eosinophils # (A) 0.1 k/uL (0-0.7); Eosinophils % (A) 2 %; HCT 39.9 % (34.0-46.0); HGB 13.3 gm/dL (11.4-16.0); Lymphocytes # (A) 1.6 k/uL (1.0-4.8); Lymphocytes % (A) 24 %; MCHC 33.2 g/dL (31.0-37.0); MCV 93.4 fL (80.0-100.0); Mean Platelet Volume 6.8; Monocytes # (A) 0.5 k/uL (0-1.0); Monocytes % (A) 7 %; Neutrophils # (A) 4.3 k/uL (1.3-7.7); Neutrophils % (A) 66 %; Platelet Count 323 k/uL (150-450); RBC 4.28 m/uL (3.80-5.40); RDW 13.3 % (11.5-15.5); WBC 6.6 k/uL (3.8-10.6)
[2020-11-04 23:09] LABS: African American GFR (CKD) 83 (>60 ml/min/1.73 sqM); Anion Gap 11 mmol/L; Blood Urea Nitrogen 10 mg/dL (7-17); Calcium 9.7 mg/dL (8.4-10.2); Carbon Dioxide 24 mmol/L (22-30); Chloride 107 mmol/L (98-107); Glucose 84 mg/dL (74-99); Non-African American GFR(CKD) 72 (>60 ml/min/1.73 sqM); Potassium 3.7 mmol/L (3.5-5.1); Sodium 142 mmol/L (137-145)
[2020-11-04] MEDS: MEGESTROL 40 MG TAB PO SCH (23:26)
[2020-11-05] MEDS ORDERED: HEPARIN SODIUM,PORCINE 5,000 UNIT/ML 1 ML VIAL SQ SCH
[2020-11-05] MEDS: MEGESTROL 40 MG TAB PO SCH (08:57)
[2020-11-05] MEDS: IBUPROFEN 800 MG TAB PO SCH (08:57)
[2020-11-05] MEDS ORDERED: FAMOTIDINE 20 MG/2 ML VIAL IV SCH (09:00)
[2020-11-05] MEDS: METOPROLOL TARTRATE 12.5 MG TAB PO SCH (09:00)
[2020-11-05 09:46] LABS: African American GFR (CKD) 68.5 (60.0-200.0); Anion Gap 6.8 mmol/L (4.00-12.00); Calcium 9.1 mg/dL (8.7-10.3); Carbon Dioxide 26.2 mmol/L (21.6-31.8); Non-African American GFR(CKD) 59.1 (60.0-200.0); Potassium 3.8 mmol/L (3.5-5.5)
[2020-11-05 09:47] LABS: Basophils # (A) 0.03 X 10*3/uL (0.00-0.10); Basophils % (A) 0.6 %; Eosinophils # (A) 0.14 X 10*3/uL (0.04-0.35); Eosinophils % (A) 2.9 %; HCT 38.5 % (37.2-46.3); HGB 12.5 g/dL (12.0-15.0); Lymphocytes # (A) 1.58 X 10*3/uL (0.90-5.00); Lymphocytes % (A) 32.4 %; MCH 30.8 pg (27.0-32.0); MCHC 32.5 g/dL (32.0-37.0); MCV 94.8 fL (80.0-97.0); Mean Platelet Volume 9.4 fL (9.5-12.2); Monocytes # (A) 0.43 X 10*3/uL (0.20-1.00); Monocytes % (A) 8.8 %; Neutrophils # (A) 2.69 X 10*3/uL (1.80-7.70); Neutrophils % (A) 55.1 %; Platelet Count 306 X 10*3/uL (140-440); RBC 4.06 X 10*6/uL (4.10-5.20); RDW 13.4 % (11.5-14.5); WBC 4.88 X 10*3/uL (4.50-10.00)
--- NOTE | 2020-11-05 10:08 | P.PN ---
Progress Note - Text Progress Note Date: 11/05/20 CC: Right wrist pain Subjective: Seen and examined doing well this morning. Splint in place. She asked for some ice was given it. She has been elevating it. No numbness or tingling and no change in her exam. The patient's past medical history; past surgical history; family history; medicines; allergies and social history have been reviewed and are as stated elsewhere in the chart. 14 points review of systems completed and as stated in HPI, all other systems reviewed are negative. PHYSICAL EXAM: Splint in place. Some ecchymosis on the back of her hand and fingers swelling has not increased. Sensation is in touch C5 to T1 soft Refill is brisk at less than 2 seconds all fingers can move all fingers ASSESSMENT: 1. Right distal radius fracture displaced, comminuted, closed 2. Status post fall from standing PLAN: -Nothing by mouth -Nonweightbearing -Pain control as needed -Medicine clearance for surgery today
[2020-11-05 11:04] LABS: INR 1.09 (0.90-1.11); Prothrombin Time 11.8 sec (9.9-11.9)
--- NOTE | 2020-11-05 12:47 | P.CONS ---
History of Present Illness - History of Present Illness This is a pleasant 65 years old female with past medical history of COPD, CVA /TIA, chronic neck pain secondary to degenerative arthritis, hypertension, anxiety. She is a patient of Dr. Salmeron. Patient states that she fell at home while she was standing on a kitchen chair her get trapped and she landed on her right outstretched arms because she wanted protect her hips. She denies chest pain or dizziness or syncope at that time or currently. She has COPD and follows up with Dr. moore. She states that she has chronic dyspnea and it is worse over the last 2.5 weeks whenever she walks S she estimated until the hallway from her hospital bed. But when I walked the patient like double this distance [id number] she was not dyspneic and wheezing. She denies coughing. No phlegm. No headache. No weakness or numbness. No chest pain. No nausea vomiting or diarrhea. Denies any urinary symptoms or diarrhea Right forearm pain is controlled. She quit smoking in 2017 when she had a severe episode of COPD exacerbation that she wanted the ICU oriented with BiPAP and discharged to rehab at that time. She is not smoking currently. She denies alcohol or illicit drugs. 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 She is not on home oxygen or steroids. Vitals are stable, blood pressure 152/85. Labs including CBC and BMP are unremarkable Coronal virus not detected. Chest x-ray: No acute process. There is background of COPD. right forearm and wrist x-ray: Distal radius and ulnar styloid process fractures, status post splinting, with mild displacement of 3 mm on admission patient received cefazolin time 1 Review of Systems CONSTITUTIONAL: No fever, no malaise, no fatigue. HEENT: No recent visual problems or hearing problems. Denied any sore throat. CARDIOVASCULAR: No orthopnea, PND, no palpitations, no syncope. PULMONARY: No shortness of breath, no cough, no hemoptysis. GASTROINTESTINAL: No diarrhea, no nausea, no vomiting, no abdominal pain. Normoactive bowel sounds. NEUROLOGICAL: No headaches, no weakness, no numbness. HEMATOLOGICAL: Denies any bleeding or petechiae. GENITOURINARY: Denies any burning micturition, frequency, or urgency. MUSCULOSKELETAL/RHEUMATOLOGICAL: Denies any joint pain, swelling, or any muscle pain. As above ENDOCRINE: Denies any polyuria or polydipsia. Past Medical History Past Medical History: COPD, CVA/TIA, Hypertension Additional Past Medical History / Comment(s): COPD, history of TIA, chronic neck pain secondary to degenerative arthritis, cachexia History of Any Multi-Drug Resistant Organisms: None Reported Past Surgical History: Section Additional Past Surgical History / Comment(s): Pt states she has had 3 eye surgeries to correct double vision, colonoscopy. x2 Past Anesthesia/Blood Transfusion Reactions: No Reported Reaction Past Psychological History: Anxiety Additional Psychological History / Comment(s): Pt resides with her spouse. She is independent. Smoking Status: Former smoker Past Alcohol Use History: None Reported Additional Past Alcohol Use History / Comment(s): Pt states she started smoking in 1977 and is a ppd smoker. Past Drug Use History: None Reported - Past Family History Father Family Medical History: Myocardial Infarction ([place]) Additional Family Medical History / Comment(s): Father of a massive [place] at the age of 6yrs Mother Family Medical History: Cancer Additional Family Medical History / Comment(s): Mother of lung cancer at the age of 64yrs. She was a smoker. Medications and Allergies Home Medications Medication Instructions Recorded Confirmed Type ALPRAZolam [Xanax] 1 mg PO TID 11/04/20 11/04/20 History Ibuprofen [Motrin] 800 mg PO TID 11/04/20 11/04/20 History Megestrol [Megace] 40 mg PO BID 11/04/20 11/04/20 History Metoprolol Tartrate [Lopressor] 12.5 mg PO BID 11/04/20 11/04/20 History Allergies Allergy/AdvReac Type Severity Reaction Status Date / Time Iodinated Contrast Media Allergy Unknown Verified 11/04/20 15:19 [Iodinated Contrast- Oral and IV Dye] iodine Allergy Unknown Verified 11/04/20 15:19 Sulfa (Sulfonamide Allergy Unknown Verified 11/04/20 15:19 Antibiotics) Physical Exam Vitals: Vital Signs Temp Pulse Pulse Resp BP BP Pulse Ox 11/05/20 07:49 98.1 F 84 14 127/82 94 L 11/05/20 01:53 85 18 11/04/20 20:00 98.1 F 87 18 176/82 96 02/08/21 18:27 79 18 152/85 98 11/04/20 18:10 98.1 F 87 18 176/82 96 11/04/20 14:26 98.4 F 87 18 145/88 96 Intake and Output 11/04/20 11/05/20 11/05/20 22:59 06:59 14:59 Intake Total 700 160 Balance 700 160 Intake: Intake, IV Titration 160 160 Amount Sodium Chloride 0.9% 1, 160 160 000 ml @ 20 mls/hr IV . Q24H [facility] Rx#:[id number] Oral 540 Other: Voiding Method Toilet Toilet # Voids 2 1 Weight 53.977 kg GENERAL: The patient is alert and oriented x3, not in any acute distress. Well developed, well nourished. HEENT: Pupils are round and equally reacting to light. EOMI. No scleral icterus. No conjunctival pallor. Normocephalic, atraumatic. No pharyngeal erythema. No thyromegaly. CARDIOVASCULAR: S1 and S2 present. No murmurs, rubs, or gallops. PULMONARY: Chest is clear to auscultation, no wheezing or crackles. ABDOMEN: Soft, nontender, nondistended, normoactive bowel sounds. No palpable organomegaly. MUSCULOSKELETAL: No joint swelling or deformity. -EXTREMITIES: No cyanosis, clubbing, or pedal edema. Right forearm is with splint and surgical dressing. Right fingers are blue color with normal movements and sensation NEUROLOGICAL: Gross neurological examination did not reveal any focal deficits. SKIN: No rashes. No petechiae Results CBC & Chem 7: 11/05/20 04:40 11/05/20 04:40 Labs: Abnormal Lab Results - Last 24 Hours (Table) 11/05/20 11/05/20 Range/Units 04:40 04:40 RBC 4.06 L (4.10-5.20) X 10*6/uL MPV 9.4 L (9.5-12.2) fL Est GFR (CKD-EPI)NonAf 59.1 L (60.0-200.0) BUN/Creatinine Ratio 10.00 L (12.00-20.00) Ratio Assessment and Plan Assessment: Acute impacted Right radius and ulnar fracture secondary to a fall from a kitchen chair History of COPD, not an active fissure. Currently patient is asymptomatic History of TIA Chronic neck pain secondary to degenerative arthritis History of hypertension Anxiety, not in activation Plan: this is a pleasant 65 years old female who presents with right radius/ulnar sty loid process fractures with mild displacement. Continue with pain management. primary orthopedic team are planning for surgical intervention with open reduction and internal fixation. Patient had some risks from surgery however there is no absolute contraindication for the surgery and patient fractures need to be addressed and fixed Continue same treatment. Continue with symptomatic treatment. Resume home medication. Monitor lytes and vitals. DVT and GI prophylaxis. Further recommendations depends on the clinical course of the patient DVT prophylaxis: as per primary surgery team GI Prophylaxis: Pepcid PT/OT: Pending Prognosis is guarded Thank you for consulting us, we will follow up with the patient
[2020-11-05] MEDS: SODIUM CHLORIDE 0.9% 1,000 ML IV SCH ×2 (14:33→15:09)
[2020-11-05] MEDS ORDERED: MIDAZOLAM 2 MG/2 ML VIAL ONE (15:04)
[2020-11-05] MEDS ORDERED: PROPOFOL 10 MG/ML 20 ML VIAL IV ONE (15:04)
[2020-11-05] MEDS ORDERED: SUCCINYLCHOLINE CHLORIDE 100 MG/5 ML SYR IV ONE (15:04)
[2020-11-05] MEDS ORDERED: fentaNYL (PF) 50 MCG/ML 2 ML AMP ONE (15:04)
[2020-11-05] MEDS ORDERED: ROPIVACAINE 5 MG/ML 30 ML VIAL ONE (15:04)
[2020-11-05] MEDS ORDERED: HYDROmorphone (PF) 1 MG/ML ONE (15:04)
[2020-11-05] MEDS ORDERED: LIDOCAINE 1% INJ 10MG/ML (20 ML MDV) ONE (15:04)
[2020-11-05] MEDS ORDERED: SODIUM CHLORIDE 0.9% 100 ML with ceFAZolin 2,000 MG IV ONE ×2 (15:09)
[2020-11-05 15:29] VITALS: BMI 18.6
[2020-11-05] MEDS ORDERED: BUPIVACAINE (PF) 0.25% 30 ML VIAL SQ ONE ×2 (15:41)
[2020-11-05] MEDS ORDERED: LACTATED RINGERS 1,000 ML IV ONE (16:15)
[2020-11-05] MEDS ORDERED: ceFAZolin 1,000 MG in SODIUM CHLORIDE 0.9% 1,000 ML IRRIGATION ONE (16:21)
--- NOTE | 2020-11-05 16:57 | P.OP ---
Date of Procedure: 11/05/20 Preoperative Diagnosis: Right distal radius fracture, closed, comminuted, displaced Postoperative Diagnosis: Same Procedure(s) Performed: Open reduction with plate fixation of the Right distal radius Implants: Arthrex three hole locking distal radius plate, RIGHT narrow Anesthesia: PHANA Surgeon: Everardo Magana Catalyst Operator Chief #1: Stuart Ttae (PA was present for the entire case and was necessary due to the complexity of the case. ) Estimated Blood Loss (ml): 10 IV fluids (ml): 1,000 Urine output (ml): 0 Pathology: none sent Condition: stable Disposition: PACU Indications for Procedure: 65-year-old female presented to emergency department today after she had a fall off of a chair onto her right wrist. She cleaned of increased pain and instability and bruising and swelling of her right wrist. She complained of continual pain that was just not getting better and so she decided be seen. 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 She denies any numbness or tingling she stated exquisite pain in her right wrist with any motion. She denied any other issues no blunt head trauma no loss consciousness with the fall. She is found of a right distal radius fracture that was closed displaced comminuted at this time. She was splinted in the emergency department and admitted to observation unit for open reduction internal fixation. I discussed this with her and her in the emergency department they agreed to the admission as well as the surgical intervention. Operative Findings: Acute closed displaced comminuted distal radius fracture on the right Description of Procedure: The patient was seen and examined in the preoperative area. All preoperative protocols were followed. Informed consent was obtained risks and benefits of the procedure were discussed at length. Risks including bleeding infection damage to the surrounding tissue and risk of reoperation were discussed with the patient. Risk of anesthesia up to and including was a discussed with the patient. These are outlined in the risk reviewed. They were willing to accept these risks and all of the risks of surgery. The patient was given a weight- based dose of antibiotics in the form of 2 g Ancef IVPB 1 preoperative. The patient was seen and evaluated by the anesthesia team who deemed them fit for surgery. The site was marked, the patient was willing to proceed with the procedure. The patient was transferred to the operative suite by the Department of anesthesia. There were then drifted off to sleep by the department of anesthesia and general endotracheal intubation anesthesia was used. Once adequate anesthesia had been obtained the patient was carefully transferred to the operative bed. All bony prominences were padded accordingly. SCDs were placed on the nonoperative lower extremities. Arms were well padded. Right arm was exposed. Tourniquet was placed on the right upper arm and well- padded. The patient's right arm was placed in the arm board which was secured to the table. She was secured to her gurney with a safety strap. 10:15 was placed on the patient's right upper arm as well. Preoperative briefing was done with the operative team and everyone was ready for the procedure to start. The patients right arm was then prepped and draped in the normal sterile fashion. Timeout was then performed and all parties in agreement with the procedure to be performed. Skin marker was used to dannielle out a standard volar Deonte approach. Patient's arm was then exsanguinated with Esmarch and tourniquet was inflated 250 mmHg. Esmarch was removed skin incision was made blunt dissection was taken down to the FCR sheath. Inside knife was used to incise this this was then retracted medially and the deep tendon sheath was incised to expose the flexor tendons as well as the pronator quadratus. This is identified with lateral was placed for retraction and protection of the medial structures. L-shaped pronator incision was then made with inside knife and a [place] elevator is used to elevate this off the bone. It was also used to remove the pronator from the's place fracture fragment. Distal radius fracture was identified and was cleaned and reduced using a [place] as well as manual traction. Once a reduced position a radial styloid pin was placed under fluoroscopic guidance. This allowed for good reduction and hold the fracture appropriately. Appropriate sized plate was then selected Arthrex 3-hole distal locking radius plate was selected and a narrow plate was placed due to the patient's size. This was pinned into place and confirmed to be in good position on AP and lateral fluoroscopy. Once in position the distal row was drilled and smooth locking pegs were placed into the distal row. The proximal variable shaft screw was then selected and placed and this was drilled. A nonlocking screw was placed in here which was able to reduce the fracture and reduce the plate to the bone. The proximal distal row was then drilled and a combination of locking threaded and locking smooth pins were placed in this. The remainder shaft screws were then drilled a locking screw was placed in the distal shaft screw in a nonlocking was placed in the proximal shaft screw. AP and lateral fluoroscopy as well as 30 lateral confirmed good placement of screws no intra-articular involvement or violation and reduction of the fracture. The wrist was then tested and flexion-extension was holding stable. Tourniquet was deflated. Meticulous hemostasis performed The wound was then copiously irrigated with normal sterile saline. The subcu was then closed with 3-0 Vicryl simple fashion and a running 5-0 nylon stitch was placed in the skin. The wound was then cleaned and dressed with sterile Adaptic 4 x 4 web roll and she was placed in a volar splint. This is overwrapped with an [place] wrap. The patient was then transferred back to their hospital bed. There were awakened by department of anesthesia having tolerated the procedure very well with no complications. The patient was then transported to the postoperative care unit in stable condition.
--- NOTE | 2020-11-05 17:58 | P.ANPRN ---
Procedure Note - Anesthesia - Nerve Block Performed Right Infraclavicular Single Time Out Performed: Yes Date of Procedure: 11/05/20 Procedure Start Time: 16:51 Procedure Stop Time: 16:55 Location of Patient: Phase I Indication: Acute Post-Operative Pain, Dx/Pain Location, Requested by Surgeon Sedation Type: Awake Preparation: Sterile Prep Position: Supine Catheter: None Needle Types: Pajunk Needle Gauge: 21 Ultrasound used to visualize needle placement: Yes Ultrasound used to observe medication spread: Yes Injectate: 0.5% Ropivacaine (see comment for volume) Blood Aspirated: No Pain Paresthesia on Injection Noted: No Resistance on Injection: Normal Image Stored and Saved: Yes Events: Uneventful and Well Tolerated
[2020-11-05 19:45] VITALS: BP 123/78; PULSE 75; RESP 17; TEMP 98.4
--- NOTE | 2020-11-06 09:59 | FL ---
EXAMINATION TYPE: FL guidance operating room, XR wrist limited RT DATE OF EXAM: 11/05/2020 COMPARISON: NONE HISTORY: 65 year-old female right wrist ORIF FINDINGS: Images during intraoperative fluoroscopy with volar plate and screw fixation of the distal radius. FLUOROSCOPY Fluoroscopy time of 1 minute 14 seconds was used during right wrist ORIF. 5 image/s document/s the p rocedure. IMPRESSION: Intraoperative fluoroscopy as above.
--- NOTE | 2020-11-06 11:04 | P.DS ---
Providers Date of admission: 11/04/20 17:14 Expected date of discharge: 11/05/20 Attending physician: Everardo Magana DO Consults: 11/04/20 21:29 Consult Physician Routine Consulting Provider: Sandra Weiss Consult Reason/Comments: Medical Management, surgical clearance Do you want consulting provider notified?: Yes Primary care physician: [facility] Course: Date of admission: 11/04/2020 Date of discharge: 11/05/2020 Admission diagnosis: Displaced and comminuted right distal radius fracture Discharge diagnosis: Status post ORIF right distal radius fracture Attending physician: Dr. Magana Surgical procedures: Open reduction internal fixation right distal radius fracture Brief history: Patient is a 65-year-old female who presented to [facility] on 11/04/2020 after injuring her right wrist. It was determined she had a displaced and comminuted right distal radius fracture. I was contacted by the emergency room staff, I was able to review the images case with my attending Dr. Magana. Patient was admitted under orthopedic care with plan for likely surgical intervention. Consults were placed for medical management and clearance before surgery. She was scheduled for surgery on 11/05/2020. Hospital course: Details of patient's surgery can be found in operative report. Patient tolerated the procedure well and was subsequently transported to orthopedic floor. Patient was noted to have a relatively uneventful postoperative course. Patient reported satisfactory pain control with oral pain medications by postoperative day 0. Patient showed satisfactory progress with physical therapy. Patient moved steadily through the program and had no difficulty meeting the goals by postoperative day 0. Given patient's otherwise satisfactory course and having met physical therapy goals, plan is to discharge patient home on postoperative day 0. Discharge condition/disposition: Patient will be discharged home in stable condi tion. Discharge medications: Instructions are given on resumption of patient's normal daily medications per primary care recommendation, in addition patient will be prescribed Wiggins 7.5 mg/325 mg. Discharge instructions: 1. Pain medication as needed 2. [id number]-zxukoky Tylenol or Motrin as needed 3. Elevate and ice the extremity often 4. Do not remove the splint 5. Keep splint covered and dry while showering 6. Avoid excessive use of the right upper extremity 7. Plan for [facility] with [facility]. Magana in 2 weeks, please contact the office with any questions Procedures: Open reduction internal fixation right distal radius fracture Patient Condition at Discharge: Good Plan - Discharge Summary Discharge Rx Participant: No New Discharge Prescriptions: New HYDROcodone/APAP 7.5-325MG [Wiggins 7.5] 1 each PO Q6HR PRN #28 tab PRN Reason: Pain No Action Metoprolol Tartrate [Lopressor] 12.5 mg PO BID Megestrol [Megace] 40 mg PO BID Ibuprofen [Motrin] 800 mg PO TID ALPRAZolam [Xanax] 1 mg PO TID Discharge Medication List ALPRAZolam [Xanax] 1 mg PO TID 11/04/20 [History] Ibuprofen [Motrin] 800 mg PO TID 11/04/20 [History] Megestrol [Megace] 40 mg PO BID 11/04/20 [History] Metoprolol Tartrate [Lopressor] 12.5 mg PO BID 11/04/20 [History] HYDROcodone/APAP 7.5-325MG [Wiggins 7.5] 1 each PO Q6HR PRN #28 tab 11/05/20 [Rx] Follow up Appointment(s)/Referral(s): Jazmyn De La Paz MD [Primary Care Provider] - 1-2 days Everardo Magana DO [Doctor of Osteopathic Medicine] - 2 Weeks Patient Instructions/Handouts: Wrist Fracture in Adults (ED) Activity/Diet/Wound Care/Special Instructions: Discharge instructions: 1. Pain medication as needed 2. Kgio-fjg-kpmnjie Tylenol or Motrin as needed 3. Do not remove the splint 4. Keep the splint covered and dry while showering 5. Plan for follow-up at [facility] [address] Magana, contact office with any questions Discharge Disposition: HOME SELF-CARE
== END 2020-11-05 19:30 | disposition home or self-care (01) ==
LOC: EC 14:19 → 6NMEDSUR 17:14
PROVIDERS: ADMIT Orthopaedic Surgery; ATTEND Orthopaedic Surgery
DX: S52.501A Unspecified fracture of the lower end of right radius, initial encounter for closed fracture (principal); J44.9 Chronic obstructive pulmonary disease, unspecified; S52.611A Displaced fracture of right ulna styloid process, initial encounter for closed fracture; I10 Essential (primary) hypertension; M47.812 Spondylosis without myelopathy or radiculopathy, cervical region; F41.9 Anxiety disorder, unspecified; Z86.73 Personal history of transient ischemic attack (TIA), and cerebral infarction without residual deficits; Z87.891 Personal history of nicotine dependence; Z79.1 Long term (current) use of non-steroidal anti-inflammatories (NSAID); Z79.899 Other long term (current) drug therapy; Z91.041 Radiographic dye allergy status; Z88.2 Allergy status to sulfonamides; Z91.048 Other nonmedicinal substance allergy status; W07.XXXA Fall from chair, initial encounter; Y92.009 Unspecified place in unspecified non-institutional (private) residence as the place of occurrence of the external cause; Z82.49 Family history of ischemic heart disease and other diseases of the circulatory system; Z80.1 Family history of malignant neoplasm of trachea, bronchus and lung; Z20.822 Contact with and (suspected) exposure to COVID-19
CPT/HCPCS: 25608; 29125; 99285; 93005; 64415; 76942; 80048 ×2; 85025 ×2; 85610; 87635; 73090; 73100; 73110; 73130; 71045; G0378 ×2; C1713; J2250; J1644; J2405; J0690; J2001; S0179; J3010; J1170; J2795; J0330; J2704

== ENCOUNTER 2023-12-19 17:37 | Inpatient (IN) | payer MEDICARE ==
--- NOTE | 2023-12-19 18:05 | ED ---
General Adult HPI - General Source: patient Mode of arrival: ambulatory Limitations: no limitations <Tee Clifton - Last Filed: 12/19/23 18:05> <Damien Brown - Last Filed: 12/19/23 20:59> - General Chief complaint: Shortness of Breath Stated complaint: SOB Time Seen by Provider: 12/19/23 18:00 - History of Present Illness Initial comments: 60-year-old female with a past medical history significant for COPD presenting to the ED with a chief complaint of shortness of breath. Reports over the past few days has been short of breath especially with exertion. Patient does not normally use home O2. Patient also describes a pressure in her chest over the past few days as well however currently reports that this is resolved. (Tee Clifton) I did review and agree with the above note patient did complain of shortness of breath which has gotten worse over the last 2 weeks. She initially had an illness with some diarrhea couple weeks ago with fever at that time she has nonproductive cough no chest pain but does get exertional dyspnea orthopnea. No palpitations. No overt chest discomfort on my examination though she states she believes she has some discomfort because of anxiety from not being able to breathe. No pain at this time. She does have a history of COPD as stated. (Damien Brown) - Related Data Home Medications Medication Instructions Recorded Confirmed ALPRAZolam [Xanax] 1 mg PO TID 11/04/20 11/04/20 Ibuprofen [Motrin] 800 mg PO TID 11/04/20 11/04/20 Megestrol [Megace] 40 mg PO BID 11/04/20 11/04/20 Metoprolol Tartrate [Lopressor] 12.5 mg PO BID 11/04/20 11/04/20 Previous Rx's Medication Instructions Recorded HYDROcodone/APAP 7.5-325MG [[place] 1 each PO Q6HR PRN #28 tab 11/05/20 7.5] Allergies Allergy/AdvReac Type Severity Reaction Status Date / Time Iodinated Contrast Media Allergy Unknown Verified 11/04/20 15:19 [Iodinated Contrast- Oral and IV Dye] iodine Allergy Unknown Verified 11/04/20 15:19 Sulfa (Sulfonamide Allergy Unknown Verified 11/04/20 15:19 Antibiotics) Review of Systems ROS Other: All systems not noted in ROS Statement are negative. <Tee Clifton - Last Filed: 12/19/23 18:05> ROS Other: All systems not noted in ROS Statement are negative. <Damien Brown - Last Filed: 12/19/23 20:59> ROS Statement: Those systems with pertinent positive or pertinent negative responses have been documented in the HPI. Past Medical History Past Medical History: COPD, CVA/TIA, Hypertension Additional Past Medical History / Comment(s): COPD, history of TIA, chronic neck pain secondary to degenerative arthritis, cachexia History of Any Multi-Drug Resistant Organisms: None Reported Past Surgical History: Section Additional Past Surgical History / Comment(s): Pt states she has had 3 eye surgeries to correct double vision, colonoscopy. x2 Past Anesthesia/Blood Transfusion Reactions: No Reported Reaction Past Psychological History: Anxiety Smoking Status: Former smoker Past Alcohol Use History: None Reported Past Drug Use History: None Reported - Past Family History Father Family Medical History: Myocardial Infarction (IN) Additional Family Medical History / Comment(s): Father of a massive IN at the age of 6yrs Mother Family Medical History: Cancer Additional Family Medical History / Comment(s): Mother of lung cancer at t he age of 64yrs. She was a smoker. <Tee Clifton - Last Filed: 12/19/23 18:05> General Exam Limitations: no limitations <Tee Clifton - Last Filed: 12/19/23 18:05> <Damien Brown - Last Filed: 12/19/23 20:59> - General Exam Comments Initial Comments: Visual Physical Exam Vital signs reviewed General: Well-appearing, nontoxic, no acute distress. Head: Normocephalic, atraumatic Eyes: PERRLA, EOMI ENT: Airway patent Chest: Nonlabored breathing Skin: No visual rash, normal skin tone Neuro: Alert and oriented 3 Musculoskeletal: No gross abnormalities (Tee Clifton) This is a well-developed well-nourished awake alert oriented x 4 female neck supple no stridor JVD or bruits full range of motion lamination of the chest with auscultation reveals bilateral equal but the very diminished breath sounds. No rales rhonchi. Abdomen soft nontender extremities bilaterally present symmetric no evidence of any edema no calf tenderness. Neurological exam cranial nerves II through XII grossly intact no focal sensorimotor or vascular deficits. Psychiatric exam normal. Integument normal. (Damien Brown) Course Vital Signs 12/19/23 12/19/23 12/19/23 17:56 18:48 19:50 Temperature 98.2 F Pulse Rate 122 H 93 94 Respiratory 20 18 Rate Blood Pressure 110/80 133/94 O2 Sat by Pulse 93 L 98 Oximetry 12/19/23 12/19/23 19:57 19:59 Temperature Pulse Rate 92 97 Respiratory 18 Rate Blood Pressure 127/91 O2 Sat by Pulse 98 Oximetry EKG Findings - EKG Results: EKG: interpreted by ERMD (EKG interpreted by pa sinus tachycardia 100 parable 171 QRS ration 82 QT/QTc 316/373) <Damien Brown - Last Filed: 12/19/23 20:59> Medical Decision Making <Tee Clifton - Last Filed: 12/19/23 18:05> - Lab Data Result diagrams: 12/19/23 18:05 12/19/23 18:05 <Damien Brown - Last Filed: 12/19/23 20:59> - Medical Decision Making Quicknote portion performed. Signed Tee Clifton PA-C (Tee Clifton) I did discuss the findings with the patient and her . Also with Dr. Cheema. Patient does demonstrate evidence of an NSTEMI with dyspnea she has a COPD history. She does have an elevated D-dimer but has a bad reaction with diet donated contrast media will be admitted placed on anticoagulation heparin and VQ scan will be ordered in the morning cardiology will be consulted. She initially did not get much relief and using the first nebulizer treatment. She did on further questioning states she had some possibly intermittent episodes of sharp chest pain in the lower sternal area but she related that again to her anxiety from not breathing. Was pt. sent in by a medical professional or institution (, [facility], [employer], urgent care, hospital, or long term...) When possible be specific @ -No Did you speak to anyone other than the patient for history (EMS, parent, family, police, friend...)? What history was obtained from this source @ -Family Did you review nursing and triage notes (agree or disagree)? Why? @ -I reviewed and agree with nursing and triage notes Were old charts reviewed (outside hosp., previous admission, EMS record, old EKG, old radiological studies, urgent care reports/EKG's, long term records)? Report findings @ -2017 old charts were reviewed Differential Diagnosis (chest pain, altered mental status, abdominal pain women, abdominal pain men, vaginal bleeding, weakness, fever, dyspnea, syncope, headache, dizziness, GI bleed, back pain, seizure, CVA, palpatations, mental health, musculoskeletal)? @ -Dyspnea, chest pain EKG interpreted by me (3pts min.). @ -As above EKG interpreted by me sinus tachycardia rate of 100 parable 171 QRS duration 82 QT/QTc 316/373 nonspecific T wave in the anterior and Fery or regions. This was compared with an EKG dated 07/07/2017 X-rays interpreted by me (1pt min.). @ -Chest x-ray interpreted by me no definitive acute processes seen CT interpreted by me (1pt min.). @ -None done U/S interpreted by me (1pt. min.). @ -None done What testing was considered but not performed or refused? (CT, X-rays, U/S, labs)? Why? @ -CT angio a VQ scan will be ordered due to the allergy to contrast What meds were considered but not given or refused? Why? @ -None Did you discuss the management of the patient with other professionals (professionals i.e. , PA, [employer], lab, RT, psych nurse, social worker clinical, morgue attendant, teacher, radiological defense officer, rifle case repairer)? Give summary @ -Dr. Cheema and Dr. Rich Was smoking cessation discussed for >3mins.? @ -No Was critical care preformed (if so, how long)? @ -39 minutes Were there social determinants of health that impacted care today? How? (Homelessness, low income, unemployed, alcoholism, drug addiction, transportation, low edu. Level, literacy, decrease access to med. care, care home, rehab)? @ -No Was there de-escalation of care discussed even if they declined (Discuss DNR or withdrawal of care, Hospice)? DNR status @ -No What co-morbidities impacted this encounter? (DM, HTN, Smoking, COPD, CAD, Cancer, CVA, ARF, Chemo, Hep., AIDS, mental health diagnosis, sleep apnea, morbid obesity)? @ -COPD, former smoker who quit in 2017 Was patient admitted / discharged? Hospital course, mention meds given and route, prescriptions, significant lab abnormalities, going to OR and other pertinent info. @ -Hospital course patient was admitted to the hospital for inpatient treatment she will receive heparin and nitroglycerin paste cardiology consultation ec hocardiogram in a.m. Undiagnosed new problem with uncertain prognosis? @ -Elevated troponin, NSTEMI Drug Therapy requiring intensive monitoring for toxicity (Heparin, Nitro, Insulin, Cardizem)? @ -No Were any procedures done? @ -No Diagnosis/symptom? @ -Acute NSTEMI, COPD exacerbation, chest pain, elevated D-dimer Acute, or Chronic, or Acute on Chronic? @ -Acute Uncomplicated (without systemic symptoms) or Complicated (systemic symptoms)? @ -Placated Side effects of treatment? @ -No Exacerbation, Progression, or Severe Exacerbation? @ -No Poses a threat to life or bodily function? How? (Chest pain, [place], [place], pneumonia, PE, COPD, DKA, ARF, appy, cholecystitis, CVA, Diverticulitis, Homicidal, Suicidal, threat to staff... and all critical care pts) @ -Potential, chest pain, COPD (Damien Brown) - Lab Data Lab Results 12/19/23 12/19/23 12/19/23 Range/Units 18:05 18:05 18:05 WBC 7.3 (3.8-10.6) k/uL RBC 4.91 (3.80-5.40) m/uL Hgb 14.7 (11.4-16.0) gm/dL Hct 45.4 (34.0-46.0) % MCV 92.4 (80.0-100.0) fL MCH 30.0 (25.0-35.0) pg MCHC 32.4 (31.0-37.0) g/dL RDW 13.5 (11.5-15.5) % Plt Count 323 (150-450) k/uL MPV 7.1 Neutrophils % 74 % Lymphocytes % 16 % Monocytes % 6 % Eosinophils % 2 % Basophils % 0 % Neutrophils # 5.4 (1.3-7.7) k/uL Lymphocytes # 1.2 (1.0-4.8) k/uL Monocytes # 0.5 (0-1.0) k/uL Eosinophils # 0.1 (0-0.7) k/uL Basophils # 0.0 (0-0.2) k/uL PT 11.8 (10.0-12.5) sec INR 1.1 (<1.2) APTT 25.8 (22.0-30.0) sec D-Dimer 0.67 H (<0.60) mg/L FEU Sodium 136 L (137-145) mmol/L Potassium 3.6 (3.5-5.1) mmol/L Chloride 104 (98-107) mmol/L Carbon Dioxide 19 L (22-30) mmol/L Anion Gap 13 mmol/L BUN 7 (7-17) mg/dL Creatinine 0.65 (0.52-1.04) mg/dL Est GFR (CKD-EPI)AfAm >90 (>60 ml/min/1.73 sqM) Est GFR (CKD-EPI)NonAf >90 (>60 ml/min/1.73 sqM) Glucose 123 H (74-99) mg/dL Plasma Lactic Acid Ak[place] (0.7-2.0) mmol/L Calcium 10.0 (8.4-10.2) mg/dL Magnesium 1.6 (1.6-2.3) mg/dL Total Bilirubin 0.8 (0.2-1.3) mg/dL AST 28 (14-36) U/L ALT 12 (4-34) U/L Alkaline Phosphatase 100 (38-126) U/L Troponin I (0.000-0.034) ng/mL Total Protein 7.6 (6.3-8.2) g/dL Albumin 4.6 (3.5-5.0) g/dL Urine Color Urine Appearance (Clear) Urine pH (5.0-8.0) Ur Specific [place] (1.001-1.035) Urine Protein (Negative) Urine Glucose (UA) (Negative) Urine Ketones (Negative) Urine Blood (Negative) Urine Nitrite (Negative) Urine Bilirubin (Negative) Urine Urobilinogen (<2.0) mg/dL Ur Leukocyte Esterase (Negative) Urine RBC (0-5) /hpf Urine WBC (0-5) /hpf Ur Squamous Epith Cells (0-4) /hpf Amorphous Sediment (None) /hpf Urine Bacteria (None) /hpf Hyaline Casts (0-2) /lpf Urine Mucus (None) /hpf Influenza Type A (PCR) (Not Detectd) Influenza Type B (PCR) (Not Detectd) RSV (PCR) (Not Detectd) SARS-CoV-2 (PCR) (Not Detectd) 12/19/23 12/19/23 12/19/23 Range/Units 18:05 18:05 19:28 WBC (3.8-10.6) k/uL RBC (3.80-5.40) m/uL Hgb (11.4-16.0) gm/dL Hct (34.0-46.0) % MCV (80.0-100.0) fL MCH (25.0-35.0) pg MCHC (31.0-37.0) g/dL RDW (11.5-15.5) % Plt Count (150-450) k/uL MPV Neutrophils % % Lymphocytes % % Monocytes % % Eosinophils % % Basophils % % Neutrophils # (1.3-7.7) k/uL Lymphocytes # (1.0-4.8) k/uL Monocytes # (0-1.0) k/uL Eosinophils # (0-0.7) k/uL Basophils # (0-0.2) k/uL PT (10.0-12.5) sec INR (<1.2) APTT (22.0-30.0) sec D-Dimer (<0.60) mg/L FEU Sodium (137-145) mmol/L Potassium (3.5-5.1) mmol/L Chloride (98-107) mmol/L Carbon Dioxide (22-30) mmol/L Anion Gap mmol/L BUN (7-17) mg/dL Creatinine (0.52-1.04) mg/dL Est GFR (CKD-EPI)AfAm (>60 ml/min/1.73 sqM) Est GFR (CKD-EPI)NonAf (>60 ml/min/1.73 sqM) Glucose (74-99) mg/dL Plasma Lactic Acid [place] 1.3 (0.7-2.0) mmol/L Calcium (8.4-10.2) mg/dL Magnesium (1.6-2.3) mg/dL Total Bilirubin (0.2-1.3) mg/dL AST (14-36) U/L ALT (4-34) U/L Alkaline Phosphatase (38-126) U/L Troponin I 0.377 H* (0.000-0.034) ng/mL Total Protein (6.3-8.2) g/dL Albumin (3.5-5.0) g/dL Urine Color Yellow Urine Appearance Cloudy H (Clear) Urine pH 5.5 (5.0-8.0) Ur Specific [place] 1.028 (1.001-1.035) Urine Protein 1+ H (Negative) Urine Glucose (UA) Negative (Negative) Urine Ketones 1+ H (Negative) Urine Blood Small H (Negative) Urine Nitrite Negative (Negative) Urine Bilirubin Negative (Negative) Urine Urobilinogen <2.0 (<2.0) mg/dL Ur Leukocyte Esterase Large H (Negative) Urine RBC 4 (0-5) /hpf Urine WBC 21 H (0-5) /hpf Ur Squamous Epith Cells 4 (0-4) /hpf Amorphous Sediment Rare H (None) /hpf Urine Bacteria Occasional H (None) /hpf Hyaline Casts 7 H (0-2) /lpf Urine Mucus Moderate H (None) /hpf Influenza Type A (PCR) (Not Detectd) Influenza Type B (PCR) (Not Detectd) RSV (PCR) (Not Detectd) SARS-CoV-2 (PCR) (Not Detectd) 12/19/23 Range/Units 19:28 WBC (3.8-10.6) k/uL RBC (3.80-5.40) m/uL Hgb (11.4-16.0) gm/dL Hct (34.0-46.0) % MCV (80.0-100.0) fL MCH (25.0-35.0) pg MCHC (31.0-37.0) g/dL RDW (11.5-15.5) % Plt Count (150-450) k/uL MPV Neutrophils % % Lymphocytes % % Monocytes % % Eosinophils % % Basophils % % Neutrophils # (1.3-7.7) k/uL Lymphocytes # (1.0-4.8) k/uL Monocytes # (0-1.0) k/uL Eosinophils # (0-0.7) k/uL Basophils # (0-0.2) k/uL PT (10.0-12.5) sec INR (<1.2) APTT (22.0-30.0) sec D-Dimer (<0.60) mg/L FEU Sodium (137-145) mmol/L Potassium (3.5-5.1) mmol/L Chloride (98-107) mmol/L Carbon Dioxide (22-30) mmol/L Anion Gap mmol/L BUN (7-17) mg/dL Creatinine (0.52-1.04) mg/dL Est GFR (CKD-EPI)AfAm (>60 ml/min/1.73 sqM) Est GFR (CKD-EPI)NonAf (>60 ml/min/1.73 sqM) Glucose (74-99) mg/dL Plasma Lactic Acid [place] (0.7-2.0) mmol/L Calcium (8.4-10.2) mg/dL Magnesium (1.6-2.3) mg/dL Total Bilirubin (0.2-1.3) mg/dL AST (14-36) U/L ALT (4-34) U/L Alkaline Phosphatase (38-126) U/L Troponin I (0.000-0.034) ng/mL Total Protein (6.3-8.2) g/dL Albumin (3.5-5.0) g/dL Urine Color Urine Appearance (Clear) Urine pH (5.0-8.0) Ur Specific [place] (1.001-1.035) Urine Protein (Negative) Urine Glucose (UA) (Negative) Urine Ketones (Negative) Urine Blood (Negative) Urine Nitrite (Negative) Urine Bilirubin (Negative) Urine Urobilinogen (<2.0) mg/dL Ur Leukocyte Esterase (Negative) Urine RBC (0-5) /hpf Urine WBC (0-5) /hpf Ur Squamous Epith Cells (0-4) /hpf Amorphous Sediment (None) /hpf Urine Bacteria (None) /hpf Hyaline Casts (0-2) /lpf Urine Mucus (None) /hpf Influenza Type A (PCR) Not Detected (Not Detectd) Influenza Type B (PCR) Not Detected (Not Detectd) RSV (PCR) Not Detected (Not Detectd) SARS-CoV-2 (PCR) Not Detected (Not Detectd) Critical Care Time Critical Care Time: Yes Total Critical Care Time: 39 <Damien Brown - Last Filed: 12/19/23 20:59> Disposition <Tee Clifton - Last Filed: 12/19/23 18:05> Time of Disposition: 20:30 Decision Date: 12/19/23 Decision Time: 20:30 <Damien Brown - Last Filed: 12/19/23 20:59> Clinical Impression: NSTEMI (non-ST elevated myocardial infarction), COPD exacerbation, Dyspnea, Elevated d-dimer, Chest pain Disposition: ADMITTED IP TO THIS HOSP Condition: Fair Referrals: None,Stated [Primary Care Provider] - 1-2 days
[2023-12-19 18:53] LABS: Basophils % (A) 0 %; Eosinophils # (A) 0.1 k/uL (0-0.7); Eosinophils % (A) 2 %; HCT 45.4 % (34.0-46.0); HGB 14.7 gm/dL (11.4-16.0); Lymphocytes # (A) 1.2 k/uL (1.0-4.8); Lymphocytes % (A) 16 %; MCHC 32.4 g/dL (31.0-37.0); MCV 92.4 fL (80.0-100.0); Mean Platelet Volume 7.1; Monocytes # (A) 0.5 k/uL (0-1.0); Monocytes % (A) 6 %; Neutrophils # (A) 5.4 k/uL (1.3-7.7); Neutrophils % (A) 74 %; Platelet Count 323 k/uL (150-450); RBC 4.91 m/uL (3.80-5.40); RDW 13.5 % (11.5-15.5); WBC 7.3 k/uL (3.8-10.6)
[2023-12-19 19:13] LABS: INR 1.1 (<1.2); Partial Thromboplastin Time 25.8 sec (22.0-30.0); Prothrombin Time 11.8 sec (10.0-12.5)
[2023-12-19 19:23] LABS: ALT 12 U/L (4-34); AST 28 U/L (14-36); African American GFR (CKD) >90 (>60 ml/min/1.73 sqM); Albumin 4.6 g/dL (3.5-5.0); Alkaline Phosphatase 100 U/L (38-126); Anion Gap 13 mmol/L; Blood Urea Nitrogen 7 mg/dL (7-17); Carbon Dioxide 19 mmol/L (22-30); Chloride 104 mmol/L (98-107); Glucose 123 mg/dL (74-99); Magnesium 1.6 mg/dL (1.6-2.3); Non-African American GFR(CKD) >90 (>60 ml/min/1.73 sqM); Potassium 3.6 mmol/L (3.5-5.1); Sodium 136 mmol/L (137-145); Total Bilirubin 0.8 mg/dL (0.2-1.3); Total Protein 7.6 g/dL (6.3-8.2)
[2023-12-19] MEDS: IPRATROPIUM-ALBUTEROL 3 ML NEB INHALATION STA (19:49)
[2023-12-19 20:04] LABS: Amorphous Sediment,Urine Rare /hpf; Appearance,Urine Cloudy (Clear); Bacteria,Urine Occasional /hpf; Bilirubin,Urine Negative (Negative); Blood,Urine Small (Negative); Color,Urine Yellow; Glucose,Urine (UA) Negative (Negative); Hyaline Casts,Urine 7 /lpf (0-2); Ketones,Urine 1+ (Negative); Leukocyte Esterase,Urine Large (Negative); Mucus,Urine Moderate /hpf; Nitrite,Urine Negative (Negative); PH, Urine 5.5 (5.0-8.0); Protein,Urine 1+ (Negative); RBC,Urine 4 /hpf (0-5); Specific Gravity,Urine 1.028 (1.001-1.035); Squamous Epithelial Cell,Urine 4 /hpf (0-4); Urobilinogen,Urine <2.0 mg/dL (<2.0); WBC,Urine 21 /hpf (0-5)
--- NOTE | 2023-12-19 20:54 | XR ---
EXAMINATION TYPE: XR chest 2V DATE OF EXAM: 12/19/2023 7:42 PM CLINICAL INDICATION:Female, 68 years old with history of Dyspnea; [facility] COMPARISON: 11/04/2020 TECHNIQUE: XR chest 2V. Frontal and lateral views of the chest.. FINDINGS: Lines/Tubes/Devices: EKG leads overlie the chest. No indwelling lines are seen. Heart/mediastinum: Stable CM silhouette. Heart size upper normal. Mediastinum appears normal. Pulmonary vascularity: Not increased, Lungs/Pleura: Lungs are hyperinflated with relative lucency of the upper lungs, increased retrosterna l clear space, flattening of the diaphragm, and biapical pleural thickening; constellation of finding s is suggestive of emphysema/COPD. There is mild bibasilar stranding suggesting scarring or subsegmen val atelectasis. Mild pleural thickening at the lung bases similar to previous. No sizable effusion, focal consolidation, or pneumothorax. Musculoskeletal: No acute osseous abnormality demonstrated in the limits of the exam. Osteopenia. Mi ld degenerative changes. Other findings: None. IMPRESSION: Changes of COPD/emphysema suggested, without evidence of acute superimposed airspace disease.
[2023-12-19] MEDS ORDERED: ACETAMINOPHEN TAB 325 MG TAB PO PRN (21:00)
[2023-12-19] MEDS ORDERED: NALOXONE 0.4 MG/ML 1 ML VIAL IV PRN (21:00)
[2023-12-19] MEDS ORDERED: HYDROcodone/APAP 7.5-325MG 1 EACH TAB PO PRN (21:02)
[2023-12-19] MEDS ORDERED: HEPARIN SODIUM 1,000 UN/ML (10ML VL) IV PRN (21:03)
[2023-12-19 21:43] LABS: INR 1.1 (<1.2); Partial Thromboplastin Time 25.9 sec (22.0-30.0); Prothrombin Time 11.9 sec (10.0-12.5)
[2023-12-19] MEDS: ASPIRIN 81 MG PO STA (21:47)
[2023-12-19] MEDS: SODIUM CHLORIDE 0.9% 1,000 ML IV SCH (21:47)
[2023-12-19] MEDS: NITROGLYCERIN OINT 1 INCH/GM PACKET TOPICAL STA (21:48)
[2023-12-19] MEDS: HEPARIN SODIUM 1,000 UN/ML (10ML VL) IV ONE (21:51)
[2023-12-19] MEDS: HEPARIN SOD,PORK IN 0.45% NACL 25,000 UNIT in 0.45% NACL 1 250ML.BAG IV SCH (21:52)
[2023-12-19] MEDS: ALPRAZolam 1 MG TAB PO SCH (22:31)
[2023-12-19] MEDS: NITROGLYCERIN OINT 1 INCH/GM PACKET TOPICAL SCH (23:43)
[2023-12-20 03:04] LABS: INR 1.1 (<1.2); Partial Thromboplastin Time 91.1 sec (22.0-30.0); Prothrombin Time 12.2 sec (10.0-12.5)
[2023-12-20] MEDS: ASPIRIN 325 MG TAB PO SCH (08:52)
[2023-12-20] MEDS: METOPROLOL TARTRATE 12.5 MG TAB PO SCH (08:52)
[2023-12-20] MEDS: MEGESTROL 40 MG TAB PO SCH (08:56)
--- NOTE | 2023-12-20 09:25 | NM ---
EXAMINATION TYPE: NM pul vent and perfuse DATE OF EXAM: 12/20/2023 CLINICAL INDICATION: Female, 68 years old with history of Elevated D-dimer; COMPARISON: Chest x-ray 12/19/2023 TECHNIQUE: Utilizing inhalation of 68.2 mCi Tc 99m DTPA aerosol and intravenous injection of 5.34 mC i of Tc 99m MAA, ventilation and perfusion images are acquired post injection in multiple projections . FINDINGS: There is diminished radiotracer accumulation through the right upper and midlung. Some diminished rad iotracer may be along the left upper lung field. There is some central deposition of radiotracer on t he ventilation portion study. Ventilation and perfusion appears matched. Exam is compared to the chest of 12/19/2023. No triple matched defects are evident. Findings appear co mpatible with COPD. IMPRESSION: Indeterminate probability for pulmonary embolism based on PIOPED 2 criteria.
[2023-12-20] MEDS ORDERED: busPIRone HCl 5 MG TAB PO PRN (10:47)
[2023-12-20] MEDS ORDERED: IPRATROPIUM-ALBUTEROL 3 ML NEB INHALATION PRN (10:49)
[2023-12-20] MEDS ORDERED: NON FORMULARY DRUG (Buprenorphine Hcl/Naloxone Hcl [Suboxone 8 Mg-2 Mg Sl Film] 1 EACH Fil SL SCH (11:00)
[2023-12-20 11:04] LABS: Basophils % (A) 1 %; Eosinophils # (A) 0.2 k/uL (0-0.7); Eosinophils % (A) 3 %; HCT 43.1 % (34.0-46.0); HGB 13.6 gm/dL (11.4-16.0); Lymphocytes # (A) 1.2 k/uL (1.0-4.8); Lymphocytes % (A) 24 %; MCH 29.7 pg (25.0-35.0); MCHC 31.6 g/dL (31.0-37.0); Mean Platelet Volume 7.3; Monocytes # (A) 0.4 k/uL (0-1.0); Monocytes % (A) 7 %; Neutrophils # (A) 3.3 k/uL (1.3-7.7); Neutrophils % (A) 64 %; Platelet Count 278 k/uL (150-450); RBC 4.58 m/uL (3.80-5.40); RDW 13.5 % (11.5-15.5); WBC 5.2 k/uL (3.8-10.6)
[2023-12-20 11:20] LABS: African American GFR (CKD) >90 (>60 ml/min/1.73 sqM); Anion Gap 7 mmol/L; Blood Urea Nitrogen 6 mg/dL (7-17); Calcium 9.1 mg/dL (8.4-10.2); Carbon Dioxide 28 mmol/L (22-30); Chloride 105 mmol/L (98-107); Glucose 81 mg/dL (74-99); Non-African American GFR(CKD) >90 (>60 ml/min/1.73 sqM); Potassium 4.1 mmol/L (3.5-5.1); Sodium 140 mmol/L (137-145)
[2023-12-20] MEDS: predniSONE 20 MG TAB PO SCH (11:20)
[2023-12-20] MEDS: guaiFENesin 600 MG TABLET.ER PO SCH (11:20)
[2023-12-20 11:27] LABS: NT-Pro-B-Type Natriuretic Pept 2860 pg/mL
--- NOTE | 2023-12-20 12:48 | P.HPIM ---
History of Present Illness H&P Date: 12/20/23 Chief Complaint: Shortness of breath * 68-year-old gentleman with past medical history significant for COPD, history of hypertension, history of TIA, degenerative arthritis, presents to the emergency department with complaints of shortness of breath that has been ongoing for the last 2 weeks. Patient also complained of associated midsternal chest pain that has been going on for the last few days however at the time of presentation it had resolved. Patient has been ill with diarrhea for 2 weeks with fever and nonproductive cough. * Workup in ER included CBC which showed normal WBC count hemoglobin and platelet count. Serum chemistry showed sodium 136 potassium 3.6 carbon dioxide 19 BUN 7 creatinine 0.65 * Troponin obtained 0.377, followed by 0.234 * EKG obtained in ER showed sinus tachycardia without significant ST segment changes * Patient had VQ scan completed which was indeterminate for pulm embolism * Workup in the ER included ACS workup, patient was started on IV heparin, cardiology consulted and was given aspirin * Pulmonary medicine was consulted as well secondary to known history of COPD as well as history of chronic smoker REVIEW OF SYSTEMS: Shortness of breath, chest pain CONSTITUTIONAL: No fever, no malaise, no fatigue. HEENT: No recent visual problems or hearing problems. Denied any sore throat. CARDIOVASCULAR: Shortness of breath, chest pain PULMONARY: No shortness of breath, no cough, no hemoptysis. GASTROINTESTINAL: No diarrhea, no nausea, no vomiting, no abdominal pain. NEUROLOGICAL: No headaches, no weakness, no numbness. HEMATOLOGICAL: Denies any bleeding or petechiae. GENITOURINARY: Denies any burning micturition, frequency, or urgency. MUSCULOSKELETAL/RHEUMATOLOGICAL: Denies any joint pain, swelling, or any muscle pain. ENDOCRINE: Denies any polyuria or polydipsia. PHYSICAL EXAMINATION: GENERAL: The patient is alert and oriented x3, ill appearance, nasal cannula in place HEENT: Pupils are round and equally reacting to light. EOMI. No scleral icterus. CARDIOVASCULAR: S1 and S2 present. PULMONARY: Chest is clear to auscultation, no wheezing or crackles. ABDOMEN: Soft, nontender, nondistended, normoactive bowel sounds. No palpable organomegaly. MUSCULOSKELETAL: No joint swelling or deformity. EXTREMITIES: No cyanosis, clubbing, or pedal edema. NEUROLOGICAL: Gross neurological examination did not reveal any focal deficits. Past Medical History Past Medical History: COPD, CVA/TIA, Hypertension Additional Past Medical History / Comment(s): COPD, history of TIA, chronic neck pain secondary to degenerative arthritis, cachexia History of Any Multi-Drug Resistant Organisms: None Reported Past Surgical History: Section Additional Past Surgical History / Comment(s): Pt states she has had 3 eye surgeries to correct double vision, colonoscopy. x2 Past Anesthesia/Blood Transfusion Reactions: No Reported Reaction Past Psychological History: Anxiety Smoking Status: Former smoker Past Alcohol Use History: None Reported Past Drug Use History: None Reported - Past Family History Father Family Medical History: Myocardial Infarction (DC) Additional Family Medical History / Comment(s): Father of a massive DC at the age of 6yrs Mother Family Medical History: Cancer Additional Family Medical History / Comment(s): Mother of lung cancer at the age of 64yrs. She was a smoker. Medications and Allergies Home Medications Medication Instructions Recorded Confirmed Type Metoprolol Tartrate [Lopressor] 12.5 mg PO BID 11/04/20 12/20/23 History Buprenorphine HCl/Naloxone HCl 0.125 film SL DIRECTED 12/20/23 12/20/23 His tory [Suboxone 8 mg-2 mg Sl Film] PARoxetine [Paxil] 10 mg PO HS 12/20/23 12/20/23 History busPIRone HCL 5 mg PO TID PRN 12/20/23 12/20/23 History Allergies Allergy/AdvReac Type Severity Reaction Status Date / Time Iodinated Contrast Media Allergy Swelling - Verified 12/20/23 09:53 [Iodinated Contrast- Oral throat and IV Dye] iodine Allergy Swelling - Verified 12/20/23 09:53 throat Sulfa (Sulfonamide Allergy Swelling - Verified 12/20/23 09:53 Antibiotics) throat Physical Exam Vitals: Vital Signs Temp Pulse Pulse Resp BP BP Pulse Ox 12/20/23 08:44 78 18 118/69 97 12/20/23 06:49 80 20 150/98 96 12/20/23 04:00 71 16 106/74 95 12/20/23 00:00 78 16 95/72 93 L 12/19/23 21:00 85 16 115/86 92 L 12/19/23 19:59 97 12/19/23 19:57 92 18 127/91 98 12/19/23 19:50 94 12/19/23 18:48 93 18 133/94 98 12/19/23 17:56 98.2 F 122 H 20 110/80 93 L Intake and Output 12/19/23 12/20/23 12/20/23 22:59 06:59 14:59 Intake Total 44.343 Balance 44.343 Intake: Intake, IV Titration 44.343 Amount Heparin Sod,Pork in 0.45% 44.343 NaCl 25,000 unit In 0.45 % NaCl 1 250ml.bag @ 12 UNITS/KG/HR 7.076 mls/hr IV .Q24H COUNT INCLUDES THE [facility] Rx#: [id number] Other: Weight 58.967 kg Results CBC & Chem 7: 12/20/23 09:25 12/20/23 09:25 Labs: Abnormal Lab Results - Last 24 Hours (Table) 12/19/23 12/19/23 12/19/23 Range/Units 18:05 18:05 18:05 APTT (22.0-30.0) sec D-Dimer 0.67 H (<0.60) mg/L FEU Sodium 136 L (137-145) mmol/L Carbon Dioxide 19 L (22-30) mmol/L Glucose 123 H (74-99) mg/dL Troponin I 0.377 H* (0.000-0.034) ng/mL Urine Appearance (Clear) Urine Protein (Negative) Urine Ketones (Negative) Urine Blood (Negative) Ur Leukocyte Esterase (Negative) Urine WBC (0-5) /hpf Amorphous Sediment (None) /hpf Urine Bacteria (None) /hpf Hyaline Casts (0-2) /lpf Urine Mucus (None) /hpf 12/19/23 12/20/23 12/20/23 Range/Units 19:28 00:17 02:34 APTT (22.0-30.0) sec D-Dimer (<0.60) mg/L FEU Sodium (137-145) mmol/L Carbon Dioxide (22-30) mmol/L Glucose (74-99) mg/dL Troponin I 0.321 H* 0.234 H* (0.000-0.034) ng/mL Urine Appearance Cloudy H (Clear) Urine Protein 1+ H (Negative) Urine Ketones 1+ H (Negative) Urine Blood Small H (Negative) Ur Leukocyte Esterase Large H (Negative) Urine WBC 21 H (0-5) /hpf Amorphous Sediment Rare H (None) /hpf Urine Bacteria Occasional H (None) /hpf Hyaline Casts 7 H (0-2) /lpf Urine Mucus Moderate H (None) /hpf 12/19/ Range/Units 02:34 APTT 91.1 H (22.0-30.0) sec D-Dimer (<0.60) mg/L FEU Sodium (137-145) mmol/L Carbon Dioxide (22-30) mmol/L Glucose (74-99) mg/dL Troponin I (0.000-0.034) ng/mL Urine Appearance (Clear) Urine Protein (Negative) Urine Ketones (Negative) Urine Blood (Negative) Ur Leukocyte Esterase (Negative) Urine WBC (0-5) /hpf Amorphous Sediment (None) /hpf Urine Bacteria (None) /hpf Hyaline Casts (0-2) /lpf Urine Mucus (None) /hpf Assessment and Plan Assessment: Assessment and plan * Non-ST elevated DC * History of COPD with exacerbation * History of TIA * History of hypertension * In regards to elevated troponin and chest pain, cardiology consulted continue IV heparin, serial troponins ordered, echocardiogram ordered D-dimer was elevated VQ scan indeterminate for PE. Continue aspirin, sublingual nitroglycerin * Regards to COPD exacerbation continue prednisone, continue breathing treatments as needed pulmonary medicine consulted * Regards to history of hypertension, continue patient on metoprolol * Status is full code Time with Patient: Greater than 30
--- NOTE | 2023-12-20 17:58 | P.CNPUL ---
History of Present Illness Consult date: 12/20/23 Requesting physician: Lucy Isaacs Reason for consult: dyspnea, COPD, hypoxemia Chief complaint: Shortness of breath History of present illness: This is a pleasant 68-year-old female patient with a known history of chronic obstructive pulmonary disease and former smoker who quit back in 2017. She also has a history of hypertension, CVA/TIA, chronic neck pain. She is seen today here in the emergency room with complaints of increasing shortness of breath, cough and congestion. She denies any fever no edema no history of pulmonary embolism. No prior history of pneumonia. Chest x-ray reveals changes of COPD/emphysema but no acute pulmonary process. D-dimer is 0.67. She did undergo VQ scan which was indeterminate for pulmonary embolism. White count 5.2. Hemoglobin 13.6. Platelets 278. Sodium 140. Potassium 4.1. Bicarb 28. BUN 6. Creatinine 0.57. Troponin 0.377, 0.225, 0.234. She is currently on a heparin drip. Urinalysis is cloudy with high WBCs and occasional bacteria. Viral screen was negative. proBNP 2860. She has been initiated on DuoNeb ventilations, Symbicort, prednisone taper. She is maintaining good O2 saturations in the upper 90s on 2 L/min per nasal cannula. Afebrile. Hemodynamically stable. Review of Systems REVIEW OF SYSTEMS: CONSTITUTIONAL: Denies any recent significant weight loss or weight gain. EYES: Denies change in vision. EARS, NOSE, MOUTH, THROAT: Denies headaches, denies sore throat. CARDIOVASCULAR: Denies chest pain, palpitations or syncopal episodes. RESPIRATORY: Positive for shortness of breath, cough, congestion no hemoptysis. GASTROINTESTINAL: Denies change in appetite, denies abdominal pain GENITOURINARY: Denies hematuria, denies infections. MUSKULOSKELETAL: Denies pain, denies swelling. INTEGUMENTARY: Denies rash, denies eczema. NEUROLOGICAL: Denies recent memory loss, no recent seizure activity. PSYCHIATRIC: Denies anxiety, denies depression. HEMATOLOGIC/LYMPHATIC: Denies anemia, denies enlarged lymph nodes. Past Medical History Past Medical History: COPD, CVA/TIA, Hypertension Additional Past Medical History / Comment(s): COPD, history of TIA, chronic neck pain secondary to degenerative arthritis, cachexia History of Any Multi-Drug Resistant Organisms: None Reported Past Surgical History: Section Additional Past Surgical History / Comment(s): Pt states she has had 3 eye surgeries to correct double vision, colonoscopy. x2 Past Anesthesia/Blood Transfusion Reactions: No Reported Reaction Past Psychological History: Anxiety Smoking Status: Former smoker Past Alcohol Use History: None Reported Past Drug Use History: None Reported - Past Family History Father Family Medical History: Myocardial Infarction (CT) Additional Family Medical History / Comment(s): Father of a massive CT at the age of 6yrs Mother Family Medical History: Cancer Additional Family Medical History / Comment(s): Mother of lung cancer at the age of 64yrs. She was a smoker. Medications and Allergies Home Medications Medication Instructions Recorded Confirmed Type Metoprolol Tartrate [Lopressor] 12.5 mg PO BID 11/04/20 12/20/23 History Buprenorphine HCl/Naloxone HCl 0.125 film SL DIRECTED 12/20/23 12/20/23 His tory [Suboxone 8 mg-2 mg Sl Film] PARoxetine [Paxil] 10 mg PO HS 12/20/23 12/20/23 History busPIRone HCL 5 mg PO TID PRN 12/20/23 12/20/23 History Allergies Allergy/AdvReac Type Severity Reaction Status Date / Time Iodinated Contrast Media Allergy Swelling - Verified 12/20/23 09:53 [Iodinated Contrast- Oral throat and IV Dye] iodine Allergy Swelling - Verified 12/20/23 09:53 throat Sulfa (Sulfonamide Allergy Swelling - Verified 12/20/23 09:53 Antibiotics) throat Physical Exam Vitals: Vital Signs Temp Pulse Pulse Resp BP BP Pulse Ox 12/20/23 14:26 18 98 12/20/23 13:55 76 18 12/20/23 12:12 76 18 12/20/23 11:24 76 18 114/85 98 12/20/23 08:44 78 18 118/69 97 12/20/23 06:49 80 20 150/98 96 12/20/23 04:00 71 16 106/74 95 12/20/23 00:00 78 16 95/72 93 L 12/19/23 21:00 85 16 115/86 92 L 12/19/23 19:59 97 12/19/23 19:57 92 18 127/91 98 12/19/23 19:50 94 12/19/23 18:48 93 18 133/94 98 12/19/23 17:56 98.2 F 122 H 20 110/80 93 L Intake and Output 12/20/23 12/20/23 12/20/23 06:59 14:59 22:59 Intake Total 44.343 59.461 720 Balance 44.343 59.461 720 Intake: Intake, IV Titration 44.343 59.461 600 Amount Heparin Sod,Pork in 0.45% 44.343 59.461 NaCl 25,000 unit In 0.45 % NaCl 1 250ml.bag @ 12 UNITS/KG/HR 7.076 mls/hr IV .Q24H [facility] Rx#: [id number] Sodium Chloride 0.9% 1, 600 000 ml @ 75 mls/hr IV . [id number] [facility] Rx#:[id number] Oral 120 Other: # Voids 1 GENERAL EXAM: Alert, pleasant 68-year-old female, on 2 L nasal cannula, comfortable in no apparent distress. HEAD: Normocephalic. EYES: Normal reaction of pupils, equal size. NOSE: Clear with pink turbinates. THROAT: No erythema or exudates. NECK: No masses, no JVD. CHEST: No chest wall deformity. LUNGS: Equal air entry with bilateral end expiratory wheeze, diminished. CVS: S1 and S2 normal with no audible murmur, regular rhythm. ABDOMEN: No hepatosplenomegaly, normal bowel sounds, no guarding or rigidity. SPINE: No scoliosis or deformity SKIN: No rashes CENTRAL NERVOUS SYSTEM: No focal deficits, tone is normal in all 4 extremities. EXTREMITIES: There is no peripheral edema. No clubbing, no cyanosis. Peripheral pulses are intact. Results - Laboratory Findings CBC and BMP: 12/20/23 09:25 12/20/23 09:25 PT/INR, D-dimer PT 12.2 sec (10.0-12.5) 12/20/23 02:34 INR 1.1 (<1.2) 12/20/23 02:34 D-Dimer 0.67 mg/L FEU (<0.60) H 12/19/23 18:05 Abnormal lab findings: Abnormal Labs 12/19/23 12/19/23 12/19/23 18:05 18:05 18:05 APTT D-Dimer 0.67 H Sodium 136 L Carbon Dioxide 19 L BUN Glucose 123 H Troponin I 0.377 H* Urine Appearance Urine Protein Urine Ketones Urine Blood Ur Leukocyte Esterase Urine WBC Amorphous Sediment Urine Bacteria Hyaline Casts Urine Mucus 12/19/23 12/20/23 12/20/23 19:28 00:17 02:34 APTT D-Dimer Sodium Carbon Dioxide BUN Glucose Troponin I 0.321 H* 0.234 H* Urine Appearance Cloudy H Urine Protein 1+ H Urine Ketones 1+ H Urine Blood Small H Ur Leukocyte Esterase Large H Urine WBC 21 H Amorphous Sediment Rare H Urine Bacteria Occasional H Hyaline Casts 7 H Urine Mucus Moderate H 12/20/23 12/20/23 12/20/23 02:34 09:25 09:25 APTT 91.1 H 41.2 H D-Dimer Sodium Carbon Dioxide BUN 6 L Glucose Troponin I Urine Appearance Urine Protein Urine Ketones Urine Blood Ur Leukocyte Esterase Urine WBC Amorphous Sediment Urine Bacteria Hyaline Casts Urine Mucus 12/20/23 09:25 APTT D-Dimer Sodium Carbon Dioxide BUN Glucose Troponin I 0.225 H* Urine Appearance Urine Protein Urine Ketones Urine Blood Ur Leukocyte Esterase Urine WBC Amorphous Sediment Urine Bacteria Hyaline Casts Urine Mucus - Diagnostic Findings Chest x-ray: image reviewed Assessment and Plan Assessment: Acute hypoxemic respiratory failure secondary to an acute exacerbation of chronic obstructive pulmonary disease. D-dimer mildly elevated. VQ scan shows indeterminant probability for pulmonary embolism Troponin leak. Currently on a heparin drip Former smoker History of CVA/TIA History of hypertension History of anxiety History of chronic neck pain Plan: The patient was seen and evaluated Chest x-ray, labs, VQ scan and medications rereviewed Initiate DuoNeb inhalations 3 times daily and as needed Continue Symbicort and prednisone Titrate the FiO2 as tolerated Continue heparin drip for now Obtain Dopplers of the lower extremities We will continue to follow and make further recommendations based on her clinical status I have personally seen and examined the patient, performed the documentation and the assessment and plan as written. Number of minutes spent on the visit: 20.
--- NOTE | 2023-12-20 19:00 | US ---
EXAMINATION TYPE: US venous doppler duplex LE DATE OF EXAM: 12/20/2023 5:16 PM COMPARISON: NONE CLINICAL INDICATION: Female, 68 years old with history of Elevated d dimer; elevated d dimer. No prob lems with legs per patient. No hx of DVT. SIDE PERFORMED: Bilateral TECHNIQUE: The lower extremity deep venous system is examined utilizing real time linear array sonog anabel with graded compression, doppler sonography and color-flow sonography. VESSELS IMAGED: Common Femoral Vein Deep Femoral Vein Greater Saphenous Vein * Femoral Vein Popliteal Vein Small Saphenous Vein * Proximal Calf Veins (* superficial vessels) The deep venous systems of both lower extremities from the common femoral veins to the proximal calf veins are patent and compressible with augmentable flow. There are normal venous wave forms throughou t. IMPRESSION: No evidence of DVT from the common femoral veins proximal calf veins bilaterally.
[2023-12-20] MEDS: IPRATROPIUM-ALBUTEROL 3 ML NEB INHALATION SCH (19:46)
[2023-12-20] MEDS: SYMBICORT 80-4.5 MCG INHALER INHALATION SCH (19:46)
[2023-12-20] MEDS: PARoxetine 10 MG TAB PO SCH (20:33)
--- NOTE | 2023-12-20 22:18 | CONS ---
CONSULTATION This is a 68-year-old lady who has been admitted to the hospital with increasing shortness of breath. She carries a diagnosis of COPD. She does not usually use home oxygen, but came in with worsening shortness of breath and also was placed on BiPAP through the night. She also had pulmonary perfusion study, which came to be indeterminate. EKG revealed sinus mechanism with inferolateral nonspecific ST abnormality. Laboratory data suggested troponin of 0.3, 0.2, and 0.2 at the modest elevation of proBNP at 2860. She has normal renal function. She is resting comfortably at the time of my evaluation. Echo has been advised but still pending. At the time of my evaluation, she has no chest discomfort. MEDICATIONS: At home include she takes Suboxone, Paxil, and metoprolol 12.5 mg b.i.d. PHYSICAL EXAMINATION: VITAL SIGNS: Blood pressure 118/70, pulse rate 70 per minute. HEENT: Unremarkable. Fundus was not examined by me. NECK: Supple. No JVD. No carotid bruit. HEART: S1, S2. Short systolic murmur. LUNGS: Bilateral decent air entry. ABDOMEN: Soft, nontender. LOWER EXTREMITIES: Diminished pulses. CENTRAL NERVOUS SYSTEM: Normal. DIAGNOSTIC DATA: EKG revealed sinus rhythm with inferolateral nonspecific ST-T changes. LABORATORY DATA: Revealed mild troponin elevation. IMPRESSION: 1. Exacerbation of chronic obstructive pulmonary disease. 2. Wor-[id number] myocardial infarction, probably type 2. 3. Chronic obstructive pulmonary disease with exacerbation. 4. Past history of smoking. RECOMMENDATIONS: I am recommending intravenous heparin for another 24 hours, echocardiogram to assess LV function, pulmonary evaluation, and also continue intravenous heparin. Seek pulmonary evaluation. Continue her steroids for COPD management. Prognosis remains guarded. MMODL / IJN: [id number] /
--- NOTE | 2023-12-21 10:56 | CA ---
Transthoracic Echo Report Name: Silva Urbina Age: 68 Gender: F : 1955 Exam Date: 12/20/2023 12:59 Exam Location: [facility] Ht (in): 67 Wt (lb): 130 Ordering Physician: Albina Squires MD ([id number]) Attending/Referring Phys: [employer] Daniela Lanier RDCS Procedure CPT: Indications: heart function Cardiac Hx: Technical Quality: Contrast 1: Definity Total Dose (mL): 2 Contrast 2: Total Dose (mL): MEASUREMENTS (Male / Female) Normal Values 2D ECHO LV Diastolic Diameter PLAX 3.9 cm 4.2 - 5.9 / 3.9 - 5.3 cm LV Systolic Diameter PLAX 2.9 cm IVS Diastolic Thickness 0.8 cm 0.6 - 1.0 / 0.6 - 0.9 cm LVPW Diastolic Thickness 0.7 cm 0.6 - 1.0 / 0.6 - 0.9 cm LV Relative Wall Thickness 0.4 LVOT Diameter 1.8 cm Aortic Root Diameter 3.0 cm LA Systolic Diameter LX 3.6 cm 3.0 - 4.0 / 2.7 - 3.8 cm LA Volume 31.6 cm??? 18 - 58 / 22 - 52 cm??? LA Volume Index 19.0 cm???/m??? 16 - 28 cm???/m??? DOPPLER AV Peak Velocity 108.1 cm/s AV Peak Gradient 4.7 mmHg AV Mean Velocity 75.3 cm/s AV Mean Gradient 2.4 mmHg AV Velocity Time Integral 15.3 cm LVOT Peak Velocity 105.5 cm/s LVOT Peak Gradient 4.5 mmHg LVOT Velocity Time Integral 18.1 cm LVOT Stroke Volume 44.8 cm??? LVOT Stroke Volume Index 26.6 ml/m??? AV Area Cont Eq vti 2.9 cm??? AV Area Cont Eq pk 2.4 cm??? Mitral E Point Velocity 69.7 cm/s Mitral A Point Velocity 83.7 cm/s Mitral E to A Ratio 0.8 MV Deceleration Time 152.5 ms MV E' Velocity 7.4 cm/s Mitral E to MV E' Ratio 9.4 PV Peak Velocity 71.6 cm/s PV Peak Gradient 2.1 mmHg FINDINGS Left Ventricle Left ventricular ejection fraction is estimated at 50-55%. Normal left ventricular wall motion. No obvious regional wall motion abnormalities.left ventricular cavity size normal. Right Ventricle Normal right ventricular size and function. Right Atrium Normal right atrial size. Left Atrium Normal left atrial size. Mitral Valve Mild mitral regurgitation.mitral annular calcification. Aortic Valve No aortic regurgitation.aortic valve not well visualized. Tricuspid Valve Trace tricuspid regurgitation.structurally normal tricuspid valve. Pulmonic Valve No pulmonic regurgitation.pulmonic valve not well visualized. Pericardium No pericardial effusion. Aorta Normal size aortic root. CONCLUSIONS Technically difficult study. Definity ECHO contrast used for improved visualization of the endocardial borders (inadequate visualization of two or more contiguous segments). 1. Left ventricle systolic function borderline normal 2. Very limited Doppler study with mild mitral regurgitation Previewed by: Dr. Ron Ley MD (Electronically Signed) Final Date: 21 December 2023 10:55
[2023-12-21] MEDS: ALPRAZolam 0.5 MG TAB PO PRN (11:31)
--- NOTE | 2023-12-21 12:10 | P.PN ---
Subjective Progress Note Date: 12/21/23 * 68-year-old gentleman with past medical history significant for COPD, history of hypertension, history of TIA, degenerative arthritis, presents to the emergency department with complaints of shortness of breath that has been ongoing for the last 2 weeks. Patient also complained of associated midsternal chest pain that has been going on for the last few days however at the time of presentation it had resolved. Patient has been ill with diarrhea for 2 weeks with fever and nonproductive cough. * Workup in ER included CBC which showed normal WBC count hemoglobin and platelet count. Serum chemistry showed sodium 136 potassium 3.6 carbon dioxide 19 BUN 7 creatinine 0.65 * Troponin obtained 0.377, followed by 0.234 * EKG obtained in ER showed sinus tachycardia without significant ST segment changes * Patient had VQ scan completed which was indeterminate for pulm embolism * Workup in the ER included ACS workup, patient was started on IV heparin, cardiology consulted and was given aspirin * Pulmonary medicine was consulted as well secondary to known history of COPD as well as history of chronic smoker * 12/21/23: Patient seen and evaluated bedside. Vitals reviewed. Blood work pending, patient states breathing has improved, will continue oxygen supplementation breathing treatment cardiology evaluation REVIEW OF SYSTEMS: Shortness of breath, chest pain IMPROVED CONSTITUTIONAL: No fever, no malaise, no fatigue. HEENT: No recent visual problems or hearing problems. Denied any sore throat. CARDIOVASCULAR: Shortness of breath, chest pain IMPROVED PULMONARY: No shortness of breath, no cough, no hemoptysis. GASTROINTESTINAL: No diarrhea, no nausea, no vomiting, no abdominal pain. NEUROLOGICAL: No headaches, no weakness, no numbness. HEMATOLOGICAL: Denies any bleeding or petechiae. GENITOURINARY: Denies any burning micturition, frequency, or urgency. MUSCULOSKELETAL/RHEUMATOLOGICAL: Denies any joint pain, swelling, or any muscle pain. ENDOCRINE: Denies any polyuria or polydipsia. PHYSICAL EXAMINATION: GENERAL: The patient is alert and oriented x3, ill appearance, nasal cannula in place HEENT: Pupils are round and equally reacting to light. EOMI. No scleral icterus. CARDIOVASCULAR: S1 and S2 present. PULMONARY: Chest is clear to auscultation, no wheezing or crackles. ABDOMEN: Soft, nontender, nondistended, normoactive bowel sounds. No palpable organomegaly. MUSCULOSKELETAL: No joint swelling or deformity. EXTREMITIES: No cyanosis, clubbing, or pedal edema. NEUROLOGICAL: Gross neurological examination did not reveal any focal deficits. Assessment and plan * Non-ST elevated [place] * Acute hypoxemic respiratory failure * History of COPD with exacerbation * History of TIA * History of hypertension * History of chronic pain * In regards to elevated troponin and chest pain, cardiology consulted , continue IV heparin, serial troponins reviewed, echocardiogram ordered , D- dimer was elevated VQ scan indeterminate for PE. * Continue aspirin, sublingual nitroglycerin * Regards to COPD exacerbation continue prednisone, continue breathing tr eatments as needed pulmonary medicine consulted * Regards to history of hypertension, continue patient on metoprolol * In regards to history of anxiety continue patient on Paxil Objective - Vital Signs Vital signs: Vital Signs Temp 98.2 F 12/19/23 17:56 Pulse 78 12/21/23 08:49 Resp 19 12/21/23 06:35 BP 85/63 12/21/23 06:35 Pulse Ox 98 12/21/23 06:35 FiO2 Intake & Output 12/20/23 12/21/23 12/21/23 18:59 06:59 18:59 Intake Total 779.461 53.424 71.939 Balance 779.461 53.424 71.939 Intake: Intake, IV Titration 659.461 53.424 71.939 Amount Heparin Sod,Pork in 0.45% 59.461 53.424 71.939 NaCl 25,000 unit In 0.45 % NaCl 1 250ml.bag @ 12 UNITS/KG/HR 7.076 mls/hr IV .Q24H [facility] Rx#: [id number] Sodium Chloride 0.9% 1, 600 000 ml @ 75 mls/hr IV . [id number] [facility] Rx#:[id number] Oral 120 Other: # Voids 1 - Labs CBC & Chem 7: 12/20/23 09:25 12/20/23 09:25 Labs: Abnormal Lab Results - Last 24 Hours (Table) 12/20/23 12/20/23 12/20/23 Range/Units 09:25 09:25 09:25 APTT 41.2 H (22.0-30.0) sec BUN 6 L (7-17) mg/dL Troponin I 0.225 H* (0.000-0.034) ng/mL 12/20/23 Range/Units 20:19 APTT 49.4 H (22.0-30.0) sec BUN (7-17) mg/dL Troponin I (0.000-0.034) ng/mL
[2023-12-21] MEDS: IPRATROPIUM-ALBUTEROL 3 ML NEB INHALATION SCH (12:24)
--- NOTE | 2023-12-21 14:46 | P.PN ---
Subjective Progress Note Date: 12/21/23 Principal diagnosis: Acute hypoxic respiratory failure secondary to acute exacerbation of COPD This is a pleasant 68-year-old female patient with a known history of chronic obstructive pulmonary disease and former smoker who quit back in 2017. She also has a history of hypertension, CVA/TIA, chronic neck pain. She is seen today here in the emergency room with complaints of increasing shortness of breath, cough and congestion. She denies any fever no edema no history of pulmonary embolism. No prior history of pneumonia. Chest x-ray reveals changes of COPD/emphysema but no acute pulmonary process. D-dimer is 0.67. She did undergo VQ scan which was indeterminate for pulmonary embolism. White count 5.2. Hemoglobin 13.6. Platelets 278. Sodium 140. Potassium 4.1. Bicarb 28. BUN 6. Creatinine 0.57. Troponin 0.377, 0.225, 0.234. She is currently on a heparin drip. Urinalysis is cloudy with high WBCs and occasional bacteria. Viral screen was negative. proBNP 2860. She has been initiated on DuoNeb ventilations, Symbicort, prednisone taper. She is maintaining good O2 saturations in the upper 90s on 2 L/min per nasal cannula. Afebrile. Hemodynamically stable. Patient was reevaluated today on 12/21/2023, basically about the same, continues to have intermittent episodes of shortness of breath, no cough no wheezing, no fever no chills no hemoptysis and no chest pain. Remains on heparin for elevated troponin, patient has a relatively normal CBC normal basic metabolic profile, normal renal profile troponin today is 0.225, it was 0.32 on admission. Echocardiogram showed normal right ventricular size and function, and normal LV function, no significant valvular heart disease she has mild mitral regurgitation but no evidence of pulmonary hypertension Objective - Vital Signs Vital signs: Vital Signs Temp 98.2 F 12/19/23 17:56 Pulse 78 12/21/23 12:34 Resp 18 12/21/23 14:00 BP 122/78 12/21/23 12:00 Pulse Ox 97 12/21/23 12:00 FiO2 Intake & Output 12/20/23 12/21/23 12/21/23 18:59 06:59 18:59 Intake Total 779.461 53.424 71.939 Balance 779.461 53.424 71.939 Weight 58.967 kg Intake: Intake, IV Titration 659.461 53.424 71.939 Amount Heparin Sod,Pork in 0.45% 59.461 53.424 71.939 NaCl 25,000 unit In 0.45 % NaCl 1 250ml.bag @ 12 UNITS/KG/HR 7.076 mls/hr IV .Q24H [facility] Rx#: [id number] Sodium Chloride 0.9% 1, 600 000 ml @ 75 mls/hr IV . [id number] [facility] Rx#:[id number] Oral 120 Other: # Voids 1 - Exam General: The patient is awake and alert, in no distress, anxious maintaining O2 saturation 97% on 2 L Skin: Skin is warm and dry and no rashes or lesions are noted. Eye: Pupils are equal, round and reactive to light, extra-ocular movements are intact; there is normal conjunctiva bilaterally. Ears, nose, mouth and throat: There are moist mucous membranes and no oral lesions. Neck: The neck is supple, there is no tenderness or JVD. Cardiovascular: There is a regular rate and rhythm. No murmur, rub or gallop is appreciated. Respiratory: Minich breath sound bilaterally no crackles rhonchi or wheezes Gastrointestinal: Soft, non-distended, non-tender abdomen without masses or organomegaly noted. There is no rebound or guarding present. Bowel sounds are unremarkable. Back: There is no tenderness to palpation in the midline. There is no obvious deformity. Musculoskeletal: Normal ROM, no tenderness, There is no pedal edema. There is no calf tenderness or swelling. No cords were appreciated. Neurological: CN II-XII intact, Cranial nerves III through XII are intact. There are no obvious motor or sensory deficits. Coordination appears grossly intact. Speech is normal. Psychiatric: Cooperative, appropriate mood & affect, normal judgment. - Labs CBC & Chem 7: 12/20/23 09:25 12/20/23 09:25 Labs: Abnormal Lab Results - Last 24 Hours (Table) 12/20/23 Range/Units 20:19 APTT 49.4 H (22.0-30.0) sec Assessment and Plan Assessment: Impression: Acute hypoxemic respiratory failure secondary to an acute exacerbation of chronic obstructive pulmonary disease. D-dimer mildly elevated. VQ scan shows indeterminant probability for pulmonary embolismTroponin leak. Currently on a heparin drip, negative venous Dopplers Former smoker History of CVA/TIA History of hypertension History of anxiety History of chronic neck pain Recommendation: Continue bronchodilators Continue Symbicort Cut down on steroids as the patient seems to be quite anxious and emotional Continue heparin if felt necessary by cardiology will continue to follow Time with Patient: Less than 30
[2023-12-21] MEDS: FORMOTEROL FUMARATE 20 MCG/2 ML NEBU INHALATION SCH (20:20)
[2023-12-21] MEDS: BUDESONIDE 1 MG/2 ML NEBU INHALATION SCH (20:20)
--- NOTE | 2023-12-22 06:42 | PN ---
PROGRESS NOTE This is a 68-year-old lady who came into the hospital with shortness of breath, seems to have an exacerbation of COPD as well. Troponin was borderline elevated but flat. I am recommending that we will do a Lexiscan stress test. LV systolic function is fairly well preserved. The patient is more comfortable, resting. Her troponin was 0.3 and 0.2 and 0.2. Clinically, the patient appears to be more stable today. Vitals are stable. JVD is not evident. S1-S2 heard normally. Short systolic murmur noted. Lungs reveal improved air entry. Abdomen is soft. Lower extremities reveal diminished pulses. Central nervous system is normal. I will proceed with a Lexiscan stress test tomorrow and based on this, we will make further recommendations. Echo revealed preserved systolic function. MMODL / IJN: [id number] /
[2023-12-22] MEDS: predniSONE 20 MG TAB PO SCH (08:19)
[2023-12-22] MEDS: ASPIRIN 81 MG PO SCH (08:19)
[2023-12-22 09:50] LABS: HCT 36.2 % (34.0-46.0); HGB 11.8 gm/dL (11.4-16.0); MCH 30.4 pg (25.0-35.0); MCHC 32.5 g/dL (31.0-37.0); MCV 93.6 fL (80.0-100.0); Mean Platelet Volume 7.3; Platelet Count 270 k/uL (150-450); RBC 3.87 m/uL (3.80-5.40); RDW 13.8 % (11.5-15.5); WBC 6.9 k/uL (3.8-10.6)
[2023-12-22] MEDS ORDERED: DOBUTamine DRIP for NUC MED 500 MG in DEXTROSE/WATER 1 250ML.BAG IV PRN (09:50)
[2023-12-22 10:43] LABS: African American GFR (CKD) >90 (>60 ml/min/1.73 sqM); Anion Gap 10 mmol/L; Blood Urea Nitrogen 5 mg/dL (7-17); Calcium 8.6 mg/dL (8.4-10.2); Carbon Dioxide 21 mmol/L (22-30); Chloride 110 mmol/L (98-107); Glucose 79 mg/dL (74-99); Non-African American GFR(CKD) >90 (>60 ml/min/1.73 sqM); Potassium 2.9 mmol/L (3.5-5.1); Sodium 141 mmol/L (137-145)
[2023-12-22] MEDS: POTASSIUM CHLORIDE 20 MEQ in WATER FOR INJECTION 1 100ML.BAG IVPB STA (11:24)
[2023-12-22] MEDS: POTASSIUM CHLORIDE ER 20 MEQ TAB.ER PO STA (11:24)
--- NOTE | 2023-12-22 12:04 | P.PN ---
Subjective Progress Note Date: 12/22/23 * 68-year-old gentleman with past medical history significant for COPD, history of hypertension, history of TIA, degenerative arthritis, presents to the emergency department with complaints of shortness of breath that has been ongoing for the last 2 weeks. Patient also complained of associated midsternal chest pain that has been going on for the last few days however at the time of presentation it had resolved. Patient has been ill with diarrhea for 2 weeks with fever and nonproductive cough. * Workup in ER included CBC which showed normal WBC count hemoglobin and platelet count. Serum chemistry showed sodium 136 potassium 3.6 carbon dioxide 19 BUN 7 creatinine 0.65 * Troponin obtained 0.377, followed by 0.234 * EKG obtained in ER showed sinus tachycardia without significant ST segment changes * Patient had VQ scan completed which was indeterminate for pulm embolism * Workup in the ER included ACS workup, patient was started on IV heparin, cardiology consulted and was given aspirin * Pulmonary medicine was consulted as well secondary to known history of COPD as well as history of chronic smoker * 12/21/23: Patient seen and evaluated bedside. Vitals reviewed. Blood work pending, patient states breathing has improved, will continue oxygen supplementation breathing treatment cardiology evaluation * 12/22/23: Patient seen and evaluated at bedside, patient transferred from ER to room 372, appreciate input from pulmonary medicine. Continue breathing treatments, continue Symbicort. Echocardiogram shows ejection fraction of 50 to 55%. Will follow-up on troponin. Stress test ordered. Patient will need oxygen for home, nebulizer for home REVIEW OF SYSTEMS: Shortness of breath, chest pain IMPROVED CONSTITUTIONAL: No fever, no malaise, no fatigue. HEENT: No recent visual problems or hearing problems. Denied any sore throat. CARDIOVASCULAR: Shortness of breath, chest pain IMPROVED PULMONARY: No shortness of breath, no cough, no hemoptysis. GASTROINTESTINAL: No diarrhea, no nausea, no vomiting, no abdominal pain. NEUROLOGICAL: No headaches, no weakness, no numbness. HEMATOLOGICAL: Denies any bleeding or petechiae. GENITOURINARY: Denies any burning micturition, frequency, or urgency. MUSCULOSKELETAL/RHEUMATOLOGICAL: Denies any joint pain, swelling, or any muscle pain. ENDOCRINE: Denies any polyuria or polydipsia. PHYSICAL EXAMINATION: GENERAL: The patient is alert and oriented x3, ill appearance, nasal cannula in place HEENT: Pupils are round and equally reacting to light. EOMI. No scleral icterus. CARDIOVASCULAR: S1 and S2 present. PULMONARY: Chest is clear to auscultation, no wheezing or crackles. ABDOMEN: Soft, nontender, nondistended, normoactive bowel sounds. No palpable organomegaly. MUSCULOSKELETAL: No joint swelling or deformity. EXTREMITIES: No cyanosis, clubbing, or pedal edema. NEUROLOGICAL: Gross neurological examination did not reveal any focal deficits. Assessment and plan * Non-ST elevated [place] * Acute hypoxemic respiratory failure * History of COPD with exacerbation * History of TIA * History of hypertension * History of chronic pain * In regards to elevated troponin and chest pain, cardiology consulted , patient was on IV heparin for 72 hours discontinued now, serial troponins reviewed, echocardiogram shows preserved ejection fraction, D-dimer was elevated VQ scan indeterminate for PE. Stress test ordered * Continue aspirin, sublingual nitroglycerin * Regards to COPD exacerbation continue prednisone, continue breathing treatments as needed pulmonary medicine consulted * Regards to history of hypertension, continue patient on metoprolol * In regards to history of anxiety continue patient on Paxil Objective - Vital Signs Vital signs: Vital Signs Temp 98.7 F 12/22/23 08:15 Pulse 94 12/22/23 08:15 Resp 17 12/22/23 08:15 BP 169/93 12/22/23 08:15 Pulse Ox 97 12/22/23 08:15 FiO2 Intake & Output 12/21/23 12/22/23 12/22/23 18:59 06:59 18:59 Intake Total 71.939 10 Balance 71.939 10 Intake: IV 10 Invasive Line 1 10 Intake, IV Titration 71.939 Amount Heparin Sod,Pork in 0.45% 71.939 NaCl 25,000 unit In 0.45 % NaCl 1 250ml.bag @ 12 UNITS/KG/HR 7.076 mls/hr IV .Q24H [facility] Rx#: [id number] Other: Voiding Method Toilet # Voids 1 1 - Labs CBC & Chem 7: 12/22/23 09:28 12/22/23 09:28 Labs: Abnormal Lab Results - Last 24 Hours (Table) 12/21/23 Range/Units 20:45 APTT 65.6 H (22.0-30.0) sec
--- NOTE | 2023-12-22 13:51 | P.PN ---
Subjective Progress Note Date: 12/22/23 History of present illness: This is a 68-year-old female presented to hospital due to shortness of breath with COPD exacerbation. Troponins were elevated but flat. EKG was sinus mechanism with inferior lateral nonspecific ST abnormality. LV systolic function fairly well-preserved. Patient is comfortable at this time. Shortness of breath is resolved and she has no chest pain. Blood pressure 132/76, heart rate 77, pulse ox 93% on 2 L nasal cannula. CBC is unremarkable. Sodium 141, potassium 2.9, BUN 5 creatinine 0.59. Repeat troponin 0.04. Echocardiogram reveals EF of 50 to 55%, technically difficult study with mild mitral regurgitation. Physical examination: Gen: This is a 68-year-old female in no acute distress VS: reviewed HEENT: Head is atraumatic, normocephalic. Pupils equal, round. Sclerae is anicteric. LUNGS: Bilateral air entry. No intercostal retractions. HEART: Regular rate and rhythm. Short systolic murmur. ABDOMEN: Soft No tenderness. EXTREMITIES: No pedal edema. No calf tenderness. NEUROLOGICAL: Patient is awake, alert and oriented x3. Assessment: COPD exacerbation Non-ST elevated [place], probable type II from hypoxia Remote history of tobacco use Plan: Continue patient on aspirin 81 mg daily, Lopressor 12.5 mg twice daily Discontinue heparin drip Continue treatment for COPD Schedule patient for dobutamine stress test which will be delayed until tomorrow as patient received her morning beta-anna Further recommendations to follow based upon clinical course Nurse practitioner note has been reviewed, I agree with documented findings and plan of care. Patient was seen and examined. Objective - Vital Signs Vital signs: Vital Signs Temp 98.7 F 12/22/23 08:15 Pulse 81 12/22/23 09:42 Resp 17 12/22/23 08:15 BP 169/93 12/22/23 08:15 Pulse Ox 97 12/22/23 08:15 FiO2 Intake & Output 12/21/23 12/22/23 12/22/23 18:59 06:59 18:59 Intake Total 71.939 10 364.212 Balance 71.939 10 364.212 Intake: IV 10 Invasive Line 1 10 Intake, IV Titration 71.939 184.212 Amount Heparin Sod,Pork in 0.45% 71.939 184.212 NaCl 25,000 unit In 0.45 % NaCl 1 250ml.bag @ 12 UNITS/KG/HR 7.076 mls/hr IV .Q24H [facility] Rx#: [id number] Oral 180 Other: Voiding Method Toilet Toilet # Voids 1 1 - Labs CBC & Chem 7: 12/22/23 09:28 12/22/23 09:28 Labs: Abnormal Lab Results - Last 24 Hours (Table) 12/21/23 12/22/23 Range/Units 20:45 09:28 APTT 65.6 H 63.0 H (22.0-30.0) sec
--- NOTE | 2023-12-22 14:36 | P.PN ---
Subjective Progress Note Date: 12/22/23 Principal diagnosis: Acute hypoxic respiratory failure secondary to acute exacerbation of COPD This is a pleasant 68-year-old female patient with a known history of chronic obstructive pulmonary disease and former smoker who quit back in 2017. She also has a history of hypertension, CVA/TIA, chronic neck pain. She is seen today here in the emergency room with complaints of increasing shortness of breath, cough and congestion. She denies any fever no edema no history of pulmonary embolism. No prior history of pneumonia. Chest x-ray reveals changes of COPD/emphysema but no acute pulmonary process. D-dimer is 0.67. She did undergo VQ scan which was indeterminate for pulmonary embolism. White count 5.2. Hemoglobin 13.6. Platelets 278. Sodium 140. Potassium 4.1. Bicarb 28. BUN 6. Creatinine 0.57. Troponin 0.377, 0.225, 0.234. She is currently on a heparin drip. Urinalysis is cloudy with high WBCs and occasional bacteria. Viral screen was negative. proBNP 2860. She has been initiated on DuoNeb ventilations, Symbicort, prednisone taper. She is maintaining good O2 saturations in the upper 90s on 2 L/min per nasal cannula. Afebrile. Hemodynamically stable. Patient was reevaluated today on 12/21/2023, basically about the same, continues to have intermittent episodes of shortness of breath, no cough no wheezing, no fever no chills no hemoptysis and no chest pain. Remains on heparin for elevated troponin, patient has a relatively normal CBC normal basic metabolic profile, normal renal profile troponin today is 0.225, it was 0.32 on admission. Echocardiogram showed normal right ventricular size and function, and normal LV function, no significant valvular heart disease she has mild mitral regurgitation but no evidence of pulmonary hypertension Reevaluate today on 12/22/2023, patient is feeling much better today, breathing easier, Xanax seems to help with almost plus she is also on bronchodilators for COPD, scheduled to have dobutamine stress test tomorrow, but nonetheless the patient is doing better today and improving steadily. Cardiology discontinued heparin drip, patient is on aspirin and Lopressor. She is on treatment for underlying COPD. CBC is normal basic metabolic profile is abnormal with potassium of 2.9 being addressed by admitting physician. Troponin came down to 0.04 Objective - Vital Signs Vital signs: Vital Signs Temp 98.7 F 12/22/23 08:15 Pulse 78 12/22/23 12:45 Resp 16 12/22/23 12:00 BP 132/76 12/22/23 12:00 Pulse Ox 93 L 12/22/23 12:00 FiO2 Intake & Output 12/21/23 12/22/23 12/22/23 18:59 06:59 18:59 Intake Total 71.939 10 364.212 Balance 71.939 10 364.212 Intake: IV 10 Invasive Line 1 10 Intake, IV Titration 71.939 184.212 Amount Heparin Sod,Pork in 0.45% 71.939 184.212 NaCl 25,000 unit In 0.45 % NaCl 1 250ml.bag @ 12 UNITS/KG/HR 7.076 mls/hr IV .Q24H [facility] Rx#: [id number] Oral 180 Other: Voiding Method Toilet Toilet # Voids 1 1 - Exam General: The patient is awake and alert, in no distress, less anxious today, on 2 L nasal cannula O2 sats of 93% Skin: Skin is warm and dry and no rashes or lesions are noted. Eye: Pupils are equal, round and reactive to light, extra-ocular movements are intact; there is normal conjunctiva bilaterally. Ears, nose, mouth and throat: There are moist mucous membranes and no oral lesions. Neck: The neck is supple, there is no tenderness or JVD. Cardiovascular: There is a regular rate and rhythm. No murmur, rub or gallop is appreciated. Respiratory: Decreased breath sound bilaterally no rhonchi no wheezes Gastrointestinal: Soft, non-distended, non-tender abdomen without masses or organomegaly noted. There is no rebound or guarding present. Bowel sounds are unremarkable. Back: There is no tenderness to palpation in the midline. There is no obvious deformity. Musculoskeletal: Normal ROM, no tenderness, There is no pedal edema. There is no calf tenderness or swelling. No cords were appreciated. Neurological: CN II-XII intact, Cranial nerves III through XII are intact. There are no obvious motor or sensory deficits. Coordination appears grossly intact. Speech is normal. Psychiatric: Cooperative, appropriate mood & affect, normal judgment. - Labs CBC & Chem 7: 12/22/23 09:28 12/22/23 09:28 Labs: Abnormal Lab Results - Last 24 Hours (Table) 12/21/23 12/22/23 12/22/23 Range/Units 20:45 09:28 09:28 APTT 65.6 H 63.0 H (22.0-30.0) sec Potassium 2.9 L (3.5-5.1) mmol/L Chloride 110 H (98-107) mmol/L Carbon Dioxide 21 L (22-30) mmol/L BUN 5 L (7-17) mg/dL Troponin I (0.000-0.034) ng/mL 12/22/23 Range/Units 09:28 APTT (22.0-30.0) sec Potassium (3.5-5.1) mmol/L Chloride (98-107) mmol/L Carbon Dioxide (22-30) mmol/L BUN (7-17) mg/dL Troponin I 0.040 H* (0.000-0.034) ng/mL Assessment and Plan Assessment: Impression: Acute hypoxemic respiratory failure secondary to an acute exacerbation of chronic obstructive pulmonary disease. D-dimer mildly elevated. VQ scan shows indeterminant probability for pulmonary embolismTroponin leak. Currently on a heparin drip, negative venous Dopplers Former smoker History of CVA/TIA History of hypertension History of anxiety History of chronic neck pain Recommendation: Continue bronchodilators Continue Symbicort Continue lower dose of prednisone as prednisone made her quite anxious and emotional Cardiology is addressing dobutamine stress test tomorrow. Will continue to Time with Patient: Less than 30
[2023-12-23] MEDS ORDERED: DOBUTamine DRIP for NUC MED 500 MG in DEXTROSE/WATER 1 250ML.BAG IV PRN (06:00)
[2023-12-23] MEDS ORDERED: DOBUTamine DRIP for NUC MED 500 MG/250 ML BAG IV ONE (08:00)
[2023-12-23 10:33] LABS: HCT 36.4 % (34.0-46.0); HGB 12.1 gm/dL (11.4-16.0); MCH 30.5 pg (25.0-35.0); MCHC 33.3 g/dL (31.0-37.0); MCV 91.6 fL (80.0-100.0); Mean Platelet Volume 7.7; Platelet Count 253 k/uL (150-450); RBC 3.98 m/uL (3.80-5.40); RDW 14.1 % (11.5-15.5)
[2023-12-23 11:11] LABS: African American GFR (CKD) >90 (>60 ml/min/1.73 sqM); Anion Gap 8 mmol/L; Blood Urea Nitrogen 3 mg/dL (7-17); Calcium 8.7 mg/dL (8.4-10.2); Carbon Dioxide 25 mmol/L (22-30); Chloride 106 mmol/L (98-107); Glucose 79 mg/dL (74-99); Non-African American GFR(CKD) >90 (>60 ml/min/1.73 sqM); Potassium 3.2 mmol/L (3.5-5.1); Sodium 139 mmol/L (137-145)
[2023-12-23] MEDS: POTASSIUM CHLORIDE ER 20 MEQ TAB.ER PO STA (12:08)
--- NOTE | 2023-12-23 12:53 | P.PN ---
Subjective Progress Note Date: 12/23/23 * 68-year-old gentleman with past medical history significant for COPD, history of hypertension, history of TIA, degenerative arthritis, presents to the emergency department with complaints of shortness of breath that has been ongoing for the last 2 weeks. Patient also complained of associated midsternal chest pain that has been going on for the last few days however at the time of presentation it had resolved. Patient has been ill with diarrhea for 2 weeks with fever and nonproductive cough. * Workup in ER included CBC which showed normal WBC count hemoglobin and platelet count. Serum chemistry showed sodium 136 potassium 3.6 carbon dioxide 19 BUN 7 creatinine 0.65 * Troponin obtained 0.377, followed by 0.234 * EKG obtained in ER showed sinus tachycardia without significant ST segment changes * Patient had VQ scan completed which was indeterminate for pulm embolism * Workup in the ER included ACS workup, patient was started on IV heparin, cardiology consulted and was given aspirin * Pulmonary medicine was consulted as well secondary to known history of COPD as well as history of chronic smoker * 12/21/23: Patient seen and evaluated bedside. Vitals reviewed. Blood work pending, patient states breathing has improved, will continue oxygen supplementation breathing treatment cardiology evaluation * 12/22/23: Patient seen and evaluated at bedside, patient transferred from ER to room 372, appreciate input from pulmonary medicine. Continue breathing treatments, continue Symbicort. Echocardiogram shows ejection fraction of 50 to 55%. Will follow-up on troponin. Stress test ordered. Patient will need oxygen for home, nebulizer for home * 12/23/23: Patient seen and evaluated at bedside, patient scheduled for stress test today, yesterday patient received beta-anna hence stress test had to be postponed. Patient remains on 2 L of oxygen, saturating 97%. Continue patient on breathing treatment receiving DuoNeb as needed will need oxygen for home prescription signed. Patient continues to remain short of breath REVIEW OF SYSTEMS: Shortness of breath, chest pain IMPROVED CONSTITUTIONAL: No fever, no malaise, no fatigue. HEENT: No recent visual problems or hearing problems. Denied any sore throat. CARDIOVASCULAR: Shortness of breath, chest pain IMPROVED PULMONARY: No shortness of breath, no cough, no hemoptysis. GASTROINTESTINAL: No diarrhea, no nausea, no vomiting, no abdominal pain. NEUROLOGICAL: No headaches, no weakness, no numbness. HEMATOLOGICAL: Denies any bleeding or petechiae. GENITOURINARY: Denies any burning micturition, frequency, or urgency. MUSCULOSKELETAL/RHEUMATOLOGICAL: Denies any joint pain, swelling, or any muscle pain. ENDOCRINE: Denies any polyuria or polydipsia. PHYSICAL EXAMINATION: GENERAL: The patient is alert and oriented x3, ill appearance, nasal cannula in place HEENT: Pupils are round and equally reacting to light. EOMI. No scleral icterus. CARDIOVASCULAR: S1 and S2 present. Rate controlled PULMONARY: Chest is clear to auscultation, no wheezing or crackles. ABDOMEN: Soft, nontender, nondistended, normoactive bowel sounds. No palpable organomegaly. MUSCULOSKELETAL: No joint swelling or deformity. EXTREMITIES: No cyanosis, clubbing, or pedal edema. NEUROLOGICAL: Gross neurological examination did not reveal any focal deficits. Assessment and plan * Non-ST elevated [place] * Acute hypoxemic respiratory failure * History of COPD with exacerbation * History of TIA * History of hypertension * History of chronic pain * In regards to elevated troponin and chest pain, cardiology consulted , patient was on IV heparin for 72 hours discontinued 12/21,, serial troponins reviewed, echocardiogram shows preserved ejection fraction, D-dimer was elevated VQ scan indeterminate for PE. Stress test ordered pending * Continue aspirin, sublingual nitroglycerin * Regards to COPD exacerbation continue prednisone, continue breathing treatments as needed, Mucinex ordered, pulmonary medicine consulted * Regards to history of hypertension, continue patient on metoprolol * In regards to history of anxiety continue patient on Paxil Objective - Vital Signs Vital signs: Vital Signs Temp 97.4 F L 12/23/23 07:46 Pulse 79 12/23/23 07:46 Resp 17 12/23/23 07:46 BP 152/84 12/23/23 07:46 Pulse Ox 97 12/23/23 07:46 FiO2 Intake & Output 12/22/23 12/23/23 12/23/23 18:59 06:59 18:59 Intake Total 364.212 Balance 364.212 Intake: Intake, IV Titration 184.212 Amount Heparin Sod,Pork in 0.45% 184.212 NaCl 25,000 unit In 0.45 % NaCl 1 250ml.bag @ 12 UNITS/KG/HR 7.076 mls/hr IV .Q24H [facility] Rx#: [id number] Oral 180 Other: Voiding Method Toilet Toilet Toilet # Voids 1 3 1 - Labs CBC & Chem 7: 12/23/23 09:09 12/23/23 09:09 Labs: Abnormal Lab Results - Last 24 Hours (Table) 12/22/23 12/22/23 12/22/23 Range/Units 09:28 09: 09:28 APTT 63.0 H (22.0-30.0) sec Potassium 2.9 L (3.5-5.1) mmol/L Chloride 110 H (98-107) mmol/L Carbon Dioxide 21 L (22-30) mmol/L BUN 5 L (7-17) mg/dL Troponin I 0.040 H* (0.000-0.034) ng/mL
--- NOTE | 2023-12-23 15:45 | P.PN ---
Subjective Progress Note Date: 12/23/23 Principal diagnosis: Acute hypoxic respiratory failure secondary to acute exacerbation of COPD This is a pleasant 68-year-old female patient with a known history of chronic obstructive pulmonary disease and former smoker who quit back in 2017. She also has a history of hypertension, CVA/TIA, chronic neck pain. She is seen today here in the emergency room with complaints of increasing shortness of breath, cough and congestion. She denies any fever no edema no history of pulmonary embolism. No prior history of pneumonia. Chest x-ray reveals changes of COPD/emphysema but no acute pulmonary process. D-dimer is 0.67. She did undergo VQ scan which was indeterminate for pulmonary embolism. White count 5.2. Hemoglobin 13.6. Platelets 278. Sodium 140. Potassium 4.1. Bicarb 28. BUN 6. Creatinine 0.57. Troponin 0.377, 0.225, 0.234. She is currently on a heparin drip. Urinalysis is cloudy with high WBCs and occasional bacteria. Viral screen was negative. proBNP 2860. She has been initiated on DuoNeb ventilations, Symbicort, prednisone taper. She is maintaining good O2 saturations in the upper 90s on 2 L/min per nasal cannula. Afebrile. Hemodynamically stable. Patient was reevaluated today on 12/21/2023, basically about the same, continues to have intermittent episodes of shortness of breath, no cough no wheezing, no fever no chills no hemoptysis and no chest pain. Remains on heparin for elevated troponin, patient has a relatively normal CBC normal basic metabolic profile, normal renal profile troponin today is 0.225, it was 0.32 on admission. Echocardiogram showed normal right ventricular size and function, and normal LV function, no significant valvular heart disease she has mild mitral regurgitation but no evidence of pulmonary hypertension Reevaluate today on 12/22/2023, patient is feeling much better today, breathing easier, Xanax seems to help with almost plus she is also on bronchodilators for COPD, scheduled to have dobutamine stress test tomorrow, but nonetheless the patient is doing better today and improving steadily. Cardiology discontinued heparin drip, patient is on aspirin and Lopressor. She is on treatment for underlying COPD. CBC is normal basic metabolic profile is abnormal with potassium of 2.9 being addressed by admitting physician. Troponin came down to 0.04 Reevaluate today on 12/23/2023, patient continues to do well, she has no active pulmonary symptoms, no cough no wheezing no shortness of breath. Patient underwent dobutamine stress test today, results of which are pending, in the meantime the patient is being considered for discharge planning. No cough no wheezing no fever no chills no hemoptysis, I will definitely clear the patient for discharge if cleared by other consultants Objective - Vital Signs Vital signs: Vital Signs Temp 97.4 F L 12/23/23 07:46 Pulse 73 12/23/23 12:32 Resp 17 12/23/23 12:30 BP 147/62 12/23/23 12:30 Pulse Ox 98 12/23/23 12:30 FiO2 Intake & Output 12/22/23 12/23/23 12/23/23 18:59 06:59 18:59 Intake Total 364.212 Balance 364.212 Intake: Intake, IV Titration 184.212 Amount Heparin Sod,Pork in 0.45% 184.212 NaCl 25,000 unit In 0.45 % NaCl 1 250ml.bag @ 12 UNITS/KG/HR 7.076 mls/hr IV .Q24H [facility] Rx#: [id number] Oral 180 Other: Voiding Method Toilet Toilet Toilet # Voids 1 3 1 - Exam General: The patient is awake and alert, in no distress, less anxious today, on 2 L nasal cannula Skin: Skin is warm and dry and no rashes or lesions are noted. Eye: Pupils are equal, round and reactive to light, extra-ocular movements are intact; there is normal conjunctiva bilaterally. Ears, nose, mouth and throat: There are moist mucous membranes and no oral lesions. Neck: The neck is supple, there is no tenderness or JVD. Cardiovascular: There is a regular rate and rhythm. No murmur, rub or gallop is appreciated. Respiratory: Lear bilaterally no rhonchi no wheezes Gastrointestinal: Soft, non-distended, non-tender abdomen without masses or organomegaly noted. There is no rebound or guarding present. Bowel sounds are unremarkable. Back: There is no tenderness to palpation in the midline. There is no obvious deformity. Musculoskeletal: Normal ROM, no tenderness, There is no pedal edema. There is no calf tenderness or swelling. No cords were appreciated. Neurological: CN II-XII intact, Cranial nerves III through XII are intact. There are no obvious motor or sensory deficits. Coordination appears grossly intact. Speech is normal. Psychiatric: Cooperative, appropriate mood & affect, normal judgment. - Labs CBC & Chem 7: 12/23/23 09:09 12/23/23 09:09 Labs: Abnormal Lab Results - Last 24 Hours (Table) 12/23/23 Range/Units 09:09 Potassium 3.2 L (3.5-5.1) mmol/L BUN 3 L (7-17) mg/dL Assessment and Plan Assessment: Impression: Acute hypoxemic respiratory failure secondary to an acute exacerbation of chronic obstructive pulmonary disease. D-dimer mildly elevated. VQ scan shows indeterminant probability for pulmonary embolism clinically this is not a pulmonary embolism picture. Index of suspicion is rather low Troponin leak. Former smoker History of CVA/TIA History of hypertension History of anxiety History of chronic neck pain Recommendation: Continue bronchodilators Continue Symbicort Taper lower dose of prednisone on outpatient basis Awaiting results of the dobutamine stress test. Will continue to follow
--- NOTE | 2023-12-23 17:37 | CA ---
Dobutamine Stress Echocardiogram Report Silva Urbina Age: 68 Gender: F : 1955 Exam Date: 12/23/2023 11:03 Exam Location: [facility] Ordering Physician: Oriana العراقي Referring Physician: [id number] Maria Propulsion Generator Repairer: Danya Hill RDCS Technologist: Ht (in): 67 Wt (lb): 130 Procedure CPT: Indication: chesst pain, elevated trop ICD-9 Codes: Rhythm: Patient History: CP, EFRA, PALP, HTN, FAMILY HX, COPD, EMPHYSEMA Cardiac Medications: SEE CHART Medications in past 24 hours: Contrast: Total Dose (mL): Stress Results Protocol: Dobutamine Peak Dose (???g/kg/min): 30 Duration (min:sec): Atropine:(mg) Target HR: 129 Double Product: 16027 Resting HR: 91 Resting BP: 140 / 74 Peak HR: 144 Peak BP: 173 / 64 Max Predicted HR: 152 95 % Max Predicted HR Stress Summary: BP Response: Reason for Termination: Exceeded target heart rate (85% max predicted) Cardiac Symptoms: ASYMPTOMATIC ECG Analysis Resting EKG: Normal sinus rhythm, normal axis, heart rate 60 beats a minute, nonspecific T-wave flattening in inferior lateral leads Stress EKG: No significant ST-T wave changes diagnostic for ischemia by ST segment analysis. Arrhythmia: There are occasional PVCs noticed during stress test. There were no sustained arrhythmias Echo Analysis Base Echo Analysis: Normal global and segmental systolic function. There is no obvious resting regional wall motion abnormality Low Echo Anaylsis: There is normal augmentation of global and segmental systolic function at low-dose dobutamine infusion. There is no stress- induced regional wall motion abnormality Peak Echo Analysis: There is normal augmentation of global and segmental systolic function at peak dobutamine infusion. There is no stress- induced regional wall motion abnormality Recovery Echo: No obvious regional wall motion abnormality noticed during recovery MEASUREMENTS (Male/Female) Normal Values CONCLUSIONS Overall normal dobutamine echo stress test Nonischemic ECG and echo response to dobutamine infusion Normal clinical and hemodynamic response to dobutamine infusion Dr Usama Naik (Electronically Signed) Final Date: 23 December 2023 17:37
--- NOTE | 2023-12-24 07:24 | P.PN ---
Subjective Progress Note Date: 12/23/23 History of present illness: This is a 68-year-old female presented to hospital due to shortness of breath with COPD exacerbation. Troponins were elevated but flat. EKG was sinus mechanism with inferior lateral nonspecific ST abnormality. LV systolic function fairly well-preserved. Patient is comfortable at this time. Shortness of breath is resolved and she has no chest pain. Blood pressure 132/76, heart rate 77, pulse ox 93% on 2 L nasal cannula. CBC is unremarkable. Sodium 141, potassium 2.9, BUN 5 creatinine 0.59. Repeat troponin 0.04. Echocardiogram reveals EF of 50 to 55%, technically difficult study with mild mitral regurgitation. 12/22 Patient is scheduled for dobutamine stress test today. Heart rate 72, blood pressure 147/62, pulse ox 98% on 2 L nasal cannula. Repeat blood work reveals normal CBC. Potassium 3.2, BUN 3 creatinine 0.56. Physical examination: Gen: This is a 68-year-old female in no acute distress VS: reviewed HEENT: Head is atraumatic, normocephalic. Pupils equal, round. Sclerae is anicteric. LUNGS: Bilateral air entry. No intercostal retractions. HEART: Regular rate and rhythm. Short systolic murmur. ABDOMEN: Soft No tenderness. EXTREMITIES: No pedal edema. No calf tenderness. NEUROLOGICAL: Patient is awake, alert and oriented x3. Assessment: COPD exacerbation Non-ST elevated [place], probable type II from hypoxia Remote history of tobacco use Plan: Continue patient on aspirin 81 mg daily, Lopressor 12.5 mg twice daily Continue treatment for COPD Patient is undergoing dobutamine stress test today. If this is normal, patient is cleared for discharge from cardiology. Further recommendations to follow based upon clinical course Nurse practitioner note has been reviewed, I agree with documented findings and plan of care. Patient was seen and examined. Objective - Vital Signs Vital signs: Vital Signs Temp 97.4 F L 12/23/23 07:46 Pulse 73 12/23/23 12:32 Resp 17 12/23/23 12:30 BP 147/62 12/23/23 12:30 Pulse Ox 98 12/23/23 12:30 FiO2 Intake & Output 12/22/23 12/23/23 12/23/23 18:59 06:59 18:59 Intake Total 364.212 Balance 364.212 Intake: Intake, IV Titration 184.212 Amount Heparin Sod,Pork in 0.45% 184.212 NaCl 25,000 unit In 0.45 % NaCl 1 250ml.bag @ 12 UNITS/KG/HR 7.076 mls/hr IV .Q24H [facility] Rx#: [id number] Oral 180 Other: Voiding Method Toilet Toilet Toilet # Voids 1 3 1 - Labs CBC & Chem 7: 12/23/23 09:09 12/23/23 09:09 Labs: Abnormal Lab Results - Last 24 Hours (Table) 12/23/23 Range/Units 09:09 Potassium 3.2 L (3.5-5.1) mmol/L BUN 3 L (7-17) mg/dL
[2023-12-24 12:41] LABS: HCT 42.7 % (34.0-46.0); HGB 13.6 gm/dL (11.4-16.0); MCH 30.1 pg (25.0-35.0); MCHC 31.8 g/dL (31.0-37.0); MCV 94.8 fL (80.0-100.0); Mean Platelet Volume 7.5; Platelet Count 305 k/uL (150-450); RBC 4.51 m/uL (3.80-5.40); RDW 13.9 % (11.5-15.5); WBC 10.3 k/uL (3.8-10.6)
[2023-12-24 13:02] LABS: African American GFR (CKD) >90 (>60 ml/min/1.73 sqM); Anion Gap 8 mmol/L; Blood Urea Nitrogen 8 mg/dL (7-17); Calcium 9.5 mg/dL (8.4-10.2); Carbon Dioxide 28 mmol/L (22-30); Chloride 101 mmol/L (98-107); Glucose 109 mg/dL (74-99); Non-African American GFR(CKD) >90 (>60 ml/min/1.73 sqM); Sodium 137 mmol/L (137-145)
--- NOTE | 2023-12-24 14:16 | P.PN ---
Subjective Progress Note Date: 12/24/23 History of present illness: This is a 68-year-old female presented to hospital due to shortness of breath with COPD exacerbation. Troponins were elevated but flat. EKG was sinus mechanism with inferior lateral nonspecific ST abnormality. LV systolic function fairly well-preserved. Patient is comfortable at this time. Shortness of breath is resolved and she has no chest pain. Blood pressure 132/76, heart rate 77, pulse ox 93% on 2 L nasal cannula. CBC is unremarkable. Sodium 141, potassium 2.9, BUN 5 creatinine 0.59. Repeat troponin 0.04. Echocardiogram reveals EF of 50 to 55%, technically difficult study with mild mitral regurgitation. 12/22 Patient is scheduled for dobutamine stress test today. Heart rate 72, blood pressure 147/62, pulse ox 98% on 2 L nasal cannula. Repeat blood work reveals normal CBC. Potassium 3.2, BUN 3 creatinine 0.56. 12/23 Patient underwent dobutamine stress test yesterday which was negative. Patient denies any chest pain. Blood pressure 143/92, heart rate 96, pulse ox 95% on 2 L nasal cannula. Sodium 137, potassium 4, creatinine 0.66. Physical examination: Gen: This is a 68-year-old female in no acute distress VS: reviewed HEENT: Head is atraumatic, normocephalic. Pupils equal, round. Sclerae is anicteric. LUNGS: Bilateral air entry. No intercostal retractions. HEART: Regular rate and rhythm. Short systolic murmur. ABDOMEN: Soft No tenderness. EXTREMITIES: No pedal edema. No calf tenderness. NEUROLOGICAL: Patient is awake, alert and oriented x3. Assessment: COPD exacerbation Non-ST elevated [place], probable type II from hypoxia Remote history of tobacco use Plan: Continue patient on aspirin 81 mg daily, Lopressor 12.5 mg twice daily Continue treatment for COPD Patient is cleared for discharge from cardiology on current cardiac medications. Nurse practitioner note has been reviewed, I agree with documented findings and plan of care. Patient was seen and examined. Objective - Vital Signs Vital signs: Vital Signs Temp 98.5 F 12/24/23 04:00 Pulse 100 12/24/23 04:00 Resp 16 12/24/23 04:00 BP 126/78 12/24/23 04:00 Pulse Ox 94 L 12/24/23 04:00 FiO2 Intake & Output 12/23/23 12/24/23 12/24/23 18:59 06:59 18:59 Intake Total 180 Balance 180 Intake: Oral 180 Other: Voiding Method Toilet Toilet # Voids 1 1 - Labs CBC & Chem 7: 12/24/23 11:06 12/24/23 11:06 Labs: Abnormal Lab Results - Last 24 Hours (Table) 12/23/23 Range/Units 09:09 Potassium 3.2 L (3.5-5.1) mmol/L BUN 3 L (7-17) mg/dL
[2023-12-24] MEDS: METOPROLOL TARTRATE 12.5 MG TAB PO SCH (14:54)
--- NOTE | 2023-12-24 15:54 | P.PN ---
Subjective Progress Note Date: 12/24/23 Principal diagnosis: Acute hypoxic respiratory failure secondary to acute exacerbation of COPD This is a pleasant 68-year-old female patient with a known history of chronic obstructive pulmonary disease and former smoker who quit back in 2017. She also has a history of hypertension, CVA/TIA, chronic neck pain. She is seen today here in the emergency room with complaints of increasing shortness of breath, cough and congestion. She denies any fever no edema no history of pulmonary embolism. No prior history of pneumonia. Chest x-ray reveals changes of COPD/emphysema but no acute pulmonary process. D-dimer is 0.67. She did undergo VQ scan which was indeterminate for pulmonary embolism. White count 5.2. Hemoglobin 13.6. Platelets 278. Sodium 140. Potassium 4.1. Bicarb 28. BUN 6. Creatinine 0.57. Troponin 0.377, 0.225, 0.234. She is currently on a heparin drip. Urinalysis is cloudy with high WBCs and occasional bacteria. Viral screen was negative. proBNP 2860. She has been initiated on DuoNeb ventilations, Symbicort, prednisone taper. She is maintaining good O2 saturations in the upper 90s on 2 L/min per nasal cannula. Afebrile. Hemodynamically stable. Patient was reevaluated today on 12/21/2023, basically about the same, continues to have intermittent episodes of shortness of breath, no cough no wheezing, no fever no chills no hemoptysis and no chest pain. Remains on heparin for elevated troponin, patient has a relatively normal CBC normal basic metabolic profile, normal renal profile troponin today is 0.225, it was 0.32 on admission. Echocardiogram showed normal right ventricular size and function, and normal LV function, no significant valvular heart disease she has mild mitral regurgitation but no evidence of pulmonary hypertension Reevaluate today on 12/22/2023, patient is feeling much better today, breathing easier, Xanax seems to help with almost plus she is also on bronchodilators for COPD, scheduled to have dobutamine stress test tomorrow, but nonetheless the patient is doing better today and improving steadily. Cardiology discontinued heparin drip, patient is on aspirin and Lopressor. She is on treatment for underlying COPD. CBC is normal basic metabolic profile is abnormal with potassium of 2.9 being addressed by admitting physician. Troponin came down to 0.04 Reevaluate today on 12/23/2023, patient continues to do well, she has no active pulmonary symptoms, no cough no wheezing no shortness of breath. Patient underwent dobutamine stress test today, results of which are pending, in the meantime the patient is being considered for discharge planning. No cough no wheezing no fever no chills no hemoptysis, I will definitely clear the patient for discharge if cleared by other consultants Patient was reevaluated today on 12/24/2023, she is doing quite well from the pulmonary perspective, I believe the patient had a relatively normal dobutamine stress test, if cleared by cardiology for discharge, I will clear the patient to be discharged home on bronchodilators and possibly on oxygen. She should come back and see me in the office within 1 week postdischarge. Objective - Vital Signs Vital signs: Vital Signs Temp 98.5 F 12/24/23 11:29 Pulse 97 12/24/23 12:10 Resp 20 12/24/23 11:29 BP 143/92 12/24/23 11:29 Pulse Ox 95 12/24/23 11:29 FiO2 Intake & Output 12/23/23 12/24/23 12/24/23 18:59 06:59 18:59 Intake Total 180 598 Balance 180 598 Weight 58.967 kg Intake: Oral 180 598 Other: Voiding Method Toilet Toilet Toilet # Voids 1 1 2 - Exam General: The patient is awake and alert, in no distress, less anxious today, on 2 L nasal cannula Skin: Skin is warm and dry and no rashes or lesions are noted. Eye: Pupils are equal, round and reactive to light, extra-ocular movements are intact; there is normal conjunctiva bilaterally. Ears, nose, mouth and throat: There are moist mucous membranes and no oral le sions. Neck: The neck is supple, there is no tenderness or JVD. Cardiovascular: There is a regular rate and rhythm. No murmur, rub or gallop is appreciated. Respiratory: Lear bilaterally no rhonchi no wheezes Gastrointestinal: Soft, non-distended, non-tender abdomen without masses or organomegaly noted. There is no rebound or guarding present. Bowel sounds are unremarkable. Back: There is no tenderness to palpation in the midline. There is no obvious deformity. Musculoskeletal: Normal ROM, no tenderness, There is no pedal edema. There is no calf tenderness or swelling. No cords were appreciated. Neurological: CN II-XII intact, Cranial nerves III through XII are intact. There are no obvious motor or sensory deficits. Coordination appears grossly intact. Speech is normal. Psychiatric: Cooperative, appropriate mood & affect, normal judgment. - Labs CBC & Chem 7: 12/24/23 11:06 12/24/23 11:06 Labs: Abnormal Lab Results - Last 24 Hours (Table) 12/24/23 Range/Units 11:06 Glucose 109 H (74-99) mg/dL Assessment and Plan Assessment: Impression: Acute hypoxemic respiratory failure secondary to an acute exacerbation of chronic obstructive pulmonary disease. D-dimer mildly elevated. VQ scan shows indeterminant probability for pulmonary embolism clinically this is not a pulmonary embolism picture. Index of suspicion is rather low Troponin leak. Former smoker History of CVA/TIA History of hypertension History of anxiety History of chronic neck pain Recommendation: Continue bronchodilators Continue Symbicort Lower dose of prednisone to be tapered on outpatient basis Patient to see me in 1 week postdischarge Patient needs to be cleared by cardiology and I will clear for discharge Will continue to follow Time with Patient: Less than 30
[2023-12-24 17:02] VITALS: BP 143/92; PULSE 97; RESP 20; TEMP 98.5
[2023-12-24 17:03] VITALS: BMI 20.3
== END 2023-12-24 16:31 | disposition home or self-care (01) | DRG 190 ==
LOC: EC 17:37 → 3SCARD 21:00
PROVIDERS: ADMIT Internal Medicine; ATTEND Internal Medicine
DX: J43.9 Emphysema, unspecified (principal); I21.A1 Myocardial infarction type 2; J96.01 Acute respiratory failure with hypoxia; R64 Cachexia; Z11.52 Encounter for screening for COVID-19; M19.90 Unspecified osteoarthritis, unspecified site; Z68.20 Body mass index [BMI] 20.0-20.9, adult; F41.9 Anxiety disorder, unspecified; R79.1 Abnormal coagulation profile; G89.29 Other chronic pain; M54.2 Cervicalgia; I10 Essential (primary) hypertension; Z88.2 Allergy status to sulfonamides; Z91.041 Radiographic dye allergy status; Z86.73 Personal history of transient ischemic attack (TIA), and cerebral infarction without residual deficits
CPT/HCPCS: 36415; 71046; 78582; 80048; 80053; 81001; 83605; 83735; 83880; 84484; 85025; 85027; 85379; 85610; 85730; 87636; 93005; 93306; 93351; 93970; 94640; 94760; 96365; 96366; 99291

== ENCOUNTER → 2024-04-27 | Outpatient (CLI) | payer MEDICARE ==
--- NOTE | 2024-04-28 08:39 | BD ---
EXAMINATION TYPE: Axial Bone Density DATE OF EXAM: 04/27/2024 CLINICAL HISTORY: 68 years old Female. 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 History of Fracture in Adulthood: yes Secondary Osteoporosis: RISK FACTORS HISTORY OF: History of Wrist Fracture: yes, right When: about 5 years ago Surgery to Spine/Hip(right/left)/Wrist (right/left): right wrist When: about 5 years ago MEDICATIONS: EXAM MEASUREMENTS: Bone mineral densitometry was performed using the [email or web address] System. Bone mineral density as measured about the Lumbar spine is: ----- L1-L4(G/cm2): 0.665 T Score Values are as follows: ----- L1: -4.8 ----- L2: -4.7 ----- L3: -3.9 ----- L4: -4.0 ----- L1-L4: -4.3 Z Score Values are as follows: ----- L1: -2.7 ----- L2: -2.6 ----- L3: -1.8 ----- L4: -1.9 ----- L1-L4: -2.2 Bone mineral density has: Decreased 11.8% since study of: 12-02-12 Bone mineral density about the R hip (g/cm2): 0.490 Bone mineral density about the L hip (g/cm2): 0.524 T Score values are as follows: -----R Neck: -4.1 -----L Neck: -3.6 -----R Total: -4.1 -----L Total: -3.8 Z Score values are as follows: -----R Neck: -2.2 -----L Neck: -1.7 -----R Total: -2.4 -----L Total: -2.1 Bone mineral density has: Decreased -26.3% since study of: 12-02-12 FRAX%s: The graph provided illustrates a 43% chance for a major osteoporotic fx and a 24.6% chance fo r the hips probability for fx in 10 years time. IMPRESSION: Osteoporosis (T Score less than -2.5). There is increased fracture risk and therapy is usually indicated based on age. Re-Screen 1-2 years. NOTE: T-SCORE=SD OF THE YOUNG ADULT MEAN.
== END | disposition home or self-care (01) ==
LOC: RADBDWWP 12:38
PROVIDERS: ATTEND Family Medicine
DX: M81.0 Age-related osteoporosis without current pathological fracture (principal); M85.80 Other specified disorders of bone density and structure, unspecified site; Z79.52 Long term (current) use of systemic steroids
CPT/HCPCS: 77080